=== PATIENT | female | born 1980 | race Caucasian/White ===

== ENCOUNTER → 2016-03-13 | Outpatient (CLI) | payer OTHER ==
[~2016-03-13] MED LIST: ACET-1311 PO; CLC100 PO; FENUGREEK PO; IBUP600T44 PO; IRON PO; MTR600X PO; MULT-506 PO; PRENTAB26 PO
== END | disposition home or self-care (01) ==
LOC: C.LABSPEC 13:01
PROVIDERS: ATTEND Obstetrics & Gynecology
DX: Z34.83 Encounter for supervision of other normal pregnancy, third trimester (principal)

== ENCOUNTER 2016-03-31 05:40 | Inpatient (IN) | payer OTHER ==
--- NOTE | 2016-03-24 10:14 | PAT Medication Instructions ---
Service Date Mar 24, 2016. Current Home Medication List Acetaminophen (Tylenol), 650 MG PO PRN Multivit/Min/Iron/Fol Ac/Pren ( Vitamin), 1 TAB PO QPM [Fenugree], 1 TAB PO TID [Iron], 1 TAB PO QPM Medication Instructions For Your Scheduled Surgery - Do not take the following medications the morning of surgery: [Fenugreek], 1 TAB PO TID - Take the following medications the morning of surgery with a sip of water OTHERWISE NOTHING TO EAT OR DRINK AFTER MIDNIGHT: Acetaminophen (Tylenol), 650 MG PO PRN (take if needed up to 4 hours prior to surgery) - Take the following medications as scheduled the night before surgery: [Iron], 1 TAB PO QPM [F[place]ug[place]], 1 TAB PO TID Multivit/Min/Iron/Fol Ac/Pren ( Vitamin), 1 TAB PO QPM If you have any questions please call us at [phone] or [phone] or [phone]
[2016-03-24 10:56] LABS: HEMATOCRIT 31.6 % (37-47); MEAN CORPUSCULAR HEMOGLOBIN 30.1 pg (25-34); MEAN CORPUSCULAR HGB CONC 34.2 g/dl (32-36); MEAN PLATELET VOLUME 9.5 fL (7.4-10.4); PLATELET COUNT 257 K/uL (130-400); RED BLOOD COUNT 3.59 M/uL (4.2-5.4); WHITE BLOOD COUNT 7.81 K/uL (4.8-10.8)
[2016-03-24 11:27] LABS: BASO % 0.1 %; BASO ABS # 0.01 K/uL (0-0.2); COMPLETE YES; EOS % 0.4 %; IG% 0.4 %; LYMPH % 19.3 %; LYMPH ABS # 1.51 K/uL (1.2-3.4); MONO % 6.4 %; NEUT % 73.4 %
--- NOTE | 2016-03-30 21:38 | History and Physical ---
History & Physical Date Mar 30, 2016. Chief Complaint Scheduled section History of Present Illness 35yo @ 40 04/01 presents for scheduled repeat section. complicated by h/o x 1, gluten intolerance and uterine leiomyoma. Also plans for tubal ligation at the time of section. She has been counseled on this in the office. Past Medical/Surgical History PMH: H/o kidney stones PSH: h/o Breast FNA x 2 (benign), x 1, wisdom teeth, teeth implants Additional History Hepatic Disease: No Endocrine Disorder: No Kidney Disease: No Hypertension: No Heart Disease: No Bleeding Tendencies: No Infectious Diseases: No Allergies Coded Allergies: Gluten (Unverified Allergy, Unknown, GLUTEN INTOLERANCE-ABDOMINAL CRAMPING ,FLU LIKE SYMPTOMS, 03/24/16) ALSO BARLEY INTOLERANCE-SAME Hydrocodone (Verified Adverse Reaction, Unknown, NAUSEA AND VOMITING, 03/24) Home Medications Scheduled Acetaminophen (Tylenol), 650 MG PO PRN Multivit/Min/Iron/Fol Ac/Pren ( Vitamin), 1 TAB PO QPM [Fenugree], 1 TAB PO TID [Iron], 1 TAB PO QPM Physical Examination Skin: warm/dry Eyes: normal inspection ENT: normal ENT inspection Head: normocephalic, atraumatic Neck: supple, no adenopathy Respiratory/Chest: normal breath sounds Cardiovascular: regular rate, rhythm Abdomen / GI: non tender Back: normal inspection Extremities: normal inspection Genitourinary - Female: normal pelvic exam Neurologic/Psych: no motor/sensory deficits Diagnosis Term Intrauterine H/o x 1 Plan of Treatment Admit to L&D. Repeat section. Tubal ligation per patient request.
[~2016-03-31] VITALS: Ht 170.2 cm; Wt 94.5 kg
[2016-03-31] VITALS (15 sets, daily range): BP systolic 103–120; BP diastolic 66–75; PULSE 70–89; TEMP 36.5–36.6; O2SAT 96–100; Ht 170.2 cm; Wt 94.5 kg
[~2016-03-31 05:40] MED LIST changes: -CLC100 PO; -IBUP600T44 PO; -MTR600X PO; -MULT-506 PO
[2016-03-31] MEDS ORDERED: LACTATED RINGER'S 1000ML 1,000 ML IV ONE (05:48)
[2016-03-31] MEDS ORDERED: CEFAZOLIN IV 2,000 MG in DEXTROSE 5% 50ML IV SCH (06:00)
[2016-03-31] MEDS ORDERED: CITRIC ACID/SODIUM CITRATE 15 ML UDC PO SCH (06:00)
[2016-03-31] MEDS ORDERED: LACTATED RINGER'S 1000ML 1,000 ML IV SCH (06:00)
[2016-03-31] MEDS ORDERED: PRENTAB26 PO (06:07)
[2016-03-31 06:25] LABS: BASO % 0.3 %; BASO ABS # 0.03 K/uL (0-0.2); COMPLETE YES; EOS % 0.5 %; HEMATOCRIT 32.2 % (37-47); IG% 0.5 %; LYMPH % 24.4 %; LYMPH ABS # 2.31 K/uL (1.2-3.4); MEAN CELL VOLUME 87.7 fL (80-100); MEAN CORPUSCULAR HEMOGLOBIN 29.7 pg (25-34); MEAN CORPUSCULAR HGB CONC 33.9 g/dl (32-36); MEAN PLATELET VOLUME 9.4 fL (7.4-10.4); MONO % 7.2 %; NEUT % 67.1 %; PLATELET COUNT 249 K/uL (130-400); RED BLOOD COUNT 3.67 M/uL (4.2-5.4); WHITE BLOOD COUNT 9.45 K/uL (4.8-10.8)
[2016-03-31] MEDS ORDERED: OXYTOCIN INJ 10 UNITS/ML VIAL ONE (07:01)
[2016-03-31] MEDS ORDERED: PHENYLEPHRINE HCL INJ 10 MG/ML VIAL ONE (07:01)
[2016-03-31] MEDS ORDERED: ONDANSETRON INJ 2 MG/ML 2 ML VIAL ONE ×2 (07:01→07:51)
[2016-03-31] MEDS ORDERED: EpHEDrine SULFATE INJ 50 MG/ML AMP ONE (07:04)
[2016-03-31] MEDS ORDERED: FENTANYL CITRATE INJ 50 MCG/1 ML 2 ML VIAL ONE (07:04)
[2016-03-31] MEDS ORDERED: MoRPHine SULFATE PF 1 MG/ML 10 ML AMP/VIAL ONE (07:04)
--- NOTE | 2016-03-31 07:16 | History & Physical Bridge Note ---
H&P Re-Evaluation Bridge Note: I have examined the patient, reviewed the History & Physical and in the interval since the performance of the History & Physical I have noted the following changes of clinical significance: No changes noted
[2016-03-31] MEDS ORDERED: DEXAMETHASONE SOD INJ 4 MG/ML VIAL ONE (07:51)
[2016-03-31] MEDS ORDERED: EpHEDrine SULFATE 50MG/5ML SYR ONE (08:01)
--- NOTE | 2016-03-31 08:41 | [facility] Post Operative Brief Note ---
Immediate Operative Summary Operative Date Mar 31, 2016. Pre-Operative Diagnosis HISTORY OF SECTION X1; DESIRE FOR PERMANENT STERILZATION Post-Operative Diagnosis SAME Procedure(s) Performed LOW TRANSVERSE SECTION AND BILATERAL TUBAL LIGATION with Filshie clips Surgeon DR KENT [employer] Superintendent Surgeon(s) DR SINGH Estimated Blood Loss 400 CC Findings Viable female , apgars 7/9. Weight pending. Normal tubes, ovaries. Uterus enlarged with left fibroid. Specimens CORD BLOOD CORD GASES PLACENTA-HOLD Drains linares, clear yellow at conclusion of case Anesthesia spinal Complication(s) None Disposition L&D
[2016-03-31] MEDS ORDERED: HYDROCORTISONE ACETATE 25 MG SUPP PR PRN (08:45)
[2016-03-31] MEDS ORDERED: BENZOCAINE 20% AER SPR 82.5 GM CAN EXT PRN (08:45)
[2016-03-31] MEDS ORDERED: SUPERCREAM 0.870 % 15GM JAR EXT PRN (08:45)
[2016-03-31] MEDS ORDERED: DIPHTHERIA/TETANUS/PERTUSSIS 0.5 ML SYR/VIAL IM. ONE (08:45)
[2016-03-31] MEDS ORDERED: SENNA 8.6 MG TAB PO PRN (08:45)
[2016-03-31] MEDS ORDERED: LANOLIN OINT EXT PRN ×2 (08:45)
[2016-03-31] MEDS ORDERED: SODIUM CHLORIDE 0.9% 1000ML 1,000 ML IV PRN (08:51)
[2016-03-31] MEDS ORDERED: LACTATED RINGER'S 1000ML 500 ML IV PRN (08:51)
[2016-03-31] MEDS ORDERED: NALOXONE HCL INJ 0.08 MG in SYRINGE 1.8 ML IV PRN (08:51)
--- NOTE | 2016-03-31 08:55 | Anesthesiology Progress Note ---
Anesthesia Post Op Note Date & Time Mar 31, 2016 at 08:53 Notes Mental Status: alert / awake / arousable, participated in evaluation Pt Amnestic to Procedure: Yes Nausea / Vomiting: adequately controlled Pain: adequately controlled Airway Patency, RR, SpO2: stable & adequate BP & HR: stable & adequate Hydration State: stable & adequate Neuraxial Anesthesia: was administered, sensory block is resolving Anesthetic Complications: no major complications apparent Pt had C/S and b/l tubal ligation under spinal anesthesia for h/o previous C/S. Her anesthetic course was uneventful. Post-op vitals BP 107/56, HR 67, RR 18, SpO2 95% on RA, T 36.5.
[2016-03-31] MEDS ORDERED: NALOXONE HCL 0.4 MG/1 ML VIAL/CARP IV PRN (09:00)
[2016-03-31] MEDS ORDERED: ONDANSETRON INJ 2 MG/ML 2 ML VIAL IV PRN (09:00)
[2016-03-31] MEDS ORDERED: MoRPHine SULFATE 2 MG/ML CARP IV PRN (09:00)
[2016-03-31] MEDS ORDERED: KETOROLAC TROMETHAMINE 30 MG/ML VIAL IV. PRN (09:00)
[2016-03-31] MEDS ORDERED: MEPERIDINE HCL 25 MG/ML CARP IV PRN (09:00)
[2016-03-31] MEDS ORDERED: PROMETHAZINE HCL INJ 25 MG in SODIUM CHLORIDE 0.9% 50ML 50 ML IV PRN (09:00)
[2016-03-31] MEDS ORDERED: NO NARCOTICS OR SEDATIVES SCH (09:00)
[2016-03-31] MEDS ORDERED: NALBUPHINE HCL INJ 10 MG/ML AMP IV PRN (09:00)
[2016-03-31] MEDS ORDERED: DiphenhydrAMINE HCL 50 MG/ML VIAL IV PRN (09:00)
[2016-03-31] MEDS ORDERED: EpHEDrine SULFATE INJ 50 MG/ML AMP IV PRN (09:00)
[2016-03-31] MEDS ORDERED: MoRPHine SULFATE PF 1 MG/ML 10 ML AMP/VIAL EPI PRN (09:00)
[2016-03-31] MEDS: OXYTOCIN INJ 20 UNITS in LACTATED RINGER'S 1000ML 1,000 ML IV SCH ×2 (09:19→17:31)
--- NOTE | 2016-03-31 15:15 | OPERATIVE REPORT ---
DATE OF OPERATION: 03/31/2016 PREOPERATIVE DIAGNOSES: 1. Term intrauterine . 2. History of section x1. 3. Desire for repeat section. 4. Desire for permanent sterilization. 5. Uterine fibroid. POSTOPERATIVE DIAGNOSIS: Same. PROCEDURE PERFORMED: Low transverse section and bilateral tubal ligation with Filshie clips. SURGEON: Olivia Salvador DO. LASER SYSTEMS ENGINEER: Huber SINGH M.D. ESTIMATED BLOOD LOSS: 400 mL. FINDINGS: Viable female , Apgars 7 and 9, weight pending. Normal tubes and ovaries, uterus is enlarged with a left fibroid. SPECIMENS: Cord blood, cord gas and placenta. DRAINS: [place], clear yellow at conclusion of case. ANESTHESIA: Spinal. COMPLICATIONS: None. DISPOSITION: Labor and delivery. DESCRIPTION OF PROCEDURE: The patient was seen in the labor and delivery room where risks, benefits, alternatives to surgery were reviewed. She had previously signed the informed consent in the office. All questions were answered. She stated again that she would like to have bilateral tubal sterilization performed at the time of section. She was then taken to the operating room where spinal anesthesia was introduced. She received 2 grams of Ancef prior to surgery. She was prepared and draped in the usual sterile fashion in the supine position with a leftward tilt. A timeout was called and confirmed. A Pfannenstiel skin incision was made with a scalpel and carried through to the underlying layer of the fascia with sharp, blunt and electrocautery dissection. The fascia was nicked at midline and the incision was extended both bluntly and sharply. The superior aspect of the fascial incision was grasped with Henri clamps x2, elevated off the underlying rectus abdominis muscles and dissected bluntly. In a similar fashion, the inferior aspect of this incision was dissected. The muscles were at midline with a hemostat and the peritoneum was entered bluntly digitally and this incision was extended bilaterally bluntly. The bladder blade was placed. The bladder flap was created with Metzenbaum scissors. The bladder blade was replaced. The low transverse incision was created with a new scalpel. This incision was extended cephalad/caudad manually. The membranes were ruptured with an Allis clamp. The was delivered from a cephalic presentation. The head delivered. Nuchal cord x1 was noted and easily reduced. The anterior and posterior shoulders were delivered followed by the body. A spontaneous cry was heard on the field. The cord was doubly clamped and cut. A segment was retained for cord gases. Cord blood was obtained. The baby was handed off to the waiting pediatrics team. The placenta was then delivered using gentle traction. The uterus was exteriorized from the abdomen. The uterus was cleared of all clots and debris. The hysterotomy incision was reapproximated using 0 Vicryl in a running locked stitch, a second layer of the same suture was used to imbricate the hysterotomy. The bilateral tubal ligation was performed using Filshie clips. First the right tube was grasped with a [place] confirmed to be fallopian tube, fimbria were visible. The Filshie clip was placed on the right tube, in a similar fashion the left tubal ligation was performed. The uterus was then gently returned to the abdomen. The gutters were cleared of all clots and debris. The hysterotomy incision was again inspected and noted to be hemostatic. The fascia was then reapproximated with 0 Vicryl in a running stitch. The subcutaneous tissue was reapproximated using 2-0 plain gut in a running stitch and the skin was reapproximated using 4-0 Vicryl in a running subcuticular stitch. The patient and the baby tolerated the procedure well. Sponge, instrument and needle counts were correct at the conclusion of the case. I attest to the content of the Intraoperative Record and any orders documented therein. Any exceptions are noted below. YIFAN
[2016-03-31] MEDS ORDERED: CEFAZOLIN IV 2,000 MG in DEXTROSE 5% 50ML 50 ML IV SCH (17:36)
[2016-03-31] MEDS: DOCUSATE SODIUM 100 MG CAP PO SCH (20:40)
[2016-04-01] VITALS (7 sets, daily range): BP systolic 96–123; BP diastolic 64–67; PULSE 80–90; TEMP 36.7–36.9; O2SAT 95–98
[2016-04-01] MEDS ORDERED: DC INTRASPINAL MORPHINE SCH (02:00)
[2016-04-01] MEDS ORDERED: KETOROLAC TROMETHAMINE 30 MG/ML VIAL IV. PRN (02:00)
[2016-04-01] MEDS ORDERED: ONDANSETRON INJ 2 MG/ML 2 ML VIAL IV PRN (02:00)
[2016-04-01] MEDS ORDERED: DiphenhydrAMINE HCL 50 MG/ML VIAL IV PRN (02:00)
--- NOTE | 2016-04-01 06:57 | Progress Note ---
Subjective Apr 01, 2016. Subjective conversation w/ patient, physical exam Ambulation: limited ambulation Voiding: linares catheter in place Passing Gas: No Diet Tolerance: Clear Liquids Lochia: Moderate Feeding Type: Breast Feeding Pain: Minor Incisional Pain Review of Systems Constitutional: No chills, No fever Respiratory: No cough, No shortness of breath Cardiac: No chest pain Breast: No breast pain Abdomen: No nausea, No pain, No vomiting Female : No dysuria Objective Vital Signs Date Time Temp Pulse Resp B/P Pulse Ox O2 Delivery O2 Flow Rate FiO2 04/01/16 04:00 36.8 90 16 97/66 95 Room Air 04/01/16 04:00 95 Room Air 04/01/16 02:00 16 97 04/01/16 01:15 96 Room Air 04/01/16 01:15 36.7 80 16 123/67 96 Room Air 04/01/16 01:00 16 98 04/01/16 00:00 18 97 03/31/16 23:00 18 97 03/31/16 22:25 18 96 03/31/16 22:00 18 97 03/31/16 21:00 18 97 03/31/16 20:35 36.6 18 103/66 97 Room Air 03/31/16 20:35 18 97 03/31/16 20:00 16 97 03/31/16 19:00 16 97 03/31/16 17:00 18 97 03/31/16 16:00 16 96 03/31/16 15:35 96 Room Air 03/31/16 15:00 18 99 03/31/16 15:00 18 100 03/31/16 14:00 18 99 03/31/16 13:00 36.5 70 18 120/75 97 Room Air 03/31/16 12:00 89 18 116/67 96 03/31/16 11:00 36.5 88 18 108/69 97 Room Air 03/31/16 11:00 99 Room Air 03/31/16 11:00 99 Room Air 03/31/16 11:00 18 99 Physical Exam General Appearance: WELL-APPEARING, WD/WN, NO APPARENT DISTRESS Respiratory/Chest: lungs clear, normal breath sounds Cardiovascular: regular rate, rhythm, no gallop, no murmur Abdomen: non tender, soft Fundus: Firm, Relation to Umbilicus (At Umbilicus) Incision Description: Clean, Dry & Intact Extremities: no calf tenderness Laboratory Results Last 24 Hours Test 04/01/16 06:00 Medications Current Inpatient Medications Medications (Trade) Dose Ordered Sig/Lucien Route Start Time Stop Time Status Last Admin Dose Admin Oxytocin/Lactated Ringer's (Pitocin Inj/Lr 1000ml) 1,002 ml @ 125 mls/hr Q8H1M IV 03/31/16 10:00 04/30/16 09:59 03/31/16 17:31 125 MLS/HR Ketorolac Tromethamine (Toradol Inj) 30 mg Q6H PRN IV. 04/01/16 02:00 04/06/16 01:59 Ibuprofen (Motrin Tab) 600 mg Q4H PRN PO 04/01/16 02:00 05/01/16 01:59 Ondansetron HCl (Zofran Inj) 4 mg Q4H PRN IV 04/01/16 02:00 05/01/16 01:59 Prenat Multivit/ [place]/Iron/Folic Ac ( Vitamin Tab) 1 tab DAILY PO 04/01/16 08:00 05/01/16 07:59 Bisacodyl (Dulcolax Tab) 5 mg HS ONCE PO 04/01/16 22:00 04/01/16 22:01 Bisacodyl (Dulcolax Supp) 10 mg PRN PRN NH 04/02/16 08:45 05/02/16 08:44 Docusate Sodium (coLACE CAP) 100 mg BID PO 03/31/16 20:00 04/30/16 19:59 03/31/16 20:40 100 MG Cocaine HCl (Supercream 0.870% Cr) BID PRN EXT 03/31/16 08:45 04/14/16 08:44 Lanolin (Lanolin Oint) PRN PRN EXT 03/31/16 08:45 04/30/16 08:44 Hydrocortisone Acetate (Anusol Hc Supp) 25 mg BID PRN [place] 03/31/16 08:45 04/30/16 08:44 Benzocaine (Dermoplast Aero Spr) 1 appln PRN PRN EXT 03/31/16 08:45 04/30/16 08:44 Diphenhydramine HCl (Benadryl Cap) 25 mg QID PRN PO 04/01/16 02:00 05/01/16 01:59 Diphenhydramine HCl (Benadryl Inj) 25 mg QID PRN IV 04/01/16 02:00 05/01/16 01:59 Senna (Senokot Tab) 17.2 mg HS PRN PO 03/31/16 08:45 04/30/16 08:44 Simethicone (Mylicon Chew Tab) 80 mg Q6H PRN PO 03/31/16 17:45 04/30/16 17:44 Assessment and Plan Post-Op Day#: 1 Continue Routine Care: - Vital Signs reviewed and WNL (temp max 36.8) - Blood Type: A+, GBS Negative, Rubella Immune - Encourage Ambulation today - Transition to PO Diet, tolerated liquid diet well - Linares catheter removed this morning, observe for urination - Pain well controlled with Yobani Resident Physician Supervision Note: I interviewed and examined the patient. Discussed with Dr. Monterroso and agree with findings and plan as documented in the note. Any exceptions or clarifications are listed here: POD#1 doing well. Continue ambulation, PO fluids. Advance diet. Continue routine postop care. Documented By: Olivia Salvador
[2016-04-01 07:45] LABS: BASO % 0.2 %; BASO ABS # 0.03 K/uL (0-0.2); COMPLETE YES; EOS % 0.2 %; HEMATOCRIT 31.2 % (37-47); IG% 0.3 %; LYMPH % 15.5 %; LYMPH ABS # 1.91 K/uL (1.2-3.4); MEAN CELL VOLUME 89.1 fL (80-100); MEAN CORPUSCULAR HEMOGLOBIN 29.7 pg (25-34); MEAN CORPUSCULAR HGB CONC 33.3 g/dl (32-36); MEAN PLATELET VOLUME 9.2 fL (7.4-10.4); MONO % 7.2 %; NEUT % 76.6 %; PLATELET COUNT 235 K/uL (130-400)
[2016-04-01] MEDS: IBUPROFEN 600 MG TAB PO PRN ×3 (08:04→17:25)
[2016-04-01] MEDS: PRENATAL VITAMIN TAB PO SCH (08:04)
[2016-04-01] MEDS: DOCUSATE SODIUM 100 MG CAP PO SCH ×2 (08:04→20:30)
[2016-04-01] MEDS: SIMETHICONE 80 MG CHEW PO PRN ×2 (17:25→22:11)
[2016-04-01] MEDS ORDERED: BISACODYL 5 MG TABEC PO ONE (22:00)
[2016-04-02] MEDS: IBUPROFEN 600 MG TAB PO PRN ×4 (00:50→23:21)
[2016-04-02 01:00] VITALS: BP 103/71; PULSE 83; TEMP 36.8
--- NOTE | 2016-04-02 07:01 | Progress Note ---
Subjective Apr 02, 2016. Subjective conversation w/ patient, physical exam Ambulation: ambulating normally Voiding: no voiding problems Passing Gas: Yes Diet Tolerance: Regular Diet Lochia: Moderate Feeding Type: Breast Feeding Pain: No pain reported this morning Review of Systems Constitutional: No chills, No fever Respiratory: No cough, No shortness of breath Cardiac: No chest pain Breast: No breast pain Abdomen: No nausea, No pain, No vomiting Female : No dysuria Objective Vital Signs Date Time Temp Pulse Resp B/P Pulse Ox O2 Delivery O2 Flow Rate FiO2 04/02/16 01:00 Room Air 04/02/16 01:00 36.8 83 20 103/71 Room Air 04/01/16 16:10 36.8 83 18 98/66 96 Room Air 04/01/16 16:10 96 Room Air 04/01/16 07:30 96 Room Air 04/01/16 07:30 36.9 82 18 96/64 96 Room Air Physical Exam General Appearance: WELL-APPEARING, WD/WN, NO APPARENT DISTRESS Respiratory/Chest: lungs clear, normal breath sounds Cardiovascular: regular rate, rhythm, no gallop, no murmur Abdomen: non tender, soft Fundus: Firm, Relation to Umbilicus (1cm below umbilicus) Incision Description: Clean, Dry & Intact Extremities: no calf tenderness Laboratory Results Last 24 Hours Test 04/01/16 07:10 04/02/16 06:00 White Blood Count 12.30 K/uL Red Blood Count 3.50 M/uL Hemoglobin 10.4 g/dL Hematocrit 31.2 % Mean Corpuscular Volume 89.1 fL Mean Corpuscular Hemoglobin 29.7 pg Mean Corpuscular Hemoglobin Concent 33.3 g/dl Platelet Count 235 K/uL Mean Platelet Volume 9.2 fL Neutrophils (%) (Auto) 76.6 % Lymphocytes (%) (Auto) 15.5 % Monocytes (%) (Auto) 7.2 % Eosinophils (%) (Auto) 0.2 % Basophils (%) (Auto) 0.2 % Neutrophils # (Auto) 9.41 K/uL Lymphocytes # (Auto) 1.91 K/uL Monocytes # (Auto) 0.88 K/uL Eosinophils # (Auto) 0.03 K/uL Basophils # (Auto) 0.03 K/uL RDW Standard Deviation 44.7 fL RDW Coefficient of Variation 13.8 % Immature Granulocyte % (Auto) 0.3 % Immature Granulocyte # (Auto) 0.04 K/uL Medications Current Inpatient Medications Medications (Trade) Dose Ordered Sig/Lucien Route Start Time Stop Time Status Last Admin Dose Admin Oxytocin/Lactated Ringer's (Pitocin Inj/Lr 1000ml) 1,002 ml @ 125 mls/hr Q8H1M IV 03/31/16 10:00 04/30/16 09:59 03/31/16 17:31 125 MLS/HR Ketorolac Tromethamine (Toradol Inj) 30 mg Q6H PRN IV. 04/01/16 02:00 04/06/16 01:59 Ibuprofen (Motrin Tab) 600 mg Q4H PRN PO 04/01/16 02:00 05/01/16 01:59 04/02/16 00:50 600 MG Ondansetron HCl (Zofran Inj) 4 mg Q4H PRN IV 04/01/16 02:00 05/01/16 01:59 Prenat Multivit/ [place]/Iron/Folic Ac ( Vitamin Tab) 1 tab DAILY PO 04/01/16 08:00 05/01/16 07:59 04/01/16 08:04 1 TAB Bisacodyl (Dulcolax Supp) 10 mg PRN PRN MO 04/02/16 08:45 05/02/16 08:44 Docusate Sodium (coLACE CAP) 100 mg BID PO 03/31/16 20:00 04/30/16 19:59 04/01/16 20:30 100 MG Cocaine HCl (Supercream 0.870% Cr) BID PRN EXT 03/31/16 08:45 04/14/16 08:44 Lanolin (Lanolin Oint) PRN PRN EXT 03/31/16 08:45 04/30/16 08:44 Hydrocortisone Acetate (Anusol Hc Supp) 25 mg BID PRN [place] 03/31/16 08:45 04/30/16 08:44 Benzocaine (Dermoplast Aero Spr) 1 appln PRN PRN EXT 03/31/16 08:45 04/30/16 08:44 Diphenhydramine HCl (Benadryl Cap) 25 mg QID PRN PO 04/01/16 02:00 05/01/16 01:59 Diphenhydramine HCl (Benadryl Inj) 25 mg QID PRN IV 04/01/16 02:00 05/01/16 01:59 Senna (Senokot Tab) 17.2 mg HS PRN PO 03/31/16 08:45 04/30/16 08:44 Simethicone (Mylicon Chew Tab) 80 mg Q6H PRN PO 03/31/16 17:45 04/30/16 17:44 04/01/16 22:11 80 MG Assessment and Plan Post-Op Day#: 2 Continue Routine Care: Resident Physician Supervision Note: I interviewed and examined the patient. Discussed with Dr. Monterroso and agree with findings and plan as documented in the note. Any exceptions or clarifications are listed here: [None] Documented By: Yelitza Owen - Vital Signs reviewed and WNL (temp max 36.8) - Blood Type: A+, GBS Negative, Rubella Immune - Encourage Ambulation today - Tolerating PO Diet - Pain well controlled with Motrin
--- NOTE | 2016-04-02 07:03 | Discharge Instructions ---
Discharge Instructions Admission Reason for Admission: Previous Section, Desires Sterilization Discharge Discharge Diagnosis / Problem: Cesarian Section Delivery Discharge Goals Goal(s): Routine recovery after Medications Continue Dispensed Medications: supercream, dermaplast, tucks, lansinoh Activity Recommendations Activity Limitations: per Instructions/Follow-up section . Instructions / Follow-Up Instructions / Follow-Up ACTIVITY RECOMMENDATIONS: * Gradual return to full activity over the next 2-3 weeks. * No lifting - nothing heavier than baby over the next 2-3 weeks. * Do not engage in vigorous exercise, sexual activity or sports until cleared by your physician. * Do not drive or operate any motorized equipment until cleared by your physician. * You may shower/bathe daily. MEDICATIONS: For discomfort or pain, you may use Acetaminophen (Tylenol), Ibuprofen (Advil), or Naproxen (Aleve) following the package directions. For constipation you may use Colace following the package directions. BREAST CARE: If you are not breast feeding: * Wear a supportive bra 24 hours a day for one to two weeks. * Avoid stimulating your breasts and nipples as much as possible during the first few weeks after delivery. * When taking a shower, have the warm water hit your back, not breasts. * When your breasts feel full, apply ice packs. Usually three to four times a day helps ease the discomfort. * Take a mild pain medication (Tylenol / Motrin) when you are uncomfortable. If breast feeding: * Use breast milk to lubricate nipples. Lansinoh cream may be used for sore nipples. You do not need to remove cream prior to breast feeding. If using a different brand of cream, check the label for directions regarding removal of cream prior to nursing. * Wear a supportive bra. * If having problems with breasts or breast feeding, call a industrial methods consultant or your health care provider. SPECIAL CARE INSTRUCTIONS: When you are discharged from the hospital, it is important for you to follow the instructions listed below: * During the first week at home, you should be able to care for yourself and your baby. In addition, the usual light household activities are encouraged. * Limit your activities to the way you feel. Do not try to clean the house or move furniture. Be sensible. * If you actively engage in sports and have done so up until the time of your delivery, you may resume these activities as soon as you feel able. This may take up to one month or even longer. Use good judgment. * Continue to take your vitamins for at least six weeks after the of your baby. * Your diet need not be limited unless you were on a special diet before your delivery. Breast-feeding mothers need around 2500 calories per day and at least 64-80 ounces of fluid per day (8 to 10 glasses). * You should eat foods from the four major food groups. Crash diets or fad diets are to be avoided. Eating lean meats, fresh fruits and vegetables, low-fat dairy products, high fiber foods and a regular exercise program, will help you get back to your pre- weight without putting your health at risk. * Constipation is sometimes a problem after delivery. Take a mild laxative as needed. If breast feeding, Milk of Magnesia is acceptable to use. You may use a suppository or Fleets enema. * A daily shower or tub bath is suggested. Wash incision daily with warm soapy water and pat dry. It doesn't need to be covered unless drainage is present. * A bloody vaginal discharge will usually continue until around four weeks . A small amount of bleeding may continue for as long as six weeks. Vaginal discharge changes from the bright red bleeding after delivery to pink then brownish and finally yellowish-pink before becoming white and disappearing. * Bleeding may increase with activity. Your first period may come in 4-8 weeks. If you are breast feeding, your period may be delayed even longer. * [place] (sex) can begin whenever both you and your partner feel comfortable and do not have any form of genital infection. It is recommended that you wait at least six weeks for internal and external healing to occur. If you have questions, please talk to your health care practitioner. A condom should be used to prevent infection and . * Foreplay, gentle intercourse and lubrication is very important the first several times to prevent pain. A water-based lubricant such as K-Y jelly or Astroglide may be used. * If you have RH negative blood and your baby is RH positive, you will receive RHOGAM by injection prior to discharge. The nurse will give you a card to keep with you that has the date and place that you received RHOGAM after delivery. * During your care, you had a Rubella screen done to check for the presence of rubella antibodies in your blood. If your test was negative, you will receive a Rubella vaccine prior to discharge. This vaccine may cause a fever, soreness at the injection site and flu-like symptoms. If these symptoms persist, notify your health care practitioner. is not advised for one month after a Rubella vaccine. * Verbalizes understanding of car seat law as reviewed with patient nursing. * Car Seat hand-out given and reviewed with patient by nursing. * Shaken baby information reviewed with patient by nursing. Call you doctor if: * Heavy bleeding (saturating several pads an hour) or passing clots the size of your fist. * A fever >101 degrees F (38.3 degrees C) on two occasions four hours apart and /or chills. * Unusual pain in the pelvic or vaginal areas. * Call the doctor for any increased redness, drainage or swelling around the incision and any pain unrelieved by prescribed pain medication. * "Baby Blues" lasting longer than two weeks. If you have any questions or concerns, call your health care practitioner at . FOLLOW UP VISIT: * Please call the office at to schedule a 6 week examination. It is important you keep this appointment. It is important for you to make arrangements for either yearly or twice yearly check-ups thereafter. Current Hospital Diet Patient's current hospital diet: Regular OB Diet, Gluten Free Diet Discharge Diet Recommended Diet: Regular Diet Procedures Procedures Performed: LOW TRANSVERSE SECTION AND BILATERAL TUBAL LIGATION with Filshie clips Pending Studies Studies pending at discharge: no Medical Emergencies . Who to Call and When: Medical Emergencies: If at any time you feel your situation is an emergency, please call [phone] immediately. . Non-Emergent Contact Non-Emergency issues call your: Shank Archer . . "Provider Documentation" section prepared by Huber Monterroso. VTE Core Measure Inpt VTE Proph given/why not?: Treatment not indicated
[2016-04-02 07:30] VITALS: BP 105/70; PULSE 88; TEMP 36.5; O2SAT 94; O2SAT 99
[2016-04-02] MEDS ORDERED: MTR600X PO (07:45)
[2016-04-02 08:01] LABS: HEMATOCRIT 28.1 % (37-47)
[2016-04-02] MEDS ORDERED: BISACODYL 10 MG SUPP PR PRN (08:45)
[2016-04-02] MEDS: SIMETHICONE 80 MG CHEW PO PRN ×2 (08:48→23:21)
[2016-04-02] MEDS: PRENATAL VITAMIN TAB PO SCH (08:48)
[2016-04-02] MEDS: DOCUSATE SODIUM 100 MG CAP PO SCH ×2 (08:48→19:16)
[2016-04-02 16:10] VITALS: BP 106/75; PULSE 86; TEMP 37.2; O2SAT 96
[2016-04-02 23:29] VITALS: BP 117/80; PULSE 76; TEMP 36.7
[2016-04-03] MEDS: IBUPROFEN 600 MG TAB PO PRN ×3 (03:32→14:23)
--- NOTE | 2016-04-03 06:56 | Progress Note ---
Subjective Apr 03, 2016. Subjective conversation w/ patient, physical exam Ambulation: ambulating normally Voiding: no voiding problems Passing Gas: Yes Diet Tolerance: Regular Diet Lochia: Moderate Feeding Type: Breast Feeding Pain: No pain reported this morning Review of Systems Constitutional: No chills, No fever Respiratory: No cough, No shortness of breath Cardiac: No chest pain Breast: No breast pain Abdomen: No nausea, No pain, No vomiting Female : No dysuria Objective Vital Signs Date Time Temp Pulse Resp B/P Pulse Ox O2 Delivery O2 Flow Rate FiO2 04/02/16 23:32 Room Air 04/02/16 23:29 36.7 76 18 117/80 Room Air 04/02/16 16:10 96 Room Air 04/02/16 16:10 37.2 86 18 106/75 96 Room Air 04/02/16 07:30 99 Room Air 04/02/16 07:30 36.5 88 14 105/70 94 Room Air Physical Exam General Appearance: WELL-APPEARING, WD/WN, NO APPARENT DISTRESS Respiratory/Chest: lungs clear, normal breath sounds Cardiovascular: regular rate, rhythm, no gallop, no murmur Abdomen: non tender, soft Fundus: Firm, Relation to Umbilicus (At umbilicus) Incision Description: Clean, Dry & Intact Extremities: no calf tenderness Laboratory Results Last 24 Hours Test 04/02/16 07:29 Hemoglobin 9.2 g/dL Hematocrit 28.1 % Medications Current Inpatient Medications Medications (Trade) Dose Ordered Sig/Lucien Route Start Time Stop Time Status Last Admin Dose Admin Oxytocin/Lactated Ringer's (Pitocin Inj/Lr 1000ml) 1,002 ml @ 125 mls/hr Q8H1M IV 03/31/16 10:00 04/30/16 09:59 03/31/16 17:31 125 MLS/HR Ketorolac Tromethamine (Toradol Inj) 30 mg Q6H PRN IV. 04/01/16 02:00 04/06/16 01:59 Ibuprofen (Motrin Tab) 600 mg Q4H PRN PO 04/01/16 02:00 05/01/16 01:59 04/03/16 03:32 600 MG Ondansetron HCl (Zofran Inj) 4 mg Q4H PRN IV 04/01/16 02:00 05/01/16 01:59 Prenat Multivit/ [place]/Iron/Folic Ac ( Vitamin Tab) 1 tab DAILY PO 04/01/16 08:00 05/01/16 07:59 04/02/16 08:48 1 TAB Bisacodyl (Dulcolax Supp) 10 mg PRN PRN RI 04/02/16 08:45 05/02/16 08:44 Docusate Sodium (coLACE CAP) 100 mg BID PO 03/31/16 20:00 04/30/16 19:59 04/02/16 08:48 100 MG Cocaine HCl (Supercream 0.870% Cr) BID PRN EXT 03/31/16 08:45 04/14/16 08:44 Lanolin (Lanolin Oint) PRN PRN EXT 03/31/16 08:45 04/30/16 08:44 Hydrocortisone Acetate (Anusol Hc Supp) 25 mg BID PRN RI 03/31/16 08:45 04/30/16 08:44 Benzocaine (Dermoplast Aero Spr) 1 appln PRN PRN EXT 03/31/16 08:45 04/30/16 08:44 Diphenhydramine HCl (Benadryl Cap) 25 mg QID PRN PO 04/01/16 02:00 05/01/16 01:59 Diphenhydramine HCl (Benadryl Inj) 25 mg QID PRN IV 04/01/16 02:00 05/01/16 01:59 Senna (Senokot Tab) 17.2 mg HS PRN PO 03/31/16 08:45 04/30/16 08:44 Simethicone (Mylicon Chew Tab) 80 mg Q6H PRN PO 03/31/16 17:45 04/30/16 17:44 04/02/16 23:21 80 MG Assessment and Plan Post-Op Day#: 3 Continue Routine Care: -Vital Signs reviewed and WNL (temp max 36.7) - Blood Type: A+, GBS Negative, Rubella Immune - Encourage Ambulation today - Tolerating PO Diet - Voiding well - Pain well controlled - Discharge today Resident Physician Supervision Note: I interviewed and examined the patient. Discussed with Dr. Monterroso and agree with findings and plan as documented in the note. Any exceptions or clarifications are listed here: [None] Documented By: Loi Jacob
[2016-04-03 08:35] VITALS: BP 113/75; PULSE 87; TEMP 36
[2016-04-03] MEDS: SIMETHICONE 80 MG CHEW PO PRN (08:41)
[2016-04-03] MEDS: DOCUSATE SODIUM 100 MG CAP PO SCH (08:41)
[2016-04-03] MEDS: PRENATAL VITAMIN TAB PO SCH (08:41)
[2016-04-03 14:48] VITALS: BP_DIAS 75; PULSE 87; TEMP 36
--- NOTE | 2016-04-16 09:50 | DISCHARGE SUMMARY ---
DIAGNOSES: 1. Term intrauterine . 2. History of section x1. 3. Desire for repeat section. 4. Desire for permanent sterilization. 5. Uterine fibroid. PROCEDURES PERFORMED: 1. Repeat low transverse section. 2. Bilateral tubal ligation with [place] clips. FINDINGS: Viable female , Apgars 7 and 9, normal tubes and ovaries with an enlarged uterus with a left fibroid. COURSE OF STAY: The patient was admitted for section. This was followed by an unremarkable postoperative stay. She was discharged to home on 04/03/2016. ACTIVITY: No heavy lifting and pelvic rest. MEDICATIONS: Percocet and Motrin. FOLLOWUP: Office in 6 weeks. DIET: Regular. CONDITION ON DISCHARGE: Stable and good. YIFAN
== END 2016-04-03 16:05 | disposition home or self-care (01) | DRG 765 ==
LOC: C.LD 05:40 → EDSTATUS 09:11 → C.OBG 11:03
PROVIDERS: ADMIT Obstetrics & Gynecology; ATTEND Obstetrics & Gynecology
PROC: 0UL70ZZ Occlusion of Bilateral Fallopian Tubes, Open Approach (ICD-10-PCS; principal; 2016-03-31 07:30)
PROC: 10D00Z1 Extraction of Products of Conception, Low, Open Approach (ICD-10-PCS; principal; 2016-03-31 07:30)
DX: O34.219 Maternal care for unspecified type scar from previous cesarean delivery (principal); K90.41 Non-celiac gluten sensitivity; Z37.0 Single live birth; O34.13 Maternal care for benign tumor of corpus uteri, third trimester; O75.89 Other specified complications of labor and delivery; O99.02 Anemia complicating childbirth; D64.9 Anemia, unspecified; D25.9 Leiomyoma of uterus, unspecified; O69.81X0 Labor and delivery complicated by cord around neck, without compression, not applicable or unspecified; Z30.2 Encounter for sterilization; Z3A.39 39 weeks gestation of pregnancy; Z79.899 Other long term (current) drug therapy

== ENCOUNTER 2018-06-11 15:15 | Inpatient (IN) ==
[2018-06-11] MEDS ORDERED: KETOROLAC TROMETHAMINE 15 MG/ML VIAL IV ONE (16:20)
[2018-06-11] MEDS ORDERED: ONDANSETRON INJ 2 MG/ML 2 ML VIAL IV STA (16:20)
[2018-06-11] MEDS ORDERED: ACETAMINOPHEN 500 MG TAB PO STA (16:20)
[2018-06-11] MEDS ORDERED: SODIUM CHLORIDE 0.9% 1000ML 2,000 ML IV SCH (16:30)
[2018-06-11 16:43] LABS: Basophils # (auto) 0.03 K/uL (0-0.2); Basophils % (auto) 0.2 %; Eosinophils # (auto) 0.04 K/uL (0-0.5); Eosinophils % (auto) 0.2 %; Hemoglobin 13.2 g/dL (12.0-16.0); Immature Granulocytes # (auto) 0.08 K/uL (0.00-0.02); Immature Granulocytes % (auto) 0.4 %; Lymphocytes # (auto) 1.38 K/uL (1.2-3.4); Lymphocytes % (auto) 7.2 %; Mean Corpuscular Hgb Conc 34.7 g/dL (32-36); Mean Corpuscular Volume 84.3 fL (80-100); Mean Platelet Volume 8.9 fL (7.4-10.4); Monocytes # (auto) 1.77 K/uL (0.11-0.59); Monocytes % (auto) 9.2 %; Neutrophils # (auto) 15.99 K/uL (1.4-6.5); Neutrophils % (auto) 82.8 %; Platelet Count 310 K/uL (130-400); RDW Coefficient of Variation 13.6 % (11.5-14.5); RDW Standard Deviation 41.8 fL (36.4-46.3); Red Blood Count 4.51 M/uL (4.2-5.4); White Blood Count 19.29 K/uL (4.8-10.8)
[2018-06-11 16:54] LABS: Appearance Urine Clear (Clear); Bacteria Urine Automated Negative (Negative); Blood Urine Trace (Negative); Color Urine Dark Yellow; Epithelial Cell Urine Auto >30 /lpf (0-5); Glucose Urine UA Negative (Negative); Leukocyte Esterase Urine Negative (Negative); Nitrite Urine Negative (Negative); Protein Urine 2+ (Negative); RBC Urine Automated 0-4 /hpf (0-4); Specific Gravity Urine 1.025 (1.000-1.030); Urobilinogen Urine Negative (Negative)
[2018-06-11 16:54] LABS: INR 1.2 (0.9-1.1); Prothrombin Time 11.9 Seconds (9.0-12.0)
[2018-06-11 17:00] LABS: Bilirubin Urine Negative (Negative); Ictotest Urine Negative (Negative)
[2018-06-11 17:02] LABS: Albumin Level 3.1 gm/dl (3.4-5.0); BUN Creatinine Ratio 7.3 (10-20); Calcium 9.5 mg/dl (8.5-10.1); Creatinine Clr Calc Pharmacy 117.2 ml/min; Est GFR (African American) 124.9; Est GFR (Non-African American) 107.7; Potassium 2.8 mmol/L (3.5-5.1)
[2018-06-11 17:02] LABS: Ketones Urine 4+ (Negative)
[2018-06-11 17:05] LABS: Albumin Globulin Ratio 0.5 (0.9-2); Bilirubin,Total 0.5 mg/dl (0.2-1); Globulin 5.8 gm/dl (2.5-4.0); Total Protein 8.9 gm/dl (6.4-8.2)
[2018-06-11] MEDS ORDERED: IOVERSOL 100ml IV PRN (17:49)
--- NOTE | 2018-06-11 18:02 | CT Scan Report ---
ABDOMEN AND PELVIS CT WITH IV CONTRAST CT DOSE: 553.62 mGycm HISTORY: Right lower quadrant abdominal pain. TECHNIQUE: Multiaxial CT images of the abdomen and pelvis were performed following the use of intrave nous contrast. A dose lowering technique was utilized adhering to the principles of ALARA. COMPARISON STUDY: None. FINDINGS: Mild dependent changes seen within the lung bases. No pneumoperitoneum. No pneumatosis. No suspicious lytic or blastic osseous lesions. No hepatic or splenic masses. The adrenal glands, pancre as, gallbladder, and kidneys are unremarkable. No hydronephrosis. Subcentimeter retroperitoneal lymph nodes do not meet CT criteria for pathologic involvement. Multiple mildly enlarged mesenteric lymph nodes. Dominant ileocolic lymph nodes measure up to 15 x 11 mm. Bilateral tubal ligation clips are no dada. The bladder is unremarkable. Trace pelvic free fluid. Mild thickening of the sigmoid colon. Ther e is moderate thickening of the patient and:. There are severe bowel wall thickening involving the tr ansverse colon and ascending colon including the cecum. There is mild pericolonic fat stranding and e mary. Therefore, these findings are consistent with a pancolitis. Normal appendix. No evidence for roula wel obstruction. IMPRESSION: 1. Nonspecific pancolitis. This likely represents an infectious colitis or inflammatory bowel disease . 2. No evidence for bowel obstruction. 3. Normal appendix. 4. Mildly enlarged mesenteric lymph nodes. These may be reactive to the colitis. Electronically signed by: Poli Pike M.D. 06/11/2018 6:01 PM
[2018-06-11] MEDS: POTASSIUM CHLORIDE / WTR 10 MEQ/100 ML PLCT IV SCH ×2 (18:08→19:10)
--- NOTE | 2018-06-11 20:23 | Emergency Department Note ---
Entered by Bobby Vazquze acting as a scribe for Girish Morrison DO History of Present Illness General Chief complaint: Abdominal Pain Stated complaint: NAUSEA, VOMITTING, DIARRHEA, ABD PAIN Source: patient History of Present Illness Onset (ago): day(s) 8 Location: abdomen Pain Consistency: + constant Quality: + other (worsening abdominal soreness) Relieved By: + medication (diarrhea somewhat with Imodium) Exacerbated By: + eating (diarrhea) Associated symptoms: + fever/chills (101), + loss of appetite and + other (diarrhea); no cough The patient is a 37 year female who presents to the Emergency Room with complaints of constant and worsening abdominal pain beginning 8 days ago. The patient reports that primarily her right abdomen first became sore, and it has now developed into worsening pain. She states that she has had persistent diarrhea over the same time period, exacerbated with eating/drinking and somewhat improved with Imodium. Today she developed fevers of 101. She now notes loss of appetite and congestion. She denies urinary symptoms, vaginal bleeding/discharge, sore throat, or coughing. 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 She reports a history of section and denies other abdominal surgeries. Her last period was three weeks ago. Home Medications Home Medications Medication Instructions Recorded Confirmed Type ixekizumab [Taltz Syringe] 80 mg SUBCUT MONTHLY 06/11/18 06/11/18 History Allergies Allergy/AdvReac Type Severity Reaction Status Date / Time gluten Allergy Unknown GLUTEN Verified 06/11/18 17:13 INTOLERANCE-ABDOMINAL CRAMPING,FLU LIKE SYMPTOMS hydrocodone AdvReac Unknown NAUSEA AND Verified 06/11/18 17:13 VOMITING Past Med/Surg History Surgical History History of section Social History Preferred Language: [place] current occupational status: employed Feels Safe at Home: Yes Smoking Status: Never smoker Review of Systems See HPI for pertinent positives & negatives. and A total of 10 systems reviewed and were otherwise negative Physical Exam Vital Signs Vital Signs - 24 hr 06/11/18 15:47 06/11/18 17:18 06/11/18 17:55 Temperature 37.8 C H Temperature Source Oral Sepsis Recent Fever Within 48 Hours No Sepsis New/Unexplained Change in Mental Status No Sepsis Action Taken by Nursing No Action Required Pulse Rate 127 H Pulse Rate [Apical] 99 H Respiratory Rate 18 16 Respiratory Effort / Characteristics Non-Labored Respiratory Depth Normal Respiratory Pattern Regular Blood Pressure 122/79 Blood Pressure [Left Arm] 102/61 Blood Pressure Mean 93 Blood Pressure Mean [Left Arm] 74 Blood Pressure Position [Left Arm] Lying Pulse Oximetry 100 98 95 Oxygen Delivery Method Room Air Room Air Room Air GENERAL: Sitting up in bed, alert, well appearing, well nourished, no distress, non-toxic EYE EXAM: normal conjunctiva. OROPHARYNX: no exudate, no erythema, lips, buccal mucosa, and tongue normal and mucous membranes are moist NECK: supple, no nuchal rigidity, no adenopathy, non-tender LUNGS: Clear to auscultation. Normal chest wall mechanics HEART: tachycardia, no murmurs, S1 normal and S2 normal ABDOMEN: abdomen soft, RLQ to right mid-abdomen tenderness, normo-active bowel, sounds, no masses, no rebound or guarding. BACK: Back is symmetrical on inspection and there is no deformity, no midline tenderness, no CVA tenderness. SKIN: no rashes and no bruising UPPER EXTREMITIES: upper extremities are grossly normal. LOWER EXTREMITIES: No pitting edema. NEURO EXAM: Normal sensorium, cranial nerves II-XII grossly intact, normal speech, no gross weakness of arms, no gross weakness of legs. Gross sensation intact. Course ED COURSE: Vital signs were reviewed and showed tachycardia and febrile The patients medical record was reviewed The above diagnostic studies were performed and reviewed. ED treatments and interventions as stated above. 1616: The patient was evaluated in room A9B. A complete history and physical examination was performed. 1825: I consulted Dr. Georgette PATRICIA. He recommends holding antibiotics. 184: I updated the patient on current results. 184: I consulted Dr. Pillai [facility] Hospitalist. The patient will be reevaluated for hospitalization. Based on the patients age, coexisting illnesses, exam and lab findings the decision to treat as an inpatient was made. The patient remained stable while under my care. The patient will be evaluated for further management. Administered Medications Ioversol (Optiray 320 100ml) 94 ml IV ONCE PRN PRN Reason: Interaction Checking Stop: 06/15/18 17:48 Last Admin: 06/11/18 17:49 Dose: 94 ml Documented by: [id number] Discontinued Medications Acetaminophen (Tylenol) 1,000 mg PO NOW STA Stop: 06/11/18 16:21 Last Admin: 06/11/18 16:55 Dose: Not Given Documented by: [id number] Sodium Chloride (Nss 1000ml) 2,000 mls @ 999 mls/hr IV .Q2H1M MARIA GUADALUPE Stop: 06/11/18 18:30 Last Infusion: 06/11/18 18:44 Dose: 0 mls/hr Documented by: [id number] Admin: 06/11/18 16:54 Dose: 999 mls/hr Documented by: [id number] Potassium Chloride (K Dino / Wtr) 10 meq in 100 mls @ 100 mls/hr IV Q1H MARIA GUADALUPE Stop: 06/11/18 19:44 Last Admin: 06/11/18 19:10 Dose: 100 mls/hr Documented by: [id number] Infusion: 06/11/18 19:09 Dose: 0 mls/hr Documented by: [id number] Admin: 06/11/18 18:08 Dose: 100 mls/hr Documented by: [id number] Ketorolac Tromethamine (Toradol) 10 mg IV NOW ONE Stop: 06/11/18 16:21 Last Admin: 06/11/18 16:54 Dose: 10 mg Documented by: [id number] Ondansetron HCl (Zofran) 4 mg IV NOW STA Stop: 06/11/18 16:21 Last Admin: 06/11/18 16:54 Dose: 4 mg Documented by: [id number] Medical Decision Making Differential Diagnosis Differential diagnoses includes but is not limited to gastritis, peptic ulcer disease, GERD, gallbladder disease, pancreatitis, small bowel obstruction, acute coronary syndrome, pericarditis, ischemic bowel, irritable bowel disease, irritable bowel syndrome, appendicitis, diverticulitis, malignancy, hernia, u rinary tract infection, torsion, /ectopic , perforation, trauma, infectious. Medical Records Attestation: I reviewed the patient's medical records. Home Medications Current Medication List: was personally reviewed by me Laboratory Data Attestation: I reviewed the patient's lab results. Result diagrams: 06/11/18 16:31 06/11/18 16:31 Lab Results 06/11/18 06/11/18 06/11/18 Range/Units 16:31 16:31 16:31 WBC 19.29 H (4.8-10.8) K/uL RBC 4.51 (4.2-5.4) M/uL Hgb 13.2 (12.0-16.0) g/dL Hct 38.0 (37-47) % MCV 84.3 (80-100) fL MCH 29.3 (25-34) pg MCHC 34.7 (32-36) g/dL RDW Std Deviation 41.8 (36.4-46.3) fL RDW Coeff of Gita 13.6 (11.5-14.5) % Plt Count 310 (130-400) K/uL MPV 8.9 (7.4-10.4) fL Immature Gran % (Auto) 0.4 % Neut % (Auto) 82.8 % Lymph % (Auto) 7.2 % [place] % (Auto) 9.2 % Eos % (Auto) 0.2 % Baso % (Auto) 0.2 % Immature Gran # (Auto) 0.08 H (0.00-0.02) K/uL Neut # (Auto) 15.99 H (1.4-6.5) K/uL Lymph # (Auto) 1.38 (1.2-3.4) K/uL [place] # (Auto) 1.77 H (0.11-0.59) K/uL Eos # (Auto) 0.04 (0-0.5) K/uL Baso # (Auto) 0.03 (0-0.2) K/uL PT 11.9 (9.0-12.0) Seconds INR 1.2 H (0.9-1.1) Sodium 133 L (136-145) mmol/L Potassium 2.8 L (3.5-5.1) mmol/L Chloride 98 (98-107) mmol/L Carbon Dioxide 22 (21-32) mmol/L Anion Gap 14.0 H (3-11) BUN 5 L (7-18) mg/dl Creatinine 0.72 (0.6-1.2) mg/dl Est Cr Clr Drug Dosing 117.2 ml/min Est GFR ( Amer) 124.9 Est GFR (Non-Af Amer) 107.7 BUN/Creatinine Ratio 7.3 L (10-20) Glucose 84 (70-99) mg/dl Calcium 9.5 (8.5-10.1) mg/dl Total Bilirubin 0.5 (0.2-1) mg/dl AST 13 L (15-37) U/L ALT 15 (12-78) U/L Alkaline Phosphatase 60 (45-117) U/L Total Protein 8.9 H (6.4-8.2) gm/dl Albumin 3.1 L (3.4-5.0) gm/dl Globulin 5.8 H (2.5-4.0) gm/dl Albumin/Globulin Ratio 0.5 L (0.9-2) Lipase 95 (73-393) U/L Urine Color Urine Appearance (Clear) Urine pH (4.5-7.5) Ur Specific [place] (1.000-1.030) Urine Protein (Negative) Urine Glucose (UA) (Negative) Urine Ketones (Negative) Urine Blood (Negative) Urine Nitrite (Negative) Urine Bilirubin (Negative) Urine Urobilinogen (Negative) Ur Leukocyte Esterase (Negative) Urine WBC (Auto) (0-5) /hpf Urine RBC (Auto) (0-4) /hpf U Hyaline Cast (Auto) (0-5) /lpf U Epithel Cells (Auto) (0-5) /lpf Urine Bacteria (Auto) (Negative) Stl C. diff Tox B Gene (Neg) 06/11/18 06/11/18 Range/Units 16:32 16:32 WBC (4.8-10.8) K/uL RBC (4.2-5.4) M/uL Hgb (12.0-16.0) g/dL Hct (37-47) % MCV (80-100) fL MCH (25-34) pg MCHC (32-36) g/dL RDW Std Deviation (36.4-46.3) fL RDW Coeff of Gita (11.5-14.5) % Plt Count (130-400) K/uL MPV (7.4-10.4) fL Immature Gran % (Auto) % Neut % (Auto) % Lymph % (Auto) % [place] % (Auto) % Eos % (Auto) % Baso % (Auto) % Immature Gran # (Auto) (0.00-0.02) K/uL Neut # (Auto) (1.4-6.5) K/uL Lymph # (Auto) (1.2-3.4) K/uL [place] # (Auto) (0.11-0.59) K/uL Eos # (Auto) (0-0.5) K/uL Baso # (Auto) (0-0.2) K/uL PT (9.0-12.0) Seconds INR (0.9-1.1) Sodium (136-145) mmol/L Potassium (3.5-5.1) mmol/L Chloride (98-107) mmol/L Carbon Dioxide (21-32) mmol/L Anion Gap (3-11) BUN (7-18) mg/dl Creatinine (0.6-1.2) mg/dl Est Cr Clr Drug Dosing ml/min Est GFR ( Amer) Est GFR (Non-Af Amer) BUN/Creatinine Ratio (10-20) Glucose (70-99) mg/dl Calcium (8.5-10.1) mg/dl Total Bilirubin (0.2-1) mg/dl AST (15-37) U/L ALT (12-78) U/L Alkaline Phosphatase (45-117) U/L Total Protein (6.4-8.2) gm/dl Albumin (3.4-5.0) gm/dl Globulin (2.5-4.0) gm/dl Albumin/Globulin Ratio (0.9-2) Lipase (73-393) U/L Urine Color Dark Yellow Urine Appearance Clear (Clear) Urine pH 6.0 (4.5-7.5) Ur Specific [place] 1.025 (1.000-1.030) Urine Protein 2+ H (Negative) Urine Glucose (UA) Negative (Negative) Urine Ketones 4+ H (Negative) Urine Blood Trace H (Negative) Urine Nitrite Negative (Negative) Urine Bilirubin Negative (Negative) Urine Urobilinogen Negative (Negative) Ur Leukocyte Esterase Negative (Negative) Urine WBC (Auto) 1-5 (0-5) /hpf Urine RBC (Auto) 0-4 (0-4) /hpf U Hyaline Cast (Auto) 5-10 H (0-5) /lpf U Epithel Cells (Auto) >30 H (0-5) /lpf Urine Bacteria (Auto) Negative (Negative) Stl C. diff Tox B Gene Negative Cdiff Gene (Neg) Imaging Data Radiologist's Impression: Radiology results as stated below per my review and the radiologist's interpretation: ABDOMEN AND PELVIS CT WITH IV CONTRAST CT DOSE: 553.62 mGycm HISTORY: Right lower quadrant abdominal pain. TECHNIQUE: Multiaxial CT images of the abdomen and pelvis were performed follow ing the use of intravenous contrast. A dose lowering technique was utilized adhering to the principles of ALARA. COMPARISON STUDY: None. FINDINGS: Mild dependent changes seen within the lung bases. No pneumoperitoneum. No pneumatosis. No suspicious lytic or blastic osseous lesions. No hepatic or splenic masses. The adrenal glands, pancreas, gallbladder, and kidneys are unremarkable. No hydronephrosis. Subcentimeter retroperitoneal lymph nodes do not meet CT criteria for pathologic involvement. Multiple mildly enlarged mesenteric lymph nodes. Dominant ileocolic lymph nodes measure up to 15 x 11 mm. Bilateral tubal ligation clips are noted. The bladder is unremarkable. Trace pelvic free fluid. Mild thickening of the sigmoid colon. There is moderate thickening of the patient and:. There are severe bowel wall thickening involving the transverse colon and ascending colon including the cecu m. There is mild pericolonic fat stranding and edema. Therefore, these findings are consistent with a pancolitis. Normal appendix. No evidence for bowel obstruction. IMPRESSION: 1. Nonspecific pancolitis. This likely represents an infectious colitis or inflammatory bowel disease. 2. No evidence for bowel obstruction. 3. Normal appendix. 4. Mildly enlarged mesenteric lymph nodes. These may be reactive to the colitis. Electronically signed by: Poli Pike M.D. 06/11/2018 6:01 PM Blood Pressure Blood Pressure Findings: Normal blood pressure Blood Pressure Disposition: did not require urgent referral MDM Narrative Patient is a 37-year-old female who presents the ER for diarrhea which is been present for the past 8 days. She has significant worsening right-sided abdominal pain. Last menstrual period was 3 weeks ago. Upon presentation she is found to be febrile and tachycardic. She is temps at home which were elevated as well. Labs were obtained and showed a leukocytosis of 19.3 thousand. No significant anemia. BMP with mild hyponatremia and hypokalemia at 2.8. No significant transaminitis. Lipase is normal. UA was contaminated. C. difficile was negative. Patient had a CT abdomen pelvis which shows a diffuse pancolitis. Patient was given IV fluids. She declined pain medications. She was discussed with unassigned gastroenterology who recommended holding on antibiotics at this time. She was updated at bedside. Discussed with the hospitalist. Patient will be observed overnight for her leukocytosis fever and pancolitis. Impression & Plan Colitis, Leukocytosis, Fever Discharge Plan Visit Data Chief Complaint: Abdominal Pain Stated Complaint: NAUSEA, VOMITTING, DIARRHEA, ABD PAIN ED Provider: Girish Morrison Discharge Problem: Colitis, Leukocytosis, Fever Patient Disposition: Being Evaluated by Hospitalist Forms Stand Alone Forms: Call Back Authorization, My [facility] Prescriptions Prescriptions: No Action Taltz Syringe 80 mg/mL Syringe 80 mg SUBCUT MONTHLY RF: 0 Referrals Referrals: Kaylee Solorzano [Primary Care Provider] - Discharge Problem: Leukocytosis Qualifiers: Leukocytosis type: unspecified Qualified Code(s): D72.829 - Elevated white blood cell count, unspecified Fever Qualifiers: Fever type: unspecified Qualified Code(s): R50.9 - Fever, unspecified The scribe's documentation has been prepared under my direction and personally reviewed by me in its entirety. I confirm that the note above accurately reflects all work, treatment, procedures, and medical decision making performed by me.
[2018-06-11] MEDS ORDERED: MoRPHine SULFATE 2 MG/ML CARP IV PRN (20:59)
[2018-06-11] MEDS: POTASSIUM CHLORIDE 40 MEQ in SODIUM CHLORIDE 0.9% 1000ML 1,000 ML IV SCH (22:18)
[2018-06-11] MEDS: ONDANSETRON INJ 2 MG/ML 2 ML VIAL IV PRN (22:19)
[2018-06-12] MEDS: ACETAMINOPHEN 325 MG TAB PO PRN ×4 (03:18→20:04)
[2018-06-12] MEDS: POTASSIUM CHLORIDE 40 MEQ in SODIUM CHLORIDE 0.9% 1000ML 1,000 ML IV SCH ×2 (05:57→13:37)
[2018-06-12 06:24] LABS: Basophils # (auto) 0.02 K/uL (0-0.2); Basophils % (auto) 0.2 %; Eosinophils # (auto) 0.12 K/uL (0-0.5); Eosinophils % (auto) 1.1 %; Hematocrit (blood only) 29.2 % (37-47); Hemoglobin 9.6 g/dL (12.0-16.0); Immature Granulocytes # (auto) 0.03 K/uL (0.00-0.02); Immature Granulocytes % (auto) 0.3 %; Lymphocytes # (auto) 1.03 K/uL (1.2-3.4); Lymphocytes % (auto) 9.5 %; Mean Corpuscular Hgb Conc 32.9 g/dL (32-36); Mean Corpuscular Volume 87.7 fL (80-100); Mean Platelet Volume 9.1 fL (7.4-10.4); Monocytes # (auto) 0.89 K/uL (0.11-0.59); Monocytes % (auto) 8.2 %; Neutrophils # (auto) 8.72 K/uL (1.4-6.5); Neutrophils % (auto) 80.7 %; Platelet Count 216 K/uL (130-400); RDW Standard Deviation 45.2 fL (36.4-46.3); Red Blood Count 3.33 M/uL (4.2-5.4); White Blood Count 10.81 K/uL (4.8-10.8)
[2018-06-12 06:45] LABS: BUN Creatinine Ratio 8.8 (10-20); Calcium 7.9 mg/dl (8.5-10.1); Creatinine Clr Calc Pharmacy 176.7 ml/min; Est GFR (African American) 145.3; Est GFR (Non-African American) 125.3; Potassium 3.5 mmol/L (3.5-5.1)
--- NOTE | 2018-06-12 12:15 | History & Physical Report ---
Date of Service June 12, 2018 Assessment & Plan (1) Colitis: symptoms x 9 days now persistent generalized abdominal pain, diarrhea, no solid stools for 9 days trace blood seen one time pancolitis seen on CT of the Abd/pelvis, Leukocytosis no vomiting has family history of diverticulitis but no inflammatory bowel disease no one else sick she says that due to her Taltz treatment, she tends to experience illnesses more intense, immune suppressed feeling better after fluids but still with pain differential would be IBD, infectious colitis, post infectious IBS C diff negative will continue on clears and continue IVF per Dr. oCpeland, will treat with Cipro 400mg IV BID since she is immune suppressed plan for flex sig on Thursday (2) Leukocytosis: improved, likely represents a bacterial infection will treat colitis with Cipro flex sig on Thursday' repeat CBC tomorrow (3) Fever: likely an infectious colitis with the fever treat with Cipro IV follow for fever to resolve (4) Psoriasis: Taltz (ixekizumab) can cause immune supression skin is clear, well treated (5) Celiac disease: gluten free diet (6) Normal anion gap metabolic acidosis: due to ongoing diarrhea should improve with treatment of disease (7) Hypokalemia: resolved with IV replacements History of Present Illness Chief Complaint: my belly has been hurting for a week Primary Care Provider: Kaylee Solorzano 37 yo female with history of celiac disease treated with gluten free diet as well as psoriasis treated with Taltz treatment. Presented to the ED c/o 8 days of abdominal pain, diarrhea, and then fevers. The pain has been constant for 9 days. Nothing makes it better. She says that the pain gets worse prior to having a bowel movement and then she feels better after moving them. Mild nausea but no vomiting. She has never had a period of loose stools like this. She has a decreased appetite. She has never seen any blood in her stool. She has no history of IBD, no IBS. No one else sick around her to suggest acute viral illness. No family history of IBD. She admits that when she gets sick her symptoms are more intense. She had the flu for almost two weeks due to taking the Taltz treatment. She felt a little better with IV fluids. Reviewed labs. Personally reviewed CT which shows pancolitis. Discussed possible diagnoses with patient and her family. Medical history: psoriasis, Celiac disease Surgical history: C section Family history: mother has diverticulitis, no one has history of IBD Allergies Allergy/AdvReac Type Severity Reaction Status Date / Time gluten Allergy Unknown GLUTEN Verified 06/11/18 17:13 INTOLERANCE-ABDOMINAL CRAMPING,FLU LIKE SYMPTOMS hydrocodone AdvReac Unknown NAUSEA AND Verified 06/11/18 17:13 VOMITING Home Medications Home Medications Medication Instructions Recorded Confirmed Type ixekizumab [Taltz Syringe] 80 mg SUBCUT MONTHLY 06/11/18 06/11/18 History Past Med/Surg History Surgical History History of section Social History Preferred Language: Montserratian Communication Ability: Effective 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 Beliefs That Will Affect Care: None Current Living Situation: Spouse and Family current occupational status: employed Other Information That Helps Us Care for You: No Feels Safe at Home: Yes Safety Concerns: Feels Safe At This Time Smoking Status: Never smoker Hx Alcohol Use: No Hx Substance Use: No Review of Systems Review of Systems: All systems reviewed & are unremarkable except as noted in HPI & below Constitutional: + fatigue and + weakness Respiratory: no cough Cardiovascular: no chest pain, no dyspnea and no palpitations Gastrointestinal: + abdominal pain, + nausea and + diarrhea/loose stools; no vomiting and no constipation Genitourinary: + dysuria, + difficulty urinating and + urinary hesitancy Physical Exam Constitutional: WD/WN, vitals as above Eyes: PERRL, conjunctivae normal, anicteric sclerae ENMT: external ear and nose normal, oropharynx normal Neck: trachea midline, no thyromegaly Respiratory: normal respiratory effort, lungs clear to auscultation Cardiovascular: RRR, no murmur, no edema Gastrointestinal (Abdomen): Inspection/Auscultation: abdomen normal to inspection; abdomen not distended Percussion/Palpation: + abdomen tender (to deep palpation in area of colon) and abdomen soft; no abdominal mass Musculoskeletal: no cyanosis or clubbing, extremities motor strength 5/5 Skin: no rashes, warm and dry Neurologic: patellar DTR's 2+ bilat, sensation intact and PERRL, EOMI, accommodation nl, no face palsy, no dysarthria Psychiatric: A+Ox3, euthymic affect Lymphatic: no cervical or axillary lymphadenopathy Results & Data Vital Signs (Past 12 Hours) Vital Signs Temp Pulse Pulse Resp BP Pulse Ox 06/12/18 11:53 37.2 C 98 H 16 103/70 100 06/12/18 08:45 38 C H 06/12/18 06:50 37.2 C 101 H 15 95/65 L 98 06/12/18 03:57 37.6 C H 105 H 18 96/64 L 95 Laboratory Results Laboratory Results - last 24 hr 06/12/18 06/12/18 05:26 05:26 WBC 10.81 H RBC 3.33 L Hgb 9.6 L D Hct 29.2 L MCV 87.7 MCH 28.8 MCHC 32.9 RDW Std Deviation 45.2 RDW Coeff of Gita 14.0 Plt Count 216 MPV 9.1 Immature Gran % (Auto) 0.3 Neut % (Auto) 80.7 Lymph % (Auto) 9.5 [place] % (Auto) 8.2 Eos % (Auto) 1.1 Baso % (Auto) 0.2 Immature Gran # (Auto) 0.03 H Neut # (Auto) 8.72 H Lymph # (Auto) 1.03 L [place] # (Auto) 0.89 H Eos # (Auto) 0.12 Baso # (Auto) 0.02 Sodium 141 D Potassium 3.5 D Chloride 110 H Carbon Dioxide 19 L Anion Gap 11.0 BUN 4 L Creatinine 0.49 L Est Cr Clr Drug Dosing 176.7 Est GFR ( Amer) 145.3 Est GFR (Non-Af Amer) 125.3 BUN/Creatinine Ratio 8.8 L Glucose 74 Calcium 7.9 L D Diagnostic Findings ABDOMEN AND PELVIS CT WITH IV CONTRAST COMPARISON STUDY: None. 1. Nonspecific pancolitis. This likely represents an infectious colitis or inflammatory bowel disease. 2. No evidence for bowel obstruction. 3. Normal appendix. 4. Mildly enlarged mesenteric lymph nodes. These may be reactive to the colitis. Medications Administered Laboratory Results - last 24 hr 06/12/18 06/12/18 05:26 05:26 WBC 10.81 H RBC 3.33 L Hgb 9.6 L D Hct 29.2 L MCV 87.7 MCH 28.8 MCHC 32.9 RDW Std Deviation 45.2 RDW Coeff of Gita 14.0 Plt Count 216 MPV 9.1 Immature Gran % (Auto) 0.3 Neut % (Auto) 80.7 Lymph % (Auto) 9.5 [place] % (Auto) 8.2 Eos % (Auto) 1.1 Baso % (Auto) 0.2 Immature Gran # (Auto) 0.03 H Neut # (Auto) 8.72 H Lymph # (Auto) 1.03 L [place] # (Auto) 0.89 H Eos # (Auto) 0.12 Baso # (Auto) 0.02 Sodium 141 D Potassium 3.5 D Chloride 110 H Carbon Dioxide 19 L Anion Gap 11.0 BUN 4 L Creatinine 0.49 L Est Cr Clr Drug Dosing 176.7 Est GFR ( Amer) 145.3 Est GFR (Non-Af Amer) 125.3 BUN/Creatinine Ratio 8.8 L Glucose 74 Calcium 7.9 L D Code Status & VTE Plan Code Status full code VTE Prophylaxis Plan VTE Prophylaxis will be ordered: Yes (1) Fever Fever type: unspecified Qualified Code(s): R50.9 - Fever, unspecified (2) Leukocytosis Leukocytosis type: unspecified Qualified Code(s): D72.829 - Elevated white blood cell count, unspecified
[2018-06-12] MEDS: ONDANSETRON INJ 2 MG/ML 2 ML VIAL IV PRN ×2 (14:23→20:05)
[2018-06-12] MEDS: CIPROFLOXACIN 400 MG/200 ML BAG IV SCH (16:24)
--- NOTE | 2018-06-12 16:39 | Consultation Report ---
DATE OF CONSULTATION: 06/12/2018 REASON FOR EVALUATION: Colitis. HISTORY OF PRESENT ILLNESS: The patient is a 37-year-old with an 8-day history of acute-onset diffuse abdominal crampy pain, fever, and diarrhea. She eventually presented to the Emergency Room last night and was noted to have a white count of over 19,000 and was febrile. Stool for C. diff was negative and stool for C and S is pending. CT scan showed pancolitis consistent with IBD or infection. Of note is that no one around has been sick with similar illness. She has had no nausea or vomiting. She did see blood in her stool at one point, but it is no longer there. The patient does take Taltz for psoriasis, which causes her to be somewhat immunosuppressed. PAST MEDICAL HISTORY: Remarkable for 2 C-sections. She has psoriasis and gluten sensitivity without a diagnosis of celiac disease. MEDICATIONS: Taltz 80 mg subcutaneously once a month. ALLERGIES: HYDROCODONE AND GLUTEN. FAMILY HISTORY: Noncontributory. SOCIAL HISTORY: The patient is . She works outside the home, does not smoke, does not use alcohol. REVIEW OF SYSTEMS: Remarkable for some joint pains. Remainder is negative. PHYSICAL EXAMINATION: GENERAL: The patient appears in no acute distress. VITAL SIGNS: Temperature is 37.8. ABDOMEN: Shows a low transverse scar. Bowel sounds are present. There is mild tenderness throughout the abdomen. No hepatosplenomegaly. EXTREMITIES: Showed no clubbing, cyanosis, or edema. NEUROLOGIC: Grossly normal. IMPRESSION AND PLAN: The patient has acute onset of diarrhea, fever and abdominal pain with a CT suggesting colitis, with a white count of 19.29. This all points to an acute infectious illness, most likely bacterial. Because she is immunosuppressed, I plan on treating her empirically while her stools are pending with Cipro 400 mg IV b.i.d. and we will plan on doing a flexible sigmoidoscopy to look at the colonic lining on Thursday, 06/14.
[2018-06-12] MEDS: PROMETHAZINE HCL 12.5 MG in SODIUM CHLORIDE 0.9% 50 ML IV PRN (22:54)
[2018-06-13] MEDS: POTASSIUM CHLORIDE 40 MEQ in SODIUM CHLORIDE 0.9% 1000ML 1,000 ML IV SCH ×2 (00:14→10:20)
[2018-06-13] MEDS: ONDANSETRON INJ 2 MG/ML 2 ML VIAL IV PRN ×2 (02:01→16:27)
[2018-06-13] MEDS: CIPROFLOXACIN 400 MG/200 ML BAG IV SCH ×2 (04:01→16:22)
[2018-06-13 06:12] LABS: Hematocrit (blood only) 30.3 % (37-47); Hemoglobin 9.9 g/dL (12.0-16.0); Mean Corpuscular Hgb Conc 32.7 g/dL (32-36); Mean Corpuscular Volume 87.3 fL (80-100); Mean Platelet Volume 9.1 fL (7.4-10.4); Platelet Count 259 K/uL (130-400); RDW Coefficient of Variation 14.2 % (11.5-14.5); RDW Standard Deviation 45.5 fL (36.4-46.3); Red Blood Count 3.47 M/uL (4.2-5.4); White Blood Count 15.88 K/uL (4.8-10.8)
[2018-06-13 06:38] LABS: Basophils # (auto) 0.03 K/uL (0-0.2); Basophils % (auto) 0.2 %; Dohle Bodies 1+; Eosinophils # (auto) 0.06 K/uL (0-0.5); Eosinophils % (auto) 0.4 %; Immature Granulocytes # (auto) 0.08 K/uL (0.00-0.02); Immature Granulocytes % (auto) 0.5 %; Lymphocytes # (auto) 1.17 K/uL (1.2-3.4); Lymphocytes % (auto) 7.4 %; Monocytes % (auto) 8.2 %; Neutrophils # (auto) 13.24 K/uL (1.4-6.5); Neutrophils % (auto) 83.3 %
[2018-06-13 06:52] LABS: BUN Creatinine Ratio 2.7 (10-20); Calcium 8.2 mg/dl (8.5-10.1); Creatinine Clr Calc Pharmacy 171.3 ml/min; Est GFR (African American) 143.4; Est GFR (Non-African American) 123.7; Potassium 3.6 mmol/L (3.5-5.1)
[2018-06-13] MEDS: PROMETHAZINE HCL 12.5 MG in SODIUM CHLORIDE 0.9% 50 ML IV PRN (07:55)
[2018-06-13] MEDS ORDERED: CALCIUM GLUCONATE 10% 10 ML VIAL IV STA (08:06)
[2018-06-13] MEDS ORDERED: CALCIUM GLUCONATE 10% 1,000 MG in SODIUM CHLORIDE 0.9% 50 ML IV STA (08:08)
--- NOTE | 2018-06-13 14:44 | Hospitalist Progress Note ---
Date of Service June 13, 2018 Assessment & Plan (1) Colitis: Was having symptoms for 8 days prior to coming in. Persistent generalized abdominal pain, diarrhea, no solid stools for 9 days. Trace blood seen one time. - Pancolitis seen on CT of the Abd/pelvis - [place] to be bacterial per GI - Started on cipro - C. diff & stool culture negative so far - As of 06/13, she feels she is improving. - Low residue diet - Plan for flex sig tomorrow with Dr. Copeland (2) Leukocytosis: Likely represents a bacterial GI infection. - Plan as above (3) Psoriasis: On Taltz (ixekizumab) (IL-17 inhibitor) can cause immunosupression. Skin is clear. - No inpatient needs (4) Celiac disease: Gluten free diet (5) Normal anion gap metabolic acidosis: Due to ongoing diarrhea. - Resolved (6) DVT prophylaxis: Low risk - SCDs Subjective Feeling better today. Less abdominal pain. Nausea is controlled with our current anti-nausea medications. Still having diarrhea. Reports no fevers/chills, chest pain, shortness of breath. Review of Systems Constitutional: + fatigue and + weakness Gastrointestinal: + abdominal pain, + nausea and + diarrhea/loose stools; no vomiting and no constipation Genitourinary: + dysuria, + difficulty urinating and + urinary hesitancy Physical Exam Constitutional: WD/WN, vitals as above Eyes: PERRL, conjunctivae normal, anicteric sclerae ENMT: external ear and nose normal, oropharynx normal Neck: trachea midline, no thyromegaly Respiratory: normal respiratory effort, lungs clear to auscultation Cardiovascular: RRR, no murmur, no edema Gastrointestinal (Abdomen): Inspection/Auscultation: abdomen normal to inspection; abdomen not distended Percussion/Palpation: + abdomen tender (to deep palpation in area of colon) and abdomen soft; no abdominal mass Musculoskeletal: no cyanosis or clubbing, extremities motor strength 5/5 Skin: no rashes, warm and dry Neurologic: patellar DTR's 2+ bilat, sensation intact and PERRL, EOMI, accommodation nl, no face palsy, no dysarthria Psychiatric: A+Ox3, euthymic affect Lymphatic: no cervical or axillary lymphadenopathy Results & Data Vital Signs (Past 12 Hours) Vital Signs Temp Pulse Resp BP Pulse Ox 06/13/18 10:57 36.9 C 97 H 18 97/68 L 99 06/13/18 07:05 36.8 C 92 H 18 93/66 L 97 06/13/18 03:31 37.4 C 99 H 17 97/67 L 95 (1) Leukocytosis Leukocytosis type: unspecified Qualified Code(s): D72.829 - Elevated white blood cell count, unspecified
[2018-06-13] MEDS: ACETAMINOPHEN 325 MG TAB PO PRN (22:14)
[2018-06-14] MEDS: PROMETHAZINE HCL 12.5 MG in SODIUM CHLORIDE 0.9% 50 ML IV PRN (03:06)
[2018-06-14] MEDS: ACETAMINOPHEN 325 MG TAB PO PRN ×2 (04:32→20:27)
[2018-06-14] MEDS: CIPROFLOXACIN 400 MG/200 ML BAG IV SCH ×3 (04:32→17:47)
[2018-06-14 07:36] LABS: Hemoglobin 9.8 g/dL (12.0-16.0); Mean Corpuscular Hgb Conc 33.8 g/dL (32-36); Mean Corpuscular Volume 84.3 fL (80-100); Mean Platelet Volume 8.7 fL (7.4-10.4); Platelet Count 268 K/uL (130-400); RDW Standard Deviation 43.7 fL (36.4-46.3); Red Blood Count 3.44 M/uL (4.2-5.4); White Blood Count 12.16 K/uL (4.8-10.8)
[2018-06-14] MEDS: ONDANSETRON INJ 2 MG/ML 2 ML VIAL IV PRN ×2 (07:47→20:28)
[2018-06-14 08:06] LABS: Basophils # (auto) 0.03 K/uL (0-0.2); Basophils % (auto) 0.2 %; Eosinophils # (auto) 0.08 K/uL (0-0.5); Eosinophils % (auto) 0.7 %; Immature Granulocytes # (auto) 0.07 K/uL (0.00-0.02); Immature Granulocytes % (auto) 0.6 %; Lymphocytes # (auto) 0.82 K/uL (1.2-3.4); Lymphocytes % (auto) 6.7 %; Monocytes # (auto) 1.06 K/uL (0.11-0.59); Monocytes % (auto) 8.7 %; Neutrophils % (auto) 83.1 %
[2018-06-14 08:10] LABS: Calcium 8.1 mg/dl (8.5-10.1); Est GFR (African American) 142.5; Est GFR (Non-African American) 122.9; Potassium 3.1 mmol/L (3.5-5.1)
[2018-06-14] MEDS ORDERED: ACETAMINOPHEN 65 ML IV ONE (09:00)
[2018-06-14] MEDS ORDERED: SOD PHOSPHATE/SOD BIPHOSPHATE ENEMA 132 ML BTL PR SCH (12:00)
[2018-06-14] MEDS ORDERED: PROPOFOL IV EMULSION 10 MG/ML 20 ML VIAL IV ONE (12:30)
--- NOTE | 2018-06-14 12:32 | Anesthesiology Consultation ---
Date of Service June 14, 2018 Assessment & Plan Chart Review Chart Review: Acceptable Risk for Surgery and Patient NOT seen in Pre Admission Testing Consults Requested none ASA ASA2 Proposed Anesthesia Anesthesia Type: MAC Risk / Benefits Reviewed With: PT / POA / Parent / Guardian, Accepts Plan and Informed Consent Obtained NPO Date Last Intake of Fluids: 06/13/18 Time Last Intake of Fluids: 23:00 Last Intake of Fluids Comment: sip with Tylenol @ 0430 Date Last Intake of Solids: 06/13/18 Time Last Intake of Solids: 18:00 History Surgery Operation Date: 06/14/18 08:30 Proposed Procedures p Flexible Sigmoidoscopy Dr Dinorah Copeland Height/Weight Height: 1.71 m Weight: 83.8 kg Allergies Allergy/AdvReac Type Severity Reaction Status Date / Time gluten Allergy Unknown GLUTEN Verified 06/11/18 17:13 INTOLERANCE-ABDOMINAL CRAMPING,FLU LIKE SYMPTOMS hydrocodone AdvReac Unknown NAUSEA AND Verified 06/11/18 17:13 VOMITING Medications Home Medications Medication Instructions Recorded Confirmed Last Taken ixekizumab [Taltz Syringe] 80 mg SUBCUT MONTHLY 06/11/18 06/11/18 Unknown Active Medications Generic Name Dose Route Start Last Admin Trade Name Freq PRN Reason Stop Dose Admin Acetaminophen 650 mg 06/11/18 20:59 06/14/18 04:32 Tylenol PO 07/11/18 20:58 650 mg Q4H PRN Administration Pain or Fever Ciprofloxacin 400 mg in 200 mls @ 100 mls/hr 06/12/18 16:00 06/14/18 06:59 Cipro IV 06/22/18 15:59 Infused Q12H MARIA GUADALUPE Infusion Protocol Promethazine HCl 12.5 mg/ 50.5 mls @ 202 mls/hr 06/12/18 17:59 06/14/18 03:28 Sodium Chloride IV 07/12/18 17:58 Infused Q6H PRN Infusion Nausea And Vomiting Ondansetron HCl 4 mg 06/11/18 20:59 06/14/18 07:47 Zofran IV 07/11/18 20:58 4 mg Q6H PRN Administration Nausea Sodium Biphosphate/Sodium Phosphate 132 ml 06/14/18 12:00 06/14/18 12:25 Fleet Enema DC 06/14/18 18:00 132 ml Mo@1200 MARIA GUADALUPE Administration Past Medical History Medical History Celiac disease Psoriasis Colitis (Acute) Leukocytosis (Acute) Past Surgical History Surgical History History of section S/P X2 S/P wisdom tooth extraction Past Anesthesia History No Hx of Anesthesia Complications and No Family Hx of Anesthesia Complications History of PONV No Motion Sickness Screening History of Motion Sickness: Yes (On occasion) Social History Smoking Status: Never smoker Do You Dip or Chew Tobacco: No Hx Alcohol Use: Yes Alcohol type: wine alcohol intake frequency: a few times a month Hx Substance Use: No Exercise / Class Metabolic Activity II 4-5 Yardwork/Stairs/Walk up hill Physical Exam Vital Signs Last Vital Signs Temp 37.2 C 06/14/18 08:00 Pulse 109 H 06/14/18 08:00 Resp 18 06/14/18 08:00 BP 108/74 06/14/18 08:00 Pulse Ox 94 06/14/18 08:00 ENMT Mouth: no TMJ abnormality and no TMJ clicking Thyromental Distance: > or= 3.5 Finger Breadths Mallampati Class: II Neck normal visual inspection; neck extension not limited Respiratory Auscultation: lungs clear to auscultation bilaterally Cardiovascular Rate/Rhythm: regular rate and regular rhythm Musculoskeletal Spine: normal cervical ROM and no pain with cervical ROM Psychiatric Orientation: alert and oriented x 3 Testing Laboratory Results 06/14/18 07:22 06/14/18 07:22 PT 11.9 Seconds (9.0-12.0) 06/11/18 16:31 INR 1.2 (0.9-1.1) H 06/11/18 16:31 Urine Color Dark Yellow 06/11/18 16:32 Urine Appearance Clear (Clear) 06/11/18 16:32 Urine pH 6.0 (4.5-7.5) 06/11/18 16:32 Ur Specific [place] 1.025 (1.000-1.030) 06/11/18 16:32 Urine Protein 2+ (Negative) H 06/11/18 16:32 Urine Glucose (UA) Negative (Negative) 06/11/18 16:32 Urine Ketones 4+ (Negative) H 06/11/18 16:32 Urine Nitrite Negative (Negative) 06/11/18 16:32 Ur Leukocyte Esterase Negative (Negative) 06/11/18 16:32 Urine WBC (Auto) 1-5 /hpf (0-5) 06/11/18 16:32 Urine RBC (Auto) 0-4 /hpf (0-4) 06/11/18 16:32 U Hyaline Cast (Auto) 5-10 /lpf (0-5) H 06/11/18 16:32 U Epithel Cells (Auto) >30 /lpf (0-5) H 06/11/18 16:32 Urine Bacteria (Auto) Negative (Negative) 06/11/18 16:32 06/11/18 16:32 Shiga Toxin Test - Final Stool Stool Culture - Final No Salmonella isolated, No Shigella isolated, No Campylobacter jejuni isolated.
--- NOTE | 2018-06-14 13:50 | History & Physical Report ---
Date of Service June 14, 2018 History of Present Illness Chief Complaint: Diarrhea Primary Care Provider: Kaylee Solorzano For flex sig Allergies Allergy/AdvReac Type Severity Reaction Status Date / Time gluten Allergy Unknown GLUTEN Verified 06/11/18 17:13 INTOLERANCE-ABDOMINAL CRAMPING,FLU LIKE SYMPTOMS hydrocodone AdvReac Unknown NAUSEA AND Verified 06/11/18 17:13 VOMITING Home Medications Home Medications Medication Instructions Recorded Confirmed Type ixekizumab [Taltz Syringe] 80 mg SUBCUT MONTHLY 06/11/18 06/11/18 History Past Med/Surg History Medical History Celiac disease Psoriasis Colitis (Acute) Leukocytosis (Acute) Surgical History History of section S/P X2 S/P wisdom tooth extraction Social History Preferred Language: Polish Communication Ability: Effective Cushion Padder Required: No Beliefs That Will Affect Care: None Current Living Situation: Spouse and Family current occupational status: employed Other Information That Helps Us Care for You: No Feels Safe at Home: Yes Safety Concerns: Feels Safe At This Time Smoking Status: Never smoker Do You Dip or Chew Tobacco: No Hx Alcohol Use: Yes Alcohol type: wine Hx Substance Use: No Physical Exam Vital Signs (Past 24 Hours): Last Vital Signs Temp 37.2 C 06/14/18 08:00 Pulse 109 H 06/14/18 08:00 Resp 18 06/14/18 08:00 BP 108/74 06/14/18 08:00 Pulse Ox 94 06/14/18 08:00 Constitutional: WD/WN, vitals as above well developed and well nourished Respiratory: normal respiratory effort Cardiovascular: Rate/Rhythm: regular rate and regular rhythm Gastrointestinal (Abdomen): Percussion/Palpation: + abdomen tender Code Status & VTE Plan VTE Prophylaxis Plan VTE Prophylaxis will be ordered: Yes
--- NOTE | 2018-06-14 14:49 | Anesthesiology Progress Note ---
Date of Service June 14, 2018 Anesthesia Post Procedure Vital Signs Vital Signs: Temp Pulse Resp BP Pulse Ox 06/14/18 14:44 94 H 18 101/64 97 06/14/18 14:29 91 H 18 90/60 L 96 06/14/18 14:14 91 H 18 78/46 L 97 06/14/18 13:43 37.1 C 110 H 18 100/69 98 06/14/18 08:00 37.2 C 109 H 18 108/74 94 06/13/18 22:23 37.4 C 102 H 18 97/62 L 98 Notes Mental Status: alert / awake / arousable Patient Amnestic to Procedure: Yes Nausea / Vomiting: adequately controlled Pain: adequately controlled Airway Patency, RR, SpO2: stable & adequate BP & HR: stable & adequate Hydration State: stable & adequate Anesthetic Complications: no major complications apparent
--- NOTE | 2018-06-14 14:50 | Progress Note ---
DATE: 06/14/2018 The patient presented for a flexible sigmoidoscopy today for her diarrhea, elevated white count and abnormal CT scan. Of note is that her stool culture and stool for C. diff were both negative. Under flexible sigmoidoscopy with sedation, the exam was carried to the splenic flexure. There was increased mucus present usually indicating an infection. She also had patchy erythema consistent with an infectious etiology. Biopsies were taken from these areas. IMPRESSION: The patient appears to have an infectious colitis and it may be taking her longer to recover because she is on immunosuppressive medications. At this point, I would continue a lactose free low fiber diet for the next week or two. She should take Cipro 500 b.i.d. for a total of 10 days and hopefully will recover as an outpatient. It will take her a little bit longer due to the immunosuppressive medication that she is taking.
[2018-06-14] MEDS: SODIUM CHLORIDE 0.9% 1000ML 1,000 ML IV SCH (14:58)
[2018-06-14] MEDS ORDERED: LACTATED RINGER'S 1,000 ML IV ONE (15:30)
--- NOTE | 2018-06-14 22:47 | Hospitalist Progress Note ---
Date of Service June 14, 2018 Assessment & Plan (1) Colitis: Was having symptoms for 8 days prior to coming in. Persistent generalized abdominal pain, diarrhea, no solid stools for 9 days. Trace blood seen one time. - Pancolitis seen on CT of the Abd/pelvis - [place] to be bacterial per GI - Started on cipro - C. diff & stool culture negative so far - As of 06/13, she feels she is improving. - Low residue diet - Patient had a flex sigmoidoscopy today. -Found inflammation in the sigmoidoscopy. -Recommend to continue on cipro; -will give IV fluid as patient BP is lower. (2) Leukocytosis: Likely represents a bacterial GI infection. - Plan as above (3) Psoriasis: On Taltz (ixekizumab) (IL-17 inhibitor) can cause immunosupression. Skin is clear. - No inpatient needs (4) Celiac disease: Gluten free diet (5) Normal anion gap metabolic acidosis: Due to ongoing diarrhea. - Resolved (6) DVT prophylaxis: Low risk - SCDs Spent 35 minutes in management of patient. Subjective Patient reports feeling well. She does not feel completely back to her baseline but she does feel better. She reports that her stools have not improved. Review of Systems Constitutional: no fever and no body aches Eyes: no blind spots Ear, Nose, Mouth, Throat: no ear pain and no tinnitus Respiratory: no cough Cardiovascular: no chest pain Gastrointestinal: no abdominal pain Musculoskeletal: no back pain and no loss of height Integumentary: no acne Neurologic: no gait abnormality and no falls Psychiatric: no behavioral changes Endocrine: no polydipsia Allergy / Immunological: no GI upset with certain foods Physical Exam Constitutional: WD/WN, vitals as above well developed Eyes: PERRL, conjunctivae normal, anicteric sclerae ENMT: external ear and nose normal, oropharynx normal Neck: trachea midline, no thyromegaly Respiratory: normal respiratory effort, lungs clear to auscultation Cardiovascular: RRR, no murmur, no edema Gastrointestinal (Abdomen): Inspection/Auscultation: abdomen normal to inspection Percussion/Palpation: abdomen soft; abdomen nontender hyperactive bowel sounds Musculoskeletal: no cyanosis or clubbing, extremities motor strength 5/5 Neurologic: awake Psychiatric: A+Ox3, euthymic affect Lymphatic: no cervical or axillary lymphadenopathy Results & Data Vital Signs (Past 12 Hours) Vital Signs Temp Pulse Resp BP Pulse Ox 06/14/18 15:22 37.0 C 93 H 18 93/65 L 99 06/14/18 14:44 94 H 18 101/64 97 06/14/18 14:29 91 H 18 90/60 L 96 06/14/18 14:14 91 H 18 78/46 L 97 06/14/18 13:43 37.1 C 110 H 18 100/69 98 (1) Leukocytosis Leukocytosis type: unspecified Qualified Code(s): D72.829 - Elevated white blood cell count, unspecified
[2018-06-15] MEDS: CIPROFLOXACIN 400 MG/200 ML BAG IV SCH ×2 (04:15→15:56)
[2018-06-15] MEDS: ACETAMINOPHEN 325 MG TAB PO PRN (07:43)
[2018-06-15 08:23] LABS: Basophils # (auto) 0.02 K/uL (0-0.2); Basophils % (auto) 0.2 %; Eosinophils % (auto) 0.9 %; Hematocrit (blood only) 30.4 % (37-47); Hemoglobin 10.2 g/dL (12.0-16.0); Immature Granulocytes # (auto) 0.04 K/uL (0.00-0.02); Immature Granulocytes % (auto) 0.4 %; Lymphocytes # (auto) 1.23 K/uL (1.2-3.4); Lymphocytes % (auto) 11.3 %; Mean Corpuscular Hgb Conc 33.6 g/dL (32-36); Mean Platelet Volume 8.6 fL (7.4-10.4); Monocytes # (auto) 0.82 K/uL (0.11-0.59); Monocytes % (auto) 7.6 %; Neutrophils # (auto) 8.63 K/uL (1.4-6.5); Neutrophils % (auto) 79.6 %; Platelet Count 321 K/uL (130-400); RDW Standard Deviation 42.7 fL (36.4-46.3); Red Blood Count 3.62 M/uL (4.2-5.4); White Blood Count 10.84 K/uL (4.8-10.8)
[2018-06-15 09:01] LABS: BUN Creatinine Ratio 2.6 (10-20); Calcium 8.5 mg/dl (8.5-10.1); Creatinine Clr Calc Pharmacy 143.2 ml/min; Est GFR (African American) 135.2; Est GFR (Non-African American) 116.6
[2018-06-15] MEDS: POTASSIUM CHLORIDE 20 MEQ TABCR PO SCH ×3 (09:23→20:28)
[2018-06-15] MEDS ORDERED: LACTATED RINGER'S 1,000 ML IV ONE (10:45)
[2018-06-15] MEDS: SODIUM CHLORIDE 0.9% 1000ML 1,000 ML IV SCH (12:55)
--- NOTE | 2018-06-15 15:59 | Gastroenterology Progress Note ---
Date of Service June 15, 2018 Assessment & Plan (1) Colitis: abd pain improved but persistent diarrhea so recommend gettting that more under control prior to DC to avoid dehydration. No cdiff so will use Lomotil 2 tabs 4 times daily. FS showed some nonspecific inflammation. Subjective cc f/u abd pain and diarrhea HPI Pt states her muscle aches and abd pain overall improved but still diarrhea persists with 9 bms today so far. Review of Systems Respiratory: no dyspnea Cardiovascular: no chest pain Physical Exam Constitutional: WD/WN, vitals as above Respiratory: normal respiratory effort, lungs clear to auscultation Cardiovascular: RRR, no murmur, no edema Gastrointestinal (Abdomen): normal bowel sounds, soft, nontender, no hepatosplenomegaly Skin: normal turgor; no induration Psychiatric: A+Ox3, euthymic affect Results & Data Vital Signs (Past 12 Hours) Vital Signs Temp Pulse Resp BP Pulse Ox 06/15/18 07:05 60 90/60 L 06/15/18 07:00 37.1 C 97 H 18 85/56 L 98
[2018-06-15] MEDS: DIPHENOXYLATE/ATROPINE 2.5/0.025MG TAB PO SCH ×2 (17:11→21:15)
--- NOTE | 2018-06-15 22:12 | Hospitalist Progress Note ---
Date of Service June 15, 2018 Assessment & Plan (1) Colitis: Was having symptoms for 8 days prior to coming in. Persistent generalized abdominal pain, diarrhea, no solid stools for 9 days. Trace blood seen one time. - Pancolitis seen on CT of the Abd/pelvis - [place] to be bacterial per GI - Started on cipro - C. diff & stool culture negative so far - As of 06/13, she feels she is improving. - Low residue diet - Patient had a flex sigmoidoscopy on (06/14) -Found inflammation in the sigmoidoscopy. -Recommend to continue on cipro; -will give IV fluid as patient BP is lower. Patient continues to have diarrhea and BP is low. Will need to control diarrhea. This will delay discharge for another day. Once HR and Blood pressure improve, patient can be discharged. (2) Leukocytosis: Likely represents a bacterial GI infection. - Plan as above (3) Psoriasis: On Taltz (ixekizumab) (IL-17 inhibitor) can cause immunosupression. Skin is clear. - No inpatient needs (4) Celiac disease: Gluten free diet (5) Normal anion gap metabolic acidosis: Due to ongoing diarrhea. - Resolved (6) DVT prophylaxis: Low risk - SCDs Spent 25 minutes in management of patient. Subjective 37 yo female reports she is feeling better. She reports having loose stools and has been going to the bathroom multiple times throughout the day. She stated she has been going about 5 times in past 5 hours. Review of Systems Review of Systems: All systems reviewed & are unremarkable except as noted in HPI & below Physical Exam Constitutional: WD/WN, vitals as above well developed Eyes: PERRL, conjunctivae normal, anicteric sclerae ENMT: external ear and nose normal, oropharynx normal Neck: trachea midline, no thyromegaly Respiratory: normal respiratory effort, lungs clear to auscultation Cardiovascular: RRR, no murmur, no edema Gastrointestinal (Abdomen): Inspection/Auscultation: abdomen normal to inspection Percussion/Palpation: abdomen soft; abdomen nontender Musculoskeletal: no cyanosis or clubbing, extremities motor strength 5/5 Neurologic: awake Psychiatric: A+Ox3, euthymic affect Lymphatic: no cervical or axillary lymphadenopathy Results & Data Vital Signs (Past 12 Hours) Vital Signs Temp Pulse Resp BP Pulse Ox 06/15/18 15:59 36.4 C L 104 H 18 104/74 95 (1) Leukocytosis Leukocytosis type: unspecified Qualified Code(s): D72.829 - Elevated white blood cell count, unspecified
[2018-06-16] MEDS: DIPHENOXYLATE/ATROPINE 2.5/0.025MG TAB PO SCH ×5 (00:47→17:34)
[2018-06-16] MEDS: ACETAMINOPHEN 325 MG TAB PO PRN ×3 (02:49→17:48)
[2018-06-16] MEDS: CIPROFLOXACIN 400 MG/200 ML BAG IV SCH ×2 (03:04→15:54)
[2018-06-16 07:16] LABS: Basophils # (auto) 0.02 K/uL (0-0.2); Basophils % (auto) 0.2 %; Eosinophils # (auto) 0.12 K/uL (0-0.5); Eosinophils % (auto) 1.1 %; Hematocrit (blood only) 31.1 % (37-47); Hemoglobin 10.4 g/dL (12.0-16.0); Immature Granulocytes # (auto) 0.04 K/uL (0.00-0.02); Immature Granulocytes % (auto) 0.4 %; Lymphocytes # (auto) 1.37 K/uL (1.2-3.4); Lymphocytes % (auto) 12.5 %; Mean Corpuscular Hgb Conc 33.4 g/dL (32-36); Mean Corpuscular Volume 86.1 fL (80-100); Mean Platelet Volume 8.6 fL (7.4-10.4); Monocytes # (auto) 0.96 K/uL (0.11-0.59); Monocytes % (auto) 8.8 %; Neutrophils # (auto) 8.44 K/uL (1.4-6.5); Platelet Count 329 K/uL (130-400); RDW Coefficient of Variation 14.2 % (11.5-14.5); RDW Standard Deviation 45.2 fL (36.4-46.3); Red Blood Count 3.61 M/uL (4.2-5.4); White Blood Count 10.95 K/uL (4.8-10.8)
[2018-06-16 07:51] LABS: Albumin Level 2.1 gm/dl (3.4-5.0); BUN Creatinine Ratio 2.5 (10-20); Calcium 8.9 mg/dl (8.5-10.1); Creatinine Clr Calc Pharmacy 128.5 ml/min; Est GFR (African American) 130.4; Est GFR (Non-African American) 112.5; Potassium 4.8 mmol/L (3.5-5.1)
[2018-06-16 07:55] LABS: Albumin Globulin Ratio 0.4 (0.9-2); Bilirubin,Total 0.3 mg/dl (0.2-1); Globulin 4.9 gm/dl (2.5-4.0)
[2018-06-16] MEDS: POTASSIUM CHLORIDE 20 MEQ TABCR PO SCH (08:15)
--- NOTE | 2018-06-16 15:35 | GI REPORT ---
Patient Name: Venus Fernandez Procedure Date: 06/14/2018 1:32 PM Date of : 1980 Admit Type: Inpatient Age: 37 Gender: Female Attending MD: Vadim Copeland MD Procedure: Flexible Sigmoidoscopy Providers: Vadim Copeland MD Referring MD: Ryan Pillai Indications: Clinically significant diarrhea of unexplained origin, Abnormal CT of the GI tract Medicines: Propofol total dose 200 mg IV Complications: No immediate complications. Estimated Blood Loss: Estimated blood loss: none. Procedure: Pre-Anesthesia Assessment: - Prior to the procedure, a History and Physical was performed, and patient medications, allergies and sensitivities were reviewed. The patient's tolerance of previous anesthesia was reviewed. - The risks and benefits of the procedure and the sedation options and risks were discussed with the patient. All questions were answered and informed consent was obtained. After obtaining informed consent, the endoscope was passed under direct vision. Throughout the procedure, the patient's blood pressure, pulse, and oxygen saturations were monitored continuously. The scope was introduced through the anus and advanced to the splenic flexure. The colonoscopy was performed without difficulty. The patient tolerated the procedure well. The quality of the bowel preparation was good. After obtaining informed consent, the endoscope was passed under direct vision. Throughout the procedure, the patient's blood pressure, pulse, and oxygen saturations were monitored continuously. Findings: A patchy area of mildly erythematous mucosa was found in the rectum. Biopsies were taken with a cold forceps in the sigmoid colon and in the descending colon for histology. Impression: - Erythematous mucosa in the rectum. - Biopsies were taken with a cold forceps for histology in the sigmoid colon and in the descending colon. Recommendation: - Return patient to [facility] for ongoing care. - Await pathology results. Vadim Copeland MD 06/16/2018 3:34:03 PM Note Initiated On: 06/14/2018 1:32 PM Number of Addenda: 0 I attest to the content of the Intraoperative Record and orders documented therein, exceptions below {[id number]}
--- NOTE | 2018-06-16 17:10 | Progress Note ---
DATE: 06/16/2018 SUBJECTIVE: The patient has had a significant improvement with Lomotil. She has had only 1 bowel movement last night and 1 today. She has taken 3 Lomotil today and feels a lot better. She is able to eat and her abdominal pain is significantly improved. Her white count is down to 10,000-11,000 range. PHYSICAL EXAMINATION: ABDOMEN: Soft and nontender. VITAL SIGNS: She is afebrile. IMPRESSION AND PLAN: The patient has had significant gastroenteritis, probably viral as her stool cultures and colonic biopsies were negative despite seeing some erythema, patchy areas in the colon. This is most likely viral and is probably more severe because she has been taking immunosuppressive medication for her psoriasis. The patient anticipates being discharged today and I recommend she stay on a bland low fiber diet without lactose for the next week or two. She can use Lomotil as needed for loose stools, take Tylenol for pain, stay well hydrated. I would not resume Taltz until conferring with her customer support consultant, Dr. Hu as she may want to switch to a different medication because this is a second infection that she has had while on Taltz including influenza in the winter.
[2018-06-16] MEDS: SODIUM CHLORIDE 0.9% 1000ML 1,000 ML IV SCH (17:34)
[2018-06-16] MEDS ORDERED: CIPROFLOXACIN 500 MG TAB PO ONE (21:00)
[2018-06-17] MEDS ORDERED: CIPROFLOXACIN 500 MG TAB PO SCH (09:00)
--- NOTE | 2018-06-23 11:45 | Discharge Summary ---
Date of Service June 16, 2018 Admission HPI Per Admitting Provider 37 yo female with history of celiac disease treated with gluten free diet as well as psoriasis treated with Taltz treatment. Presented to the ED c/o 8 days of abdominal pain, diarrhea, and then fevers. The pain has been constant for 9 days. Nothing makes it better. She says that the pain gets worse prior to having a bowel movement and then she feels better after moving them. Mild nausea but no vomiting. She has never had a period of loose stools like this. She has a decreased appetite. She has never seen any blood in her stool. She has no history of IBD, no IBS. No one else sick around her to suggest acute viral illness. No family history of IBD. She admits that when she gets sick her symptoms are more intense. She had the flu for almost two weeks due to taking the Taltz treatment. She felt a little better with IV fluids. Reviewed labs. Personally reviewed CT which shows pancolitis. Discussed possible diagnoses with patient and her family. Principal Diagnosis Colitis Discharge Exam Constitutional: WD/WN, vitals as above well developed Eyes: PERRL, conjunctivae normal, anicteric sclerae ENMT: external ear and nose normal, oropharynx normal Neck: trachea midline, no thyromegaly Respiratory: normal respiratory effort, lungs clear to auscultation Cardiovascular: RRR, no murmur, no edema Gastrointestinal (Abdomen): Inspection/Auscultation: abdomen normal to inspection Percussion/Palpation: abdomen soft; abdomen nontender Musculoskeletal: no cyanosis or clubbing, extremities motor strength 5/5 Neurologic: awake Psychiatric: A+Ox3, euthymic affect Lymphatic: no cervical or axillary lymphadenopathy Discharge Data Allergies Allergy/AdvReac Type Severity Reaction Status Date / Time gluten Allergy Unknown GLUTEN Verified 06/11/18 17:13 INTOLERANCE-ABDOMINAL CRAMPING,FLU LIKE SYMPTOMS hydrocodone AdvReac Unknown NAUSEA AND Verified 06/11/18 17:13 VOMITING Consultations 06/11/18 18:46 ED Decision to Admit Stat 06/12/18 10:34 Consult Gastroenterology Routine Procedures Performed Operation Date: 06/14/18 08:30 Actual Procedures p Colonoscopy Biopsy Cytology - Vadim Copeland Ordered Studies 06/11/18 16:20 CT abd pelvis IV con only Stat Hospital Course (1) Colitis: Was having symptoms for 8 days prior to coming in. Persistent generalized abdominal pain, diarrhea, no solid stools for 9 days. Trace blood seen one time. - Pancolitis seen on CT of the Abd/pelvis - [place] to be bacterial per GI - Started on cipro - C. diff & stool culture negative so far - As of 06/13, she feels she is improving. - Low residue diet - Patient had a flex sigmoidoscopy on (06/14) - Found inflammation in the sigmoidoscopy. - Recommend to continue on cipro; - Due to the diarrhea, her BP remained low. - added atropine with diphenoxylate -Patient felt better the following day with normal vitals, -Anticipate slow recovery back to baseline. (2) Leukocytosis: Likely represents a bacterial GI infection. - Plan as above (3) Psoriasis: On Taltz (ixekizumab) (IL-17 inhibitor) can cause immunosupression. Skin is clear. - No inpatient needs (4) Celiac disease: Gluten free diet (5) Normal anion gap metabolic acidosis: Due to ongoing diarrhea. - Resolved (6) DVT prophylaxis: Low risk - SCDs Total Time Total Time Spent Total Time Spent (In Minutes): 32 Total Time Includes: Examination of the Patient, Discharge Planning and Medication Reconciliation Discharge Plan Discharge Items Patient Disposition: Home - Self-Care Reason For Visit: COLITIS,DEHYDRATION,HYPOKALEMIA Discharge Diagnosis: Colitis Discharge Goals: Decrease discomfort Activity: Resume your previous activity Non-emergency contact: Primary Care Provider Call non-emergency contact if: you have any medication questions Follow-up/Referrals: Kaylee Solorzano [Primary Care Provider] - 06/21/18 1:30 pm (Please, follow up with PHUONG Solorzano's associate, Dr. Lucia, on ThursdayJune 21 at 1:30 pm. *This office is located in [facility] at [address] [place] [address] in [place]. NOT THE [facility]. *If you need to change this appointment, call the office at [phone]. ) Diet: Gluten Free, Low Fiber and Lactose Intolerant Addtl Provider Instructions: Followup with PC in 1-2 weeks Prescriptions: New diphenoxylate-atropine 2.5-0.025 mg Tablet 2 tab PO Q6 Qty: 60 RF: 0 ciprofloxacin HCl [Cipro] 500 mg tablet 500 mg PO BID Qty: 15 RF: 0 ondansetron HCl [Zofran] 4 mg tablet 4 mg PO DAILY PRN (Reason: nausea and vomiting) Qty: 7 RF: 0 Continued Taltz Syringe 80 mg/mL Syringe 80 mg SUBCUT MONTHLY RF: 0 Stand-Alone Forms: Call Back Authorization, [facility] Discharge Orders: Discharge Order (Routine); Ordered 06/16/18 Ordered By: Navin Paulino Admission Data Admit Date/Time: 06/11/18 18:57 Attending Provider: Navin Paulino Admit Provider: Ryan Pillai Primary Care Provider: Kaylee Solorzano Other Providers: Vadim Copeland Service: Medical Other Interventions: Discharge Summary Assessment (RN) Last Done: 06/16/18 14:38 DC Date/Time DO NOT enter until pt leaves facility: 06/16/18 18:27
== END 2018-06-16 18:27 | disposition home or self-care (01) | DRG 392 ==
LOC: ED 15:15 → SUATTDRO 18:57 → 2S 18:57 → 2W 06-13 10:24

== ENCOUNTER 2024-03-09 09:15 | Inpatient (IN) ==
--- NOTE | 2024-03-09 09:56 | Emergency Department Note ---
History of Present Illness General Chief complaint: Referred by Doctor Stated complaint: PNEUMONIA, SOB, CHECK FOR BLOOD CLOTS, REF BY Time Seen by Provider: 03/09/24 09:27 Source: patient Mode of arrival: ambulatory Limitations: no limitations History of Present Illness Maximum Pain Intensity: 3 Patient is a 43-year-old female with history of psoriatic arthritis, migraines, Crohn's disease who presents for evaluation of chest heaviness and persistent cough for greater than 1 week. [facility] and started to develop fever and cough. She was diagnosed with pneumonia and finished a course of antibiotics including amoxicillin and doxycycline without improvement in her cough. She does report some shortness of breath and chest heaviness at baseline. She has no history of DVT/PE. No lower extremity swelling calf pain. Not on any hormone therapy at this time. Family history of pulmonary embolism on her father side. She is on chronic biologic for her Crohn's disease. Home Medications Medication Instructions Recorded Confirmed Type ibuprofen 200 mg tablet (Advil) 400 mg PO QID PRN Pain 07/18/18 03/05/23 History multivitamin 1 tab PO DAILY 07/18/18 03/05/23 History ustekinumab 90 mg/mL subcutaneous subcut 11/02/19 03/05/23 History syringe (Stelara) azelastine 137 mcg (0.1 %) nasal intranasal PRN 03/05/23 03/05/23 History spray fluconazole 150 mg tablet 150 mg PO Q3D 2 doses #2 tabs 11/27/23 Rx Allergies Allergy/AdvReac Type Severity Reaction Status Date / Time gluten Allergy Unknown GLUTEN Verified 03/05/23 08:32 INTOLERANCE-ABDOMINAL CRAMPING,FLU LIKE SYMPTOMS lactose Allergy Verified 03/05/23 08:32 wheat Allergy Verified 03/05/23 08:32 codeine AdvReac Severe Nausea Verified 03/05/23 08:32 hydrocodone AdvReac Unknown NAUSEA AND Verified 03/05/23 08:32 VOMITING Past Med/Surg History Problem List (Updated 03/09/24 @ 12:06 by Poli Porter PA-C) Multifocal pneumonia Psoriatic arthritis Migraines Uterine leiomyoma (Acute 04/25/11) Crohn's disease DVT prophylaxis Normal anion gap metabolic acidosis Celiac disease Psoriasis Colitis (Acute) Leukocytosis (Acute) Surgical History H/O tubal ligation at time of c/s. S/P fine needle aspiration S/P wisdom tooth extraction S/P X2 Family History (Updated 03/05/23 @ 08:43 by Rama Cunningham MD, FACOG) Aunt Colorectal cancer paternal Grandmother (Maternal) Colorectal cancer Hypertension Dyslipidemia Grandfather (Maternal) Diabetes Mother Thyroid disorder Hypertension Dyslipidemia Father Nephrolithiasis Lupus Liver disease Denies family history of Ovarian cancer Breast cancer Social History Smoking Status: Never smoker Do You Dip or Chew Tobacco: No; Hx Alcohol Use: Yes Alcohol type: wine Hx Substance Use: No Preferred Language: [place] Communication Ability: Effective Financial Accounting Manager Required: No Beliefs That Will Affect Care: None Current Living Situation: Spouse and Family current occupational status: employed Feels Safe at Home: Yes Assistive Devices: Glasses Review of Systems See HPI for pertinent positives and negatives. Remaining ROS is noncontributory. Physical Exam Vital Signs Vital Signs - 24 hr 03/09/24 09:23 03/09/24 09:52 03/09/24 09:52 Temperature 37.1 C 36.9 C Temperature Source Temporal Artery Scan Oral Pulse Rate 102 H 103 H Pulse Rate [Apical] 103 H Pulse Rhythm Regular Pulse Rhythm [Apical] Regular Pulse Strength [Apical] Normal Respiratory Rate 18 20 20 Respiratory Effort / Characteristics Non-Labored Spontaneous Non-Labored Spontaneous Respiratory Depth Normal Normal Respiratory Pattern Regular Blood Pressure 131/77 Blood Pressure [Left Arm] 103/77 Blood Pressure Mean 95 Blood Pressure Mean [Left Arm] 85 Blood Pressure Position [Left Arm] Semi-fowlers Pulse Oximetry 97 98 96 Oxygen Delivery Method Room Air Room Air Room Air Sepsis Recent Fever Within 48 Hours No Sepsis New/Unexplained Change in Mental Status No Sepsis Action Taken by Nursing No Action Required 03/09/24 10:17 03/09/24 11:17 Temperature 36.9 C Temperature Source Oral Pulse Rate 97 H Pulse Rate [Apical] 83 Pulse Rhythm Pulse Rhythm [Apical] Regular Pulse Strength [Apical] Normal Respiratory Rate 20 Respiratory Effort / Characteristics Non-Labored Spontaneous Respiratory Depth Normal Respiratory Pattern Regular Blood Pressure Blood Pressure [Left Arm] 110/70 Blood Pressure Mean Blood Pressure Mean [Left Arm] 83 Blood Pressure Position [Left Arm] Semi-fowlers Pulse Oximetry 96 Oxygen Delivery Method Room Air Sepsis Recent Fever Within 48 Hours Sepsis New/Unexplained Change in Mental Status Sepsis Action Taken by Nursing See below Constitutional well developed and well nourished Respiratory Normal respiratory effort. Bilateral breath sounds. No accessory muscle use. Rales noted to the right lower lobe. Cardiovascular Rate/Rhythm: + tachycardic Heart Sounds: normal S1 and normal S2 Extremities: normal capillary refill; no calf tenderness and no edema Skin no rashes, warm and dry Medical Decision Making Differential Diagnosis Pulmonary embolism, pneumonia, COVID-19, URI Medical Records Attestation: I reviewed the patient's medical records. Home Medications Current Medication List: was personally reviewed by me Laboratory Data Attestation: I reviewed the patient's lab results. 03/09/24 09:47 03/09/24 09:47 Lab Results 03/09/24 03/09/24 Range/Units 09:47 09:50 WBC 11.32 H (4.8-10.8) K/ul RBC 4.88 (4.20-5.40) M/uL Hgb 14.2 (12.0-16.0) g/dl Hct 42.6 (37.0-47.0) % MCV 87.3 (80.0-100.0) fL MCH 29.1 (25.0-34.0) pg MCHC 33.3 (32.0-36.0) g/dL RDW Std Deviation 44.0 (36.4-46.3) fL RDW Coeff of Gita 14.0 (11.5-14.5) % Plt Count 451 H (130-400) K/uL MPV 8.8 L (9.4-12.4) fL Immature Gran % (Auto) 0.5 % Neut % (Auto) 67.2 % Lymph % (Auto) 24.5 % Rich % (Auto) 5.8 % Eos % (Auto) 1.3 % Baso % (Auto) 0.7 % Neut # (Auto) 7.60 H (1.40-6.50) K/uL Lymph # (Auto) 2.77 (1.20-3.40) K/uL Rich # (Auto) 0.66 H (0.11-0.59) K/uL Eos # (Auto) 0.15 (0.00-0.50) K/uL Baso # (Auto) 0.08 (0.00-0.20) K/uL Immature Gran # (Auto) 0.06 (0.01-0.20) K/uL Sodium 136 (136-145) mmol/L Potassium 4.4 (3.5-5.1) mmol/L Chloride 102 (98-107) mmol/L Carbon Dioxide 27 (21-32) mmol/L Anion Gap 7 (3-11) BUN 13 (6-23) mg/dl Creatinine 0.81 (0.6-1.2) mg/dl Est Cr Clr Drug Dosing 106.9 ml/min eGFR 92.89 BUN/Creatinine Ratio 16.0 (10-20) Glucose 81 (70-99(Fasting)) mg/dl Calcium 9.5 (8.6-10.3) mg/dl Total Bilirubin 0.5 (0.2-1.0) mg/dl AST 19 (13-39) U/L ALT 25 (7-52) U/L Alkaline Phosphatase 40 (34-104) U/L Troponin I High Sens 2.6 (0-14) pg/ml B-Natriuretic Peptide 20 (0-100) pg/ml Total Protein 8.0 (6.0-8.3) gm/dl Albumin 4.2 (3.4-5.0) gm/dl Globulin 3.8 (2.5-4.0) gm/dl Albumin/Globulin Ratio 1.1 (0.9-2) HCG, Qual Negative (Negative) SARS-CoV-2, RNA, NAAT NEGATIVE (NEGATIVE) Imaging Data Radiologist's Impression: Chest CTA 03/09/24 09:29 CT angio chest PE protocol CT DOSE: 797.08 mGy.cm HISTORY: 43 years-old Female with Chest Pain, eval for PE. Acute chest pain with shortness of breath TECHNIQUE: Multiple CTA images of the chest were obtained after the intravenous administration of 97 ml Optiray. Coronal and sagittal MIPS were obtained from the axial data set and were submitted for review. All measurements were obtained according to NASCET criteria. A dose lowering technique was utilized adhering to the principles of ALARA. COMPARISON: None FINDINGS: CTA: Heart is normal in size without pericardial effusion. Unremarkable thoracic aorta. No pulmonary emboli are identified. CT CHEST: Unremarkable thyroid. Mild mediastinal and hilar lymphadenopathy includes a precarinal 1.3 cm lymph node and a 1.1 cm right hilar lymph node. No pneumothorax or pleural effusion. There are patchy multilobar distribution of reticular nodular and groundglass opacities with a 5.7 cm subpleural basilar right lower lobe consolidation on image 56 series 4 with central bronchograms. Mild associated bronchial wall thickening. Moderate lower lobe mucus plugging. Central airways are patent. No acute upper abdominal abnormality. Soft tissues and osseous structures are within normal limits. IMPRESSION: 1. No pulmonary emboli. 2. Multifocal bronchopneumonia with dense airspace consolidation of the basilar right lower lobe. 3. Mediastinal and hilar lymphadenopathy, likely reactive. 4. No pleural effusion. ACT 112: Negative or not required by law. The above report was generated using voice recognition software. It may contain grammatical, syntax or spelling errors. Electronically signed by: Huber Ayala M.D. 03/09/2024 11:42 AM ECG Data Attestation: I personally reviewed and interpreted this ECG as follows: Indication: + chest pain Rate (beats per minute): 97 Rhythm: + normal sinus Comparison ECG Date: no prior available Blood Pressure Blood Pressure Findings: Normal blood pressure MDM Narrative Patient is a 43-year-old female who presents with persistent chest tightness and cough in the setting of recent treatment for pneumonia. Hemodynamically stable. Afebrile nontoxic-appearing here today. Oxygen saturation is 96% on room air. Patient was sent over by primary care physician to rule out PE. Her only risk factor for PE is family history. CTA was ordered and reviewed. No evidence of pulmonary embolism. There is persistent right lower lobe bronchopneumonia on CTA. IV Rocephin was ordered patient to be admitted for pneumonia failed outpatient treatment. Stable for medical floor. Impression & Plan Pneumonia Discharge Plan Visit Data Chief Complaint: Referred by Doctor Stated Complaint: PNEUMONIA, SOB, CHECK FOR BLOOD CLOTS, REF BY DR HAUSER Provider: Kevin Urias Discharge Problem: Pneumonia Forms Stand Alone Forms: My [facility] GetNotes Prescriptions Prescriptions: No Action fluconazole 150 mg tablet 150 mg PO Q3D Qty: 2 0RF Stelara 90 mg/mL syringe subcut azelastine 137 mcg (0.1 %) aerosol,spray intranasal PRN ibuprofen [Advil] 200 mg Tablet 400 mg PO QID PRN (Reason: Pain) multivitamin Tablet 1 tab PO DAILY Referrals Referrals: Elaine Burciaga [Primary Care Provider] -
[2024-03-09 10:00] LABS: Basophils # (auto) 0.08 K/uL (0.00-0.20); Basophils % (auto) 0.7 %; Eosinophils # (auto) 0.15 K/uL (0.00-0.50); Eosinophils % (auto) 1.3 %; Hematocrit (blood only) 42.6 % (37.0-47.0); Hemoglobin 14.2 g/dl (12.0-16.0); Immature Granulocytes # (auto) 0.06 K/uL (0.01-0.20); Immature Granulocytes % (auto) 0.5 %; Lymphocytes # (auto) 2.77 K/uL (1.20-3.40); Lymphocytes % (auto) 24.5 %; Mean Corpuscular Hemoglobin 29.1 pg (25.0-34.0); Mean Corpuscular Hgb Conc 33.3 g/dL (32.0-36.0); Mean Corpuscular Volume 87.3 fL (80.0-100.0); Mean Platelet Volume 8.8 fL (9.4-12.4); Monocytes # (auto) 0.66 K/uL (0.11-0.59); Monocytes % (auto) 5.8 %; Neutrophils % (auto) 67.2 %; Platelet Count 451 K/uL (130-400); Red Blood Count 4.88 M/uL (4.20-5.40); White Blood Count 11.32 K/ul (4.8-10.8)
[2024-03-09 10:18] LABS: Albumin Globulin Ratio 1.1 (0.9-2); Albumin Level 4.2 gm/dl (3.4-5.0); Bilirubin,Total 0.5 mg/dl (0.2-1.0); Calcium 9.5 mg/dl (8.6-10.3); Creatinine Clr Calc Pharmacy 106.9 ml/min; Globulin 3.8 gm/dl (2.5-4.0); Potassium 4.4 mmol/L (3.5-5.1); Pregnancy Test, Serum Negative (Negative)
[2024-03-09 10:23] LABS: Troponin I High Sensitivity 2.6 pg/ml (0-14)
--- NOTE | 2024-03-09 11:44 | CT Scan Report ---
CT angio chest PE protocol CT DOSE: 797.08 mGy.cm HISTORY: 43 years-old Female with Chest Pain, eval for PE. Acute chest pain with shortness of breat h TECHNIQUE: Multiple CTA images of the chest were obtained after the intravenous administration of 97 ml Optiray. Coronal and sagittal MIPS were obtained from the axial data set and were submitted for r eview. All measurements were obtained according to NASCET criteria. A dose lowering technique was ut ilized adhering to the principles of ALARA. COMPARISON: None FINDINGS: CTA: Heart is normal in size without pericardial effusion. Unremarkable thoracic aorta. No pulmonary embol i are identified. CT CHEST: Unremarkable thyroid. Mild mediastinal and hilar lymphadenopathy includes a precarinal 1.3 cm lymph n ode and a 1.1 cm right hilar lymph node. No pneumothorax or pleural effusion. There are patchy multil obar distribution of reticular nodular and groundglass opacities with a 5.7 cm subpleural basilar rig ht lower lobe consolidation on image 56 series 4 with central bronchograms. Mild associated bronchial wall thickening. Moderate lower lobe mucus plugging. Central airways are patent. No acute upper abdominal abnormality. Soft tissues and osseous structures are within normal limits. IMPRESSION: 1. No pulmonary emboli. 2. Multifocal bronchopneumonia with dense airspace consolidation of the basilar right lower lobe. 3. Mediastinal and hilar lymphadenopathy, likely reactive. 4. No pleural effusion. ACT 112: Negative or not required by law. The above report was generated using voice recognition software. It may contain grammatical, syntax o r spelling errors. Electronically signed by: Huber Ayala M.D. 03/09/2024 11:42 AM
--- NOTE | 2024-03-09 12:03 | History & Physical Report ---
Date of Service March 09, 2024 Assessment & Plan (1) Multifocal pneumonia: Plan: Venus is a pleasant 43-year-old female with PMH of Crohn's disease, celiac disease, psoriatic arthritis, and uterine leiomyoma. She presented on 03/09 for SOB/dyspnea. Patient originally developed symptoms on Jeanette: Fever, body aches, productive cough. SOB both at rest and with exertion. She was diagnosed with pneumonia in early February, and has been on outpatient treatment since. Failure of outpatient treatment: No improvement with course of amoxicillin, doxycycline, and prednisone Blood cultures drawn in the ED Mild leukocytosis at 11.32 with neutrophil predominance; afebrile; not septic Chest CTA on arrival revealed no pulmonary emboli, but did confirm multifocal bronchopneumonia with dense airspace consolidation within the RLL Sputum culture ordered, pending MRSA swab ordered, pending May need to tailor antibiotics based on results Incentive spirometry, flutter valve Ceftriaxone 2000 mg IV q24h Guaifenesin 600 mg p.o. BID for cough DuoNeb Q6R Supplemental oxygen as needed; non-hypoxic on arrival Continuous pulse oximetry (2) Crohn's disease: Plan: Noted; patient receives Stelara injections every 4 weeks Plan Disposition: Admit to [facility] Full code Gluten-free diet VTE PPx: Lovenox 40 mg SQ q24h History of Present Illness Chief Complaint: Referred by Doctor Primary Care Provider: Elaine Low Gualberto Donovan is a pleasant 43-year-old female with PMH of Crohn's disease, celiac disease, psoriatic arthritis, and uterine leiomyoma. She presented on 03/09 for workup for pulmonary embolism in the setting of recent pneumonia diagnosis. Patient originally developed symptoms on Jeanette: Fever, body aches, productive cough. She endorses both SOB at rest and with exertion since that time. Patient was prescribed doxycycline and prednisone on 02/28, as well as amoxicillin on 03/02 after a chest x-ray came back positive for pneumonia. Despite completing course of both antibiotics and 5 days of prednisone, her symptoms have not improved. Her fevers have largely resolved, but she is still having night sweats, productive cough, body aches, orthopnea, and trouble breathing both at rest and with exertion. No blood in cough. However, she does have mild pleuritic chest pain, which she believes is secondary to frequent coughing. No personal history of DVT/PE, however her father does have a history of a PE, and was recommended that she come into the hospital to have a chest CTA performed. Patient does not take any medicine on daily basis. She has been taking ibuprofen, cough drops, and Delsym cough syrup for her symptoms at home. She does not have any prior episodes of pneumonia to her knowledge. She denies any past pulmonary history such as asthma or COPD. Allergies include Vicodin and codeine (which lead to nausea and vomiting); she denies a PCN allergy. Patient does not use supplemental oxygen at baseline or CPAP at night. No environmental exposures at work. She denies smoking, tobacco use, recent alcohol use. Patient's vitals are stable at time of admission. ED course: Ceftriaxone 2000 mg IV ROS: Patient endorses night-sweats, body aches, lightheadedness, SOB at rest and with exertion, orthopnea, productive cough (yellow sputum production), chest pain ("sore from coughing"), and pleuritic CP. Patient denies fever (resolved), nausea (resolved), diarrhea, changes in urinary/bowel habits, burning with urination, blood in the urine/stool, or numbness/tingling/swelling in the legs. Allergies Allergy/AdvReac Type Severity Reaction Status Date / Time gluten Allergy Unknown GLUTEN Verified 03/05/23 08:32 INTOLERANCE-ABDOMINAL CRAMPING,FLU LIKE SYMPTOMS lactose Allergy Verified 03/05/23 08:32 wheat Allergy Verified 03/05/23 08:32 codeine AdvReac Severe Nausea Verified 03/05/23 08:32 hydrocodone AdvReac Unknown NAUSEA AND Verified 03/05/23 08:32 VOMITING Home Medications Medication Instructions Recorded Confirmed Type ibuprofen 200 mg tablet (Advil) 400 mg PO QID PRN Pain 07/18/18 03/05/23 History multivitamin 1 tab PO DAILY 07/18/18 03/05/23 History ustekinumab 90 mg/mL subcutaneous subcut 11/02/19 03/05/23 History syringe (Stelara) azelastine 137 mcg (0.1 %) nasal intranasal PRN 03/05/23 03/05/23 History spray fluconazole 150 mg tablet 150 mg PO Q3D 2 doses #2 tabs 11/27/23 Rx Past Med/Surg History Problem List (Updated 03/09/24 @ 12:06 by Poli Porter PA-C) Multifocal pneumonia Psoriatic arthritis Migraines Uterine leiomyoma (Acute 04/25/11) Crohn's disease DVT prophylaxis Normal anion gap metabolic acidosis Celiac disease Psoriasis Colitis (Acute) Leukocytosis (Acute) Surgical History H/O tubal ligation at time of c/s. S/P fine needle aspiration S/P wisdom tooth extraction S/P X2 Family History (Updated 03/05/23 @ 08:43 by Rama Cunningham MD, FACOG) Aunt Colorectal cancer paternal Grandmother (Maternal) Colorectal cancer Hypertension Dyslipidemia Grandfather (Maternal) Diabetes Mother Thyroid disorder Hypertension Dyslipidemia Father Nephrolithiasis Lupus Liver disease Denies family history of Ovarian cancer Breast cancer Social History Smoking Status: Never smoker Do You Dip or Chew Tobacco: No; Hx Alcohol Use: Yes Alcohol type: wine Hx Substance Use: No Preferred Language: Estonian Communication Ability: Effective Engraver Machine Required: No Beliefs That Will Affect Care: None Current Living Situation: Spouse and Family current occupational status: employed Feels Safe at Home: Yes Assistive Devices: Glasses Review of Systems Review of Systems: See HPI above Physical Exam Physical Exam: General: no acute distress; pleasant affect; daughter at bedside; non-toxic appearing; well-nourished; cooperative; SpO2 96% on RA HEENT: normocephalic, atraumatic; no scleral icterus; PERRLA; vision and hearing grossly intact Neck: supple; no lymphadenopathy; trachea midline Skin: warm, dry without signs of tenting; no cyanosis; no rashes, bruising, lesions, or erythema noted CV: chest wall NTP; RRR; S1/S2 normal; no murmurs/rubs/gallops; pulses intact and symmetric at radial, DP, and PT Lungs: no acute respiratory distress; mild/hacking cough with deep breaths; symmetrical chest wall expansion; no wheezing appreciated, but does have diminished breath sounds bilaterally ABD: Soft, NTP; BS present; no rebound/guarding; no distention MSK: no tics or fasciculations; no edema noted in the LEs b/l, nonerythematous Neuro: A&Ox3; normal mood and affect; fluent speech; no focal deficits; sensation intact and symmetric in lower extremities bilaterally Results & Data Results & Data Vital Signs (Past 12 Hours) Vital Signs Temp Pulse Pulse Resp BP BP Pulse Ox 03/09/24 11:17 36.9 C 83 20 110/70 96 03/09/24 10:17 97 H 03/09/24 09:52 103 H 20 96 03/09/24 09:52 36.9 C 103 H 20 103/77 98 03/09/24 09:23 37.1 C 102 H 18 131/77 97 O2 Del Method 03/09/24 11:17 Room Air 03/09/24 10:17 03/09/24 09:52 Room Air 03/09/24 09:52 Room Air 03/09/24 09:23 Room Air Laboratory Results Abnormal lab results 03/09/24 Range/Units 09:47 WBC 11.32 H (4.8-10.8) K/ul Plt Count 451 H (130-400) K/uL MPV 8.8 L (9.4-12.4) fL Neut # (Auto) 7.60 H (1.40-6.50) K/uL Hidalgo # (Auto) 0.66 H (0.11-0.59) K/uL Diagnostic Findings Chest CTA 03/09/24 09:29 CT angio chest PE protocol CT DOSE: 797.08 mGy.cm HISTORY: 43 years-old Female with Chest Pain, eval for PE. Acute chest pain with shortness of breath TECHNIQUE: Multiple CTA images of the chest were obtained after the intravenous administration of 97 ml Optiray. Coronal and sagittal MIPS were obtained from the axial data set and were submitted for review. All measurements were obtained according to NASCET criteria. A dose lowering technique was utilized adhering to the principles of ALARA. COMPARISON: None FINDINGS: CTA: Heart is normal in size without pericardial effusion. Unremarkable thoracic aorta. No pulmonary emboli are identified. CT CHEST: Unremarkable thyroid. Mild mediastinal and hilar lymphadenopathy includes a precarinal 1.3 cm lymph node and a 1.1 cm right hilar lymph node. No pneumothorax or pleural effusion. There are patchy multilobar distribution of reticular nodular and groundglass opacities with a 5.7 cm subpleural basilar right lower lobe consolidation on image 56 series 4 with central bronchograms. Mild associated bronchial wall thickening. Moderate lower lobe mucus plugging. Central airways are patent. No acute upper abdominal abnormality. Soft tissues and osseous structures are within normal limits. IMPRESSION: 1. No pulmonary emboli. 2. Multifocal bronchopneumonia with dense airspace consolidation of the basilar right lower lobe. 3. Mediastinal and hilar lymphadenopathy, likely reactive. 4. No pleural effusion. ACT 112: Negative or not required by law. The above report was generated using voice recognition software. It may contain grammatical, syntax or spelling errors. Electronically signed by: Huber Ayala M.D. 03/09/2024 11:42 AM ECG Additional Comments: ECG revealed NSR at 97 bpm; QTc 441; no prior for comparison Code Status & VTE Plan Code Status Full code VTE Prophylaxis Plan VTE Prophylaxis will be ordered: Yes Supervising Physician Co-Signing Physician Notes Patient seen and examined, chart reviewed, case discussed with Poli Porter PA-C and I agree with the assessment and plan as above except as otherwise noted Labs and images reviewed 43-year-old female past medical history of Crohn's, celiac disease, psoriasis who presents with evidence of a consolidative right lower lobe pneumonia which has not improved on outpatient amoxicillin/doxycycline. She is not hypoxic but is short of breath and does have some discomfort while breathing. CTA did not show any evidence of PE. Given failure of outpatient antibiotics was recommended for inpatient management until improving. Sputum culture has been ordered, MRSA nare has been ordered. Patient is continued on Rocephin. Did have some weak MRSA coverage with Doxy, if MRSA nares positive then we will need to broaden coverage with vancomycin versus Bactrim. Blood cultures are pending. She is not septic on admission. At bedside assessment lungs are clear without wheezes/rales, although deep breathing does induce productive cough with some yellowish sputum. Heart rate is regular. Patient is nontoxic-appearing although does appear fatigued. Patient does have a history of IBD and is at high risk for VTE complications. Lovenox has been ordered. Have a past history of iron deficiency anemia and she is not tolerant of oral iron. Denies melena/hematochezia in the last several weeks, has had some bright red bleeding related to her IBD in the past but none recently and she denies history of hemodynamically significant GI bleed. Hemoglobin here is 14.2, MCV is normal. Will spot check ferritin and iron levels as these do not appear to have been drawn recently, no indication for transfusion at this time but given her intolerance of oral iron and history of IBD may benefit from 13 Venofer infusions to help reduce risk of readmission. Agree with assessment and management above PG Care Time/CCT Total # of Minutes Spent Total Time Spent with Patient: Total time spent is greater than 50% in coordination of care (as documented) at patient's floor/unit and/or counseling patient: [place] [address] INT INP/OBS CARE 2/55MIN Patient Type Established History Comprehensive Exam Comprehensive Medical Decision Making Moderate Complexity Diagnoses Multifocal pneumonia J18.9 Crohn's disease K50.90
--- OUTSIDE RECORDS SUMMARY | 2024-03-09 12:18 | External Medical Summary | Continuity of Care Document ---
Author Name Unknown Organization [address] [id number] Care Team Providers Care Master Hearth Technician Name Role Phone BeenalteiciaMariaha Primary Care Physician [phone] [id number] Date[facility] 02/29/24 - 02/29/[address] [address] [phone] Encounter Diagnosis Cough(Discharge Diagnosis) - 02/29/24 Discharge Disposition: Home or Self Care Attending Physician: PHUONG Sands Danielle B Allergies, Adverse Reactions, Alerts Substance Criticality Severity Reaction Reaction Severity Status codeine itchy painful rash A ctive Vicodin vomiting, cramps Act roger Glutens food sensitivity Act roger Assessment and Plan Extracted from: Title:Acute Visit Note Author:PHUONG Sands Dani elle B Date:02/29/24 1.Cough Highly suspicious forCAD or an atypical pneumonia. Will get chest x-ray today. In the meantime, will start doxycycline 100 mg twice daily x 10 days, prednisone 40 mgdaily x 5 days, Tessalon 100 mg 3 times daily as needed for cough. Encouraged patient tostart using albuterol inhaler as needed. -Discussed red flag symptoms for which patient needs to be seenemergently. -Follow-up if symptoms worsen or fail to improve. - Patient verbalizes understanding regarding plan of care and all questions answered. Immunizations Given and Recorded Vaccine Date Status Refusal Reason influenza virus vaccine, inactivated 12/28/23 Give n influenza virus vaccine, inactivated 02/26/23 Give n influenza virus vaccine, inactivated 11/10/19 Give n influenza virus vaccine, inactivated 12/23/18 Give n influenza virus vaccine, inactivated 12/18/17 Give n influenza virus vaccine, inactivated 12/15/16 Give n pneumococcal 20-valent conjugate vaccine 11/21/21 Given SARS-CoV-2 (COVID-19) mRNA-1273 vaccine 1 05/04/20 Recorded SARS-CoV-2 (COVID-19) mRNA-1273 vaccine 2 03/29/20 Recorded zoster vaccine, inactivated 01/31/19 Given zoster vaccine, inactivated 11/08/18 Given pneumococcal 13-valent vaccine 3 09/21/18 Given tetanus/diphtheria/pertuss, acel (Tdap) 4 09/21/18 Given tetanus/diphtheria/pertuss, acel (Tdap) 5 02/07/16 Recorded tetanus/diphtheria/pertuss, acel (Tdap) 6 11/22/15 Recorded tetanus/diphtheria/pertuss, acel (Tdap) 7 04/26/09 Recorded diphtheria/pertussis, whole cell/tetanus 8 11/22/15 Recorded 1Result Comment: 2021-11-21: Historical information-source unspecified 2Result Comment: 2021-11-21: Historical information-source unspecified 3Early/Late Reason: Other : Not sure why its says it's early I gave it at around 1530 today, forgot to chart it at vist 4Early/Late Reason: Other : Forgot to chart it at visit 5Result Comment: 2021-11-21: Historical information-source unspecified 6Result Comment: 2021-11-21: Historical information-source unspecified 7Result Comment: 2021-11-21: Historical information-source unspecified 8Result Comment: 2021-11-21: Historical information-source unspecified Medications Astelin 137 mcg/inh nasal spray Start: 05/08/22 9:07:00 AM EDT, 1 spray, each nostril, bid, Disp# 1 each, Refills: 1, [facility]acy: [facility] #[id number] Start Date: 05/08/22 Status: Ordered Augmentin 875 mg-125 mg oral tablet Start: 03/02/24 8:28:00 AM EST, amoxicillin 1 tab, PO, q12h, Disp# 14, Pharmacy: [facility] #[id number] Start Date: 03/02/24 Stop Date: 03/09/24 Status: Ordered Citrucel Start: 03/02/24 7:57:00 AM EST, See Instructions, 1 tablespoon po daily Start Date: 03/02/24 Status: Ordered Diflucan 150 mg oral tablet Start: 03/02/24 8:29:00 AM EST, 1 tab, PO, ONCE, Disp# 1 tab, Pharmacy: [facility] #[id number] Start Date: 03/02/24 Status: Ordered doxycycline hyclate 100 mg oral capsule Start: 02/29/24 10:38:00 AM EST, 1 cap, PO, bid, Disp# 20 cap, [facility]acy: [facility] #[id number] Start Date: 02/29/24 Stop Date: 03/10/24 Status: Ordered elderberry Start: 05/10/21 8:43:00 AM EDT, 1 tab po daily Start Date: 05/10/21 Status: Ordered multivitamin Start: 12/23/18 8:26:00 AM EDT, 1 tab, PO, Daily Start Date: 12/23/18 Status: Ordered predniSONE 20 mg oral tablet Start: 02/29/24 10:39:00 AM EST, 2 tab, PO, Daily, Disp# 10 tab, Pharmacy: [facility] #[id number] Start Date: 02/29/24 Stop Date: 03/05/24 Status: Ordered ProAir HFA 90 mcg/inh inhalation aerosol Start: 05/08/22 1:48:00 PM EDT, 2 puff, inhaled, qid, Disp# 1 each, Refills: 6, PRN: as needed for wheezing, Pharmacy: [facility] #[id number] Start Date: 05/08/22 Status: Ordered Stelara Prefilled Syringe 90 mg/mL SQ solution Start: 02/08/24 7:55:00 AM EST, 1 syringe, subQ, [id number], Disp# 1 mL, Refills: 0, Pharmacy: [facility] Start Date: 02/08/24 Status: Ordered Tessalon Perles 100 mg oral capsule Start: 02/29/24 10:38:00 AM EST, 1 cap, PO, tid, Disp# 30 cap, Pharmacy: [facility] #[id number] Start Date: 02/29/24 Status: Ordered triamcinolone 0.1% topical cream Start: 09/30/18 4:44:30 PM EDT, 1 appl, topical, bid, Disp# 454 g, Refills: 2, To rash BID, Pharmacy:[facility] - [id number] Start Date: 09/30/18 Status: Ordered Vitamin B Complex oral capsule Start: 12/23/18 8:26:00 AM EDT, 1 cap, PO, Daily Start Date: 12/23/18 Status: Ordered Vitamin C 500 mg oral tablet Start: 05/10/21 8:43:00 AM EDT, 2 tab, PO, Daily Start Date: 05/10/21 Status: Ordered Zepbound Pen 10 mg/0.5 mL subcutaneous solution Start: 02/03/24 2:38:00 PM EST, 10 mg =, subQ, q7days, Disp# 2 mL, Refills: 0, Pharmacy: [facility] #[id number] Start Date: 02/03/24 Status: Ordered zinc (as gluconate) 50 mg oral tablet Start: 05/10/21 8:43:00 AM EDT, See Instructions, 1 tab po daily Start Date: 05/10/21 Status: Ordered Mental Status 02/29/24 Barriers to Learning one year None evide nt Mandatory Health Literacy Documentation Yes Health Literacy Communication Barriers N ever Primary Language [place] Problem List Condition Confirmation Course Effective Dates Status H ealth Status Informant Anemia Confirmed Active Multiple nevi Confirmed Active Right cervical radiculopathy Confirmed Active Crohn's colitis Confirmed Active Migraine-cluster headache syndrome Confirmed Active Folate deficiency Confirmed Active BRBPR (bright red blood per rectum) Confirmed Active Gluten intolerance Confirmed Active Long-term use of high-risk medication Confirmed Active Herpes Confirmed Active Migraine Confirmed Active Obese Confirmed Active Psoriasis vulgaris Confirmed Active Psoriatic arthritis Confirmed Active Vitamin D deficiency Confirmed Active Diagnosis Diagnosis Type Effective Dates Health Status Clini macho Service Informant Cough Discharge Diagnosis 02/29/24 Non-Specified Procedures Procedure Date Related Diagnosis Body Site Status Colonoscopy 1, 2 01/15/22 Complete d X-ray of right ankle 3 06/21/20 Co mpleted Colonoscopy 4 08/25/18 Completed Biopsy 5 06/14/18 Completed Flexible sigmoidoscopy 6, 7 06/14/18 Completed EMG/NCS right upper extremity 8 04/27/18 Completed Bilateral tubal ligation 9 03/31/16 Completed section - at term 03/30/16 Completed 10 Completed Dental-Tooth Implants 11 Completed [place] Teeth 12 Completed 1Pathology: Polyp, ascending colon, polypectomy: fragments of sessile serrated polyp. Polyp, rectum,polypectomy: huperplastic polyp 2COLO to TI, edema at valve bx, psuedopolyps HF, repeat 4 years. 3no fractures 4The examine dportion o fthe ileum was normal. Multiple 5 mm non bleeding polyps in the transverse colon and in the ascending colon One 7 mm polyp in the transverse colon, removed with a hot snare. Resected and retrieved Normal mucosa in the entire examined colon. Biopsied. 5Colon bx benign colonic mucosa Negative for acute and chronic colitis Negative for microscopic colitis Negative for dysplasia and malignancy 6F/U as needed. 7Pathology results: Colon, random, biopsy: -Benign colonic mucosa -Negative for acute and chronic colitis. -Negative for microscopic colitis. -Negative for dysplasia and malignacy 8Abnormal study NCS are within normal limits EMG with reduce pronator teres, biceps, and triceps MUAPs with cervical paraspinal denervations. Conclusions: subacute right C7 radiculopathy 9Bilateral tubal ligation with Filshie clips. [id number] Vital Signs Most recent to oldest [Reference Range]: 1 Patient Weight 98.4 kg (02/29/24 10:11 AM) Temperature [36.5-37.9 DegC] 37.0 DegC (02/29/24 10:11 AM) Heart Rate 104 bpm (02/29/24 10:11 AM) Respiratory Rate 18 br/min (02/29/24 10:11 AM) Blood Pressure 114/80mmHg (02/29/24 10:11 AM) Cuff Pulse Pressure 34 mmHg (02/29/24 10:11 AM) Social History Social History Type Response Smoking Status Never smoked cigaret martha Sex Sex Representation Female (finding) [facility] Outpt Note * PHUONG Sands Danielle B: PERFORM Event Display: FCM Outpt Note Authored Date: [id number] Chief Complaint thursday getting hot and cold, nauseous. body aches. went on for 2 days. developed cough .no fevers recently. drainage. non stop cough at times. elevates head at night. unable to sleep. History of Present Illness Patient is a 43-year-old female here forproductive coughx 5 days. Also initially had bodyaches and nausea. Cough is frequent and very persistent. Can feel postnasal drainage but not much congestion. Denies ear pain, shortness of breath. No known sick contacts [facility] [place]. Review of Systems Negative unless stated in HPI. Physical Exam Vitals & Measurements T:37.0C HR:104(Monitored) RR:18 BP:114/80 SpO2:96% WT:98.400kg(Dosing) WT:98.4kg PHQ2 Data(Data Documented on:02/29/2024 10:11) Emotional health assessment NEGATIVE CONSTITUTIONAL: Well-developed, well nourished. No acute distress. NEUROLOGICAL: Patient alert, orientated, memory intact. Gait steady. HEENT: Head is normocephalic. Eyes- symmetrical, no erythema or discharge. Ears- Canals without erythema or discharge. Tympanic membrane intact, no erythema or effusion present. Nares- are patent bilaterally, no discharge noted. Oral- Oropharynx is clear, no erythema or exudate. Oral mucosa pink and moist. Lips are pink and moist, no lesions. Neck- Supple, no lymphadenopathy. LUNGS: Respirations even and unlabored, chest expansion symmetrical. Inspiratory and expiratory wheezingin right middle and lower lobes. HEART: Rate and rhythm regular. No cardiac murmur, click, or rub noted. PSYCHOSOCIAL: Calm and cooperative, interacts appropriately withstaff. Assessment/Plan 1.Cough Highly suspicious forCAD or an atypical pneumonia. Will get chest x-ray today. In the meantime, will start doxycycline 100 mg twice daily x 10 days, prednisone 40 mgdaily x 5 days, [id number] mg 3 times daily as needed for cough. Encouraged patient tostart using albuterol inhaler asneeded. -Discussed red flag symptoms for which patient needs to be seenemergently. -Follow-up if symptoms worsen or fail to improve. - Patient verbalizes understanding regarding plan of care and all questions answered. Problem List/Past Medical History Ongoing Anemia BRBPR (bright red blood per rectum) Crohn's colitis Folate deficiency Gluten intolerance Herpes Long-term use of high-risk medication Migraine Migraine-cluster headache syndrome Multiple nevi Obese Psoriasis vulgaris Psoriatic arthritis Right cervical radiculopathy Vitamin D deficiency Resolved PSA (psoriatic arthritis) Procedure/Surgical History Colonoscopy| Service Date: 01/15/2022X-ray of right ankle| Service Date: 1Colonoscopy| Service Date: 08/25/2018Biopsy| Service Date: 06/14/2018Flexible sigmoidoscopy| Service Date: 06/14/2018EMG/NCS right upper extremity| Service Date: 04/27/2018Bilateral tubal ligation| Service Date: 03/31/2016Cesarean section - at term| Service Date: 03/30/2016[facility] Medications albuterol(ProAir HFA 90 mcg/inh inhalation aerosol), 2 puff, inhaled, qid, PRN, 6 refills ascorbic acid(Vitamin C 500 mg oral tablet), 1000 mg= 2 tab, PO, Daily azelastine nasal(Astelin 137 mcg/inh nasal spray), 1 spray, each nostril, bid, 1 refills benzonatate(Tessalon Perles 100 mg oral capsule), 100 mg= 1 cap, PO, tid doxycycline(doxycycline hyclate 100 mg oral capsule), 100 mg= 1 cap, PO, bid elderberry multivitamin, 1 tab, PO, Daily multivitamin(Vitamin B Complex oral capsule), 1 cap, PO, Daily predniSONE(predniSONE 20 mg oral tablet), 40 mg= 2 tab, PO, Daily tirzepatide(Zepbound Pen 10 mg/0.5 mL subcutaneous solution), 10 mg, subQ, q7days triamcinolone topical(triamcinolone 0.1% topical cream), 1 appl, topical, bid, 2 refills ustekinumab(Stelara Prefilled Syringe 90 mg/mL SQ solution), 1 syringe, subQ, [id number] zinc gluconate(zinc (as gluconate) 50 mg oral tablet), See Instructions Allergies Glutensfood sensitivity Vicodinvomiting, cramps codeineitchy painful rash Social History Smoking Status Never smoked cigarettes Alcohol Use:Current Type:Wine Frequency:1-2 times per week Employment/School Status:Employed Description:works at [employer] Home/Environment Lives with:Children, Spouse Feels unsafe at home:No Substance Abuse - Denies Substance Abuse Tobacco - Denies Tobacco Use Family History Alcoholism: Father. Cancer: PGM. Diabetes Mellitus: MGM and PGF. Heart attack: MGF and PGF. Heart disease: MGF and PGF. Hypertension: Mother, Father, MGF, MGM and PGF. Lupus anticoagulant disorder: Father. Lymphoma: PGM. Mixed hyperlipidemia: Father. Stroke: PGF. Health Status Family Member(s) Family Member(s) Relationship: PGF, Age: 78 Years, Cause: Alzheimers, Parkinson's Immunizations Vaccine Date Status influenza virus vaccine, inactivated 12/28/2023 Given influenza virus vaccine, inactivated 02/26/2023 Given pneumococcal 20-valent conjugate vaccine 11/21/2021 Given SARS-CoV-2 (COVID-19) mRNA-1273 vaccine 05/04/2020 Recorded Comments : 2021-11-21: Historical information-source unspecified SARS-CoV-2 (COVID-19) mRNA-1273 vaccine 03/29/2020 Recorded Comments : 2021-11-21: Historical information-source unspecified influenza virus vaccine, inactivated 11/10/2019 Given zoster vaccine, inactivated 01/31/2019 Given influenza virus vaccine, inactivated 12/23/2018 Given zoster vaccine, inactivated 11/08/2018 Given pneumococcal 13-valent vaccine 09/21/2018 Given Comments : Other : Not sure why its says it's early I gave it at around 1530 today, forgot to chart it at vist tetanus/diphtheria/pertuss, acel (Tdap) 09/21/2018 Given Comments : Other : Forgot to chart it at visit influenza virus vaccine, inactivated 12/18/2017 Given influenza virus vaccine, inactivated 12/15/2016 Given tetanus/diphtheria/pertuss, acel (Tdap) 02/07/2016 Recorded Comments : 2021-11-21: Historical information-source unspecified tetanus/diphtheria/pertuss, acel (Tdap) 11/22/2015 Recorded Comments : 2021-11-21: Historical information-source unspecified diphtheria/pertussis, whole cell/tetanus 11/22/2015 Recorded Comments : 2021-11-21: Historical information-source unspecified tetanus/diphtheria/pertuss, acel (Tdap) 04/26/2009 Recorded Comments : 2021-11-21: Historical information-source unspecified Recommendations Health Maintenance Pending(in the next year) OverDue Lipid Screening due02/24/22and every 1825day Due Adult COVID-19 Vaccination due02/29/24Unknown Frequency Adult Social Determinants of Health Screening due02/29/24Unknown Frequency Breast Cancer Screening due02/29/24Unknown Frequency Cervical Cancer Screening due02/29/24Unknown Frequency Due In Future Adult Influenza Vaccine not due until08/23/24and every 1year Satisfied(in the past 1 year) Satisfied Adult Influenza Vaccine on12/28/23.Satisfied by BRONWYN Martin Natalie Body Mass Index on01/19/24.Satisfied by BRONWYN Cristobal Kirsten Electronic Signature on File Electronically Reviewed/Signed by: PHUONG Pinto Author Signature Dt/Tm:02/29/2024 10:59 AM Family Medicine DBN Patient Care team information Care Team Personnel Name: PHUONG Burciaga Tara Position: Nurse Pract - Family Med Member Role: Primary Care Provider Address: [address] [place] [id number] Care Team Related Persons Name: AGUEDA RODRIGUEZ Name: PITO SILVESTRE"
--- OUTSIDE RECORDS SUMMARY | 2024-03-09 12:18 | External Medical Summary | Continuity of Care Document ---
Author Name Unknown Organization [address] [id number] Care Team Providers Care Process Assistant Name Role Phone Elaine Burciaga Primary Care Physician [phone] [id number] Date[facility] 12/28/23 - 12/28/[address] [address] [phone] Encounter Diagnosis Need for vaccination(Discharge Diagnosis) - 12/28/23 Discharge Disposition: Home or Self Care Attending Physician: PHUONG Burciaga Tara Allergies, Adverse Reactions, Alerts Substance Criticality Severity Reaction Reaction Severity Status codeine itchy painful rash A ctive Vicodin vomiting, cramps Act roger Glutens food sensitivity Act roger Immunizations Given and Recorded Vaccine Date Status [...] Disp# 1 each, Refills: 1, Pharmacy: [facility] #[id number] Start Date: 05/08/22 Status: Ordered elderberry Start: 05/10/21 8:43:00 AM EDT, 1 tab po daily Start Date: 05/10/21 Status: Ordered multivitamin Start: 12/23/18 8:26:00 AM EDT, 1 tab, PO, Daily Start Date: 12/23/18 Status: Ordered ProAir HFA 90 mcg/inh inhalation aerosol Start: 05/08/22 1:48:00 PM EDT, 2 puff, inhaled, qid, Disp# 1 each, Refills: 6, PRN: as needed for wheezing, Pharmacy: [facility] #[id number] Start Date: 05/08/22 Status: Ordered Stelara Prefilled Syringe 90 mg/mL SQ solution Start: 12/16/23 9:04:00 AM EDT, 1 syringe, subQ, [id number], Disp# 1 mL, Refills: 0, Pharmacy: [facility] Start Date: 12/16/23 Status: Ordered triamcinolone 0.1% topical cream Start: 09/30/18 4:44:30 PM EDT, 1 appl, topical, bid, Disp# 454 g, Refills: 2, To rash BID, Pharmacy:[facility] Start Date: 09/30/18 Status: Ordered Vitamin B Complex oral capsule Start: 12/23/18 8:26:00 AM EDT, 1 cap, PO, Daily Start Date: 12/23/18 Status: Ordered Vitamin C 500 mg oral tablet Start: 05/10/21 8:43:00 AM EDT, 2 tab, PO, Daily Start Date: 05/10/21 Status: Ordered ZEPBOUND 7.5 MG/0.5 ML PEN Start: 11/20/23 7:59:00 AM EDT, ZEPBOUND 7.5 MG/0.5 ML PEN, 7.5 = mg, subQ, q7days, Disp# 2 mL, Refills: 0, Pharmacy [facility] #[id number] Start Date: 11/20/23 Status: Ordered Zepbound Pen 7.5 mg/0.5 mL subcutaneous solution Start: 12/15/23 11:12:00 AM EDT, 7.5 mg =, subQ, q7days, Disp# 2 mL, Refills: 0, [facility]: [id number][id number] Start Date: 12/15/23 Status: Ordered zinc (as gluconate) 50 mg oral tablet Start: 05/10/21 8:43:00 AM EDT, See Instructions, 1 tab po daily Start Date: 05/10/21 Status: Ordered Problem List Condition Confirmation Course Effective Dates Status H ealth Status Informant Anemia Confirmed Active Multiple nevi Confirmed Active Right cervical radiculopathy Confirmed Active Crohn's colitis Confirmed Active Migraine-cluster headache syndrome Confirmed Active Folate deficiency Confirmed Active Gluten intolerance Confirmed Active Long-term use of high-risk medication Confirmed Active Herpes Confirmed Active Migraine Confirmed Active Obese Confirmed Active Psoriasis vulgaris Confirmed Active Psoriatic arthritis Confirmed Active Vitamin D deficiency Confirmed Active Diagnosis Diagnosis Type Effective Dates Health Status Clinical Service Informant Need for vaccination Discharge Diagnosis 12/28/23 Non-Specified Procedures Procedure Date Related Diagnosis Body Site Status Colonoscopy 1, 2 01/15/22 Complete d X-ray of right ankle 3 06/21/20 Co mpleted Colonoscopy 4 08/25/18 Completed Biopsy 5 06/14/18 Completed Flexible sigmoidoscopy 6, 7 06/14/18 Completed EMG/NCS right upper extremity 8 04/27/18 Completed Bilateral tubal ligation 9 03/31/16 Completed section - at term 03/30/16 Completed 10 Completed Dental-Tooth Implants 11 Completed [place] [facility] 12 Completed 1Pathology: Polyp, ascending colon, [...] radiculopathy 9Bilateral tubal ligation with Filshie clips. [id number] Social History Social History Type Response Smoking Status Never smoked cigaret martha Sex Sex Representation Female (finding) Patient Care team information Care Team Personnel Name: PHUONG Burciaga Tara Position: Nurse Pract - Family Med Member Role: Primary Care Provider Address: [address] [place] [id number] Care Team Related Persons Name: AGUEDA RODRIGUEZ Name: PITO SILVESTRE
--- OUTSIDE RECORDS SUMMARY | 2024-03-09 12:18 | External Medical Summary | Continuity of Care Document ---
Author Name Unknown Organization [address] [id number] Care Team Providers Care Field Advisor Name Role Phone Elaine Burciaga Primary Care Physician [phone] [id number] Date(s): 11/18/23 - 11/18/[address] [address] [phone] Encounter Diagnosis UTI symptoms(Discharge Diagnosis) - 11/18/23 Unspecified symptoms and signs involving the genitourinary system(Final) - Discharge Disposition: Home or Self Care Attending Physician: PHUONG Burciaga Tara Allergies, Adverse Reactions, Alerts Substance Criticality Severity Reaction Reaction Severity Status codeine itchy painful rash A ctive Vicodin vomiting, cramps Act roger Glutens food sensitivity Act roger Assessment and Plan Extracted from: Title:UTI Author:PHUONG Burciaga Tara Date: UTI symptoms Acute/Chronic: acute Goal:Resolution/ control Status:ongoing Data: records/pt report Plan: Urinary symptoms. No fevers or CVA tenderness. UA showed blood,however shetookabxlatevening socouldskew results.Will send urine cx. Treat with macrobid. If symptoms worsen or develops fever she should be re-evaluated. Will call if cx shows bacteria not sensitive to macrobid. Push fluids, no caffeine or carbonated beverages. time spent reviewing chart, face to face visit, ordersand documentation:23 min Immunizations Given and Recorded Vaccine Date Status Refusal Reason influenza virus vaccine, inactivated 02/26/23 Give n [...] Disp# 1 each, Refills: 1, Pharmacy: [facility] #[id number] Start Date: 05/08/22 Status: Ordered elderberry Start: 05/10/21 8:43:00 AM EDT, 1 tab po daily Start Date: 05/10/21 Status: Ordered Macrobid 100 mg oral capsule Start: 11/18/23 9:41:00 AM EDT, 1 cap, PO, bid, Disp# 10 cap, X 5 day, Stop: 11/23/23 9:41:00 AM EDT,Pharmacy: [facility] #[id number] Start Date: 11/18/23 Stop Date: 11/23/23 Status: Ordered multivitamin Start: 12/23/18 8:26:00 AM EDT, 1 tab, PO, Daily Start Date: 12/23/18 Status: Ordered ProAir HFA 90 mcg/inh inhalation aerosol Start: 05/08/22 1:48:00 PM EDT, 2 puff, inhaled, qid, Disp# 1 each, Refills: 6, PRN: as needed for wheezing, Pharmacy: [facility] #[id number] Start Date: 05/08/22 Status: Ordered Stelara Prefilled Syringe 90 mg/mL SQ solution Start: 11/20/23 1:21:00 PM EDT, 1 syringe, subQ, q0dnmqi, Disp# 1 mL, Refills: 0, Pharmacy: [facility] Start Date: 11/20/23 Status: Ordered triamcinolone 0.1% topical cream Start: 09/30/18 4:44:30 PM EDT, 1 appl, topical, bid, Disp# 454 g, Refills: 2, To rash BID, Pharmacy:[facility] - [address] [place] [address] AVE Start Date: 09/30/18 Status: Ordered Vitamin B Complex oral capsule Start: 12/23/18 8:26:00 AM EDT, 1 cap, PO, Daily Start Date: 12/23/18 Status: Ordered Vitamin C 500 mg oral tablet Start: 05/10/21 8:43:00 AM EDT, 2 tab, PO, Daily Start Date: 05/10/21 Status: Ordered Zepbound 10 mg/0.5 mL subcutaneous solution Start: 10/19/23 1:16:00 PM EDT, 10 mg =, subQ, q7days, Disp# 1 kit, Pharmacy: [facility] #[id number] Start Date: 10/19/23 Status: Ordered ZEPBOUND 7.5 MG/0.5 ML PEN Start: 11/20/23 7:59:00 AM EDT, ZEPBOUND 7.5 MG/0.5 ML PEN, 7.5 = mg, subQ, q7days, Disp# 2 mL, Refills: 0, Pharmacy [facility] #[id number] Start Date: 11/20/23 Status: Ordered Zepbound 7.5 mg/0.5 mL subcutaneous solution Start: 10/22/23 6:51:00 PM EDT, See Instructions, Disp# 2 mL, Refills: 0, inject 7.5 milligrams subcutaneously every 7 days, Pharmacy: [email or web address] #[id number] Start Date: 10/22/23 Status: Ordered zinc (as gluconate) 50 mg oral tablet Start: 05/10/21 8:43:00 AM EDT, See Instructions, 1 tab po daily Start Date: 05/10/21 Status: Ordered Mental Status 11/18/23 Barriers to Learning one year None evide nt Mandatory Health Literacy Documentation Yes Health Literacy Communication Barriers N ever Primary Language Upper Sorbian Problem List Condition Confirmation Course Effective Dates Status H ealth Status Informant Anemia Confirmed Active Right cervical radiculopathy Confirmed Active Crohn's colitis Confirmed Active Migraine-cluster headache syndrome Confirmed Active Folate deficiency Confirmed Active Gluten intolerance Confirmed Active Long-term use of high-risk medication Confirmed Active Herpes Confirmed Active Migraine Confirmed Active Obese Confirmed Active Psoriasis vulgaris Confirmed Active Psoriatic arthritis Confirmed Active Vitamin D deficiency Confirmed Active Diagnosis Diagnosis Type Effective Dates Health Status Cl inical Service Informant UTI symptoms Discharge Diagnosis 11/18/23 Non-Specified Procedures Procedure Date Related Diagnosis Body Site Status Colonoscopy 1, 2 01/15/22 Complete d X-ray of right ankle 3 06/21/20 Co mpleted Colonoscopy 4 08/25/18 Completed Biopsy 5 06/14/18 Completed Flexible sigmoidoscopy 6, 7 06/14/18 Completed EMG/NCS right upper extremity 8 04/27/18 Completed Bilateral tubal ligation 9 03/31/16 Completed section - at term 03/30/16 Completed 10 Completed Dental-Tooth Implants 11 Completed [place] [facility] 12 Completed 1Pathology: Polyp, ascending colon, [...] radiculopathy 9Bilateral tubal ligation with Filshie clips. [id number] Results Laboratory List Name Date Urine Chemstick POC Outpt. (Urinalysis C hemstick POC Outpt.) 11/18/23 Most recent to oldest [Reference Range]: 1 Glucose Urine Dipstick Ref Range [negati ve] (11/18/23 9:30 AM) Bilirubin Urine Dipstick Ref Range [nega tive] (11/18/23 9:30 AM) Specific [place] Urine Ref Range [No Nor mal Defined] (11/18/23 9:30 AM) Protein Urine Dipstick Ref Range [negati ve] (11/18/23 9:30 AM) pH Urine Dipstick Ref Range [4.5 - 8.0] (11/18/23 9:30 AM) Ketones Urine Dipstick Ref Range [negati ve] (11/18/23 9:30 AM) Blood Urine Dipstick Ref Range [negative ] (11/18/23 9:30 AM) Urobilinogen Urine Dipstick Ref Range [0 .2 - 1.0 mg/dL] (11/18/23 9:30 AM) Nitrites Urine Dipstick Ref Range [negat roger] (11/18/23 9:30 AM) Leukocytes Urine Dipstick Ref Range [neg ative] (11/18/23 9:30 AM) U Leuk Est Negative (11/18/23 9:30 AM) U Nitrite Negative (11/18/23 9:30 AM) U Urobilinogen 0.2 mg/dl (11/18/23 9:30 AM) U Protein Negative (11/18/23 9:30 AM) U pH 6 (11/18/23 9:30 AM) U Blood Trace (11/18/23 9:30 AM) U Spec Grav 1.015 1 (11/18/23 9:30 AM) U Ketones Negative (11/18/23 9:30 AM) U Bili Negative (11/18/23 9:30 AM) U Gluc Negative (11/18/23 9:30 AM) U Appear Clear (11/18/23 9:30 AM) Urine color urine dipstick Yellow (11/18/23 9:30 AM) 1Result Comment: Performed at: [facility], [address] [place] [id number] Orders for Microbiology Reports Name Date Urine Culture (CULTURE, URINE) 11/18/23 Microbiology Reports TEST:Urine.Cx STATUS:Auth (Verified) BODY SITE: SOURCE:Urine COLLECTED DATE/TIME:11/18/23 9:33 AM Status FINAL 11/20/2023 Vital Signs Most recent to oldest [Reference Range]: 1 Patient Weight 102.4 kg (11/18/23 9:05 AM) Temperature [36.5-37.9 DegC] 36.8 DegC (11/18/23 9:05 AM) Heart Rate 94 bpm (11/18/23 9:05 AM) Respiratory Rate 18 br/min (11/18/23 9:05 AM) Blood Pressure 106/70mmHg (11/18/23 9:05 AM) Social History Social History Type Response Smoking Status Never smoked cigaret martha Sex Sex Representation Female (finding) FCM Outpt Note * PHUONG Burciaga Tara: PERFORM Event Display: FCM Outpt Note Authored Date: Chief Complaint c/o frequant urination, buring, pain. Took an old ABX from 2009 (1 dose this AM and 1 dose last PM). States was Nitrofurantin. History of Present Illness Yesterday she developed urinary frequency, dysuria and urgency. She had hematuria (like pink). She had an abxat home so took a dose. No fevers or flank pain. Review of Systems Constitutional: No fever, chills, sweats Cardiac: no chest pain, palpitations, edema Pulmonary: No shortness of breath, dyspnea with exertion, cough, hemoptysis, wheezing, chest pain. : As per HPI Physical Exam Vitals & Measurements T:36.8C HR:94(Monitored) RR:18 BP:106/70 SpO2:98% WT:102.4kg WT:102.400kg(Dosing) PHQ2 Data(Data Documented on:11/18/2023 09:05) Emotional health assessment NEGATIVE head- normocephalic throat- pharynx non erythematous, no exudate, no masses mouth- buccal mucosa, moist and intact, dentition intact, no caries neck-no lymphadenopathy Pulmonary- chest expansion symmetric, CTA (clear to auscultation), eupnea, no adventitious sounds (rales, crackles, wheezes) CV (cardiovascular)- RRR no m/r/g (systolic ejection murmur, rubs, gallops), good peripheral perfusion abdomen- soft non-tender w/o masses, BS present, no hepatosplenomegaly, no bruits Neuro:Alert, Oriented Assessment/Plan UTI symptoms Acute/Chronic: acute Goal:Resolution/ control Status:ongoing Data: records/pt report Plan: Urinary symptoms. No fevers or CVA tenderness. UA showed blood,however shetookabxlatevening socouldskew results.Will send urine cx. Treat with macrobid. If symptoms worsen or develops fever she should be re-evaluated. Will call if cx shows bacteria not sensitive to macrobid. Push fluids, no caffeine or carbonated beverages. time spent reviewing chart, face to face visit, ordersand documentation:23 min Problem List/Past Medical History Ongoing Anemia Crohn's colitis Folate deficiency Gluten intolerance Herpes Long-term use of high-risk medication Migraine Migraine-cluster headache syndrome Obese Psoriasis vulgaris Psoriatic arthritis Right cervical radiculopathy Vitamin D deficiency Resolved Multiple nevi PSA (psoriatic arthritis) Procedure/Surgical History Colonoscopy| Service [...] 1 spray, each nostril, bid, 1 refills elderberry multivitamin, 1 tab, PO, Daily multivitamin(Vitamin B Complex oral capsule), 1 cap, PO, Daily nitrofurantoin(Macrobid 100 mg oral capsule), 100 mg= 1 cap, PO, bid tirzepatide(Zepbound 7.5 mg/0.5 mL subcutaneous solution), See Instructions tirzepatide(Zepbound 10 mg/0.5 mL subcutaneous solution), 10 mg, subQ, q7days triamcinolone topical(triamcinolone 0.1% topical cream), 1 appl, topical, bid, 2 refills ustekinumab(Stelara Prefilled Syringe 90 mg/mL SQ solution), See Instructions, 5 refills zinc gluconate(zinc (as gluconate) 50 mg oral tablet), See Instructions Allergies Glutensfood sensitivity Vicodinvomiting, cramps codeineitchy painful rash Social History Smoking Status Never smoked cigarettes Alcohol Use:Current Type:Wine Frequency:1-2 times per week Employment/School Status:Employed Description:works at [employer] Home/Environment Lives with:Children, Spouse Feels unsafe at [...] Vaccine Date Status influenza virus vaccine, inactivated 02/26/2023 Given pneumococcal [...] next year) OverDue Lipid Screening due02/24/22and every 1826day Adult Influenza Vaccine due08/23/23and every 1year Body Mass Index due09/09/23and every 366day Due Adult COVID-19 Vaccination due11/18/23Unknown Frequency Adult Social Determinants of Health Screening due11/18/23Unknown Frequency Breast Cancer Screening due11/18/23Unknown Frequency Cervical Cancer Screening due11/18/23Unknown Frequency Satisfied(in the past 1 year) Satisfied Adult Influenza Vaccine on02/26/23.Satisfied by BRONWYN Rios Amber Electronic Signature on File Electronically Reviewed/Signed by: PHUONG Patel Author Signature Dt/Tm:11/18/2023 09:51 AM Department of Family Medicine TB Patient Care team information Care Team Personnel Name: PHUONG Burciaga Tara Position: Nurse Pract - Family Med Member Role: Primary Care Provider Address: [address] [place] [address], [place] [address] [place] Care Team Related Persons Name: AGUEDA RODRIGUEZ Name: PITO SILVESTRE"
--- OUTSIDE RECORDS SUMMARY | 2024-03-09 12:18 | External Medical Summary | Continuity of Care Document ---
Author Name Unknown Organization [place] [address] [facility] [address] [phone] Care Team Providers Care Inventory Assistant Name Role Phone Elaine Burciaga Primary Care Physician [phone] Encounter [facility] [id number] Date(s): 03/02/24 - 03/02/24 [place] [address] [facility] [address] [address] [phone] Encounter Diagnosis Body mass index [BMI] 33.0-33.9, adult(Discharge Diagnosis) - 03/02/24 Crohn's colitis(Discharge Diagnosis) - 03/02/24 Discharge Disposition: Home or Self Care Attending Physician: RAVEN Wright Kelli Jo Referring Physician: RAVEN Wright Kelli Jo Allergies, Adverse Reactions, Alerts Substance Criticality Severity Reaction Reaction Severity Status codeine itchy painful rash A ctive Vicodin vomiting, cramps Act roger Glutens food sensitivity Act roger Assessment and Plan Extracted from: Title:Office Visit Note Author:RAVEN Wright Kell i Jo Date:03/02/24 Body mass index [BMI] 33.0-3 3.9, adult Crohn's colitis -Patient reports that she obtained her flu vaccine in October2023 and it is up-to-date. -January labs were unremarkableand fecal calprotectin was normal. -Repeat fecal calprotectin and laboratory studies prior to follow-up visit. -Patient has had 1 episode of diarrhea since being on antibiotic, she was provided with C. difficilespecimen collectionkitshould her symptoms progress. - Patient states that she is very compliantwith her current Stelara injections. Patient initiallydiagnosed with Crohn's colitis 08/2018 Most recent colonoscopy: 01/15/2022: normal-appearing terminal ileum. Area of moderately congested mucosa found in the opening of the ileocecal valve and biopsies obtained for histology. Scattered pseudopolyps at thehepatic flexure. Exam otherwise without abnormality. Pathology results demonstrated active chronic colitis without dysplasia with recommendation for repeat colonoscopy in 4 years (12/2025). - Recent ALEX negative -Continue routine health maintenance including dermatology,ophthalmology, and dental. Constipation/BRBPR: Patient complained of constipation and BRBPRat prior appointment. She has since added Citruceland followedbowel regimenthat has resolved her symptoms. -BRBPR resolvedon bowel regimen.Constipation is also currently resolved on fiber supplementation and bowel regimen. GI follow up 6 months, sooner if needed. I have spent 35 minutes in evaluation, education and documentation of this pt in both face to face and non-face to face activities. Immunizations Given and Recorded Vaccine Date Status [...] Disp# 1 each, Refills: 1, Pharmacy: [facility] #[id number] Start Date: 05/08/22 Status: Ordered Augmentin 875 mg-125 mg oral tablet Start: 03/02/24 8:28:00 AM EST, amoxicillin 1 tab, PO, q12h, Disp# 14, Pharmacy: [facility] #[id number] Start Date: 03/02/24 Stop Date: 03/09/24 Status: Ordered Citrucel Start: 03/02/24 7:57:00 AM EST, See Instructions, 1 tablespoon po daily Start Date: 03/02/24 Status: Ordered Diflucan 150 mg oral tablet Start: 03/02/24 8:29:00 AM EST, 1 tab, PO, ONCE, Disp# 1 tab, Pharmacy: [facility] #[id number] Start Date: 03/02/24 Status: Ordered doxycycline hyclate 100 mg oral capsule Start: 02/29/24 10:38:00 AM EST, 1 cap, PO, bid, Disp# 20 cap, Pharmacy: [facility] #[id number] Start Date: 02/29/24 Stop Date: 03/10/24 Status: Ordered elderberry Start: 05/10/21 8:43:00 AM EDT, 1 tab po daily Start Date: 05/10/21 Status: Ordered multivitamin Start: 12/23/18 8:26:00 AM EDT, 1 tab, PO, Daily Start Date: 12/23/18 Status: Ordered predniSONE 20 mg oral tablet Start: 02/29/24 10:39:00 AM EST, 2 tab, PO, Daily, Disp# 10 tab, Pharmacy: [facility] #[id number] Start Date: 02/29/24 Stop Date: 03/05/24 Status: Ordered ProAir HFA 90 mcg/inh inhalation aerosol Start: 05/08/22 1:48:00 PM EDT, 2 puff, inhaled, qid, Disp# 1 each, Refills: 6, PRN: as needed for wheezing, Pharmacy: [facility] #[id number] Start Date: 05/08/22 Status: Ordered Stelara Prefilled Syringe 90 mg/mL SQ solution Start: 02/08/24 7:55:00 AM EST, 1 syringe, subQ, [id number], Disp# 1 mL, Refills: 0, Pharmacy: [facility] Start Date: 02/08/24 Status: Ordered Tessalon Perles 100 mg oral capsule Start: 02/29/24 10:38:00 AM EST, 1 cap, PO, tid, Disp# 30 cap, Pharmacy: [facility] #[id number] Start Date: 02/29/24 Status: Ordered triamcinolone 0.1% topical cream Start: 09/30/18 4:44:30 PM EDT, 1 appl, topical, bid, Disp# 454 g, Refills: 2, To rash BID, Pharmacy:[facility] - [id number] Start Date: 09/30/18 [...] q7days, Disp# 2 mL, Refills: 0, Pharmacy: [facility] #[id number] Start Date: 02/03/24 Status: Ordered zinc (as gluconate) 50 mg oral tablet Start: 05/10/21 8:43:00 AM EDT, See Instructions, 1 tab po daily Start Date: 05/10/21 Status: Ordered Mental Status 03/02/24 Barriers to Learning one year None evide nt Mandatory Health Literacy Documentation Yes Communication Barrier Present No Health Literacy Communication Barriers N ever Primary Language Stateless Problem List Condition Confirmation Course Effective Dates [...] Dates Health Status Cl inical Service Informant Body mass index [BMI] 33.0-33.9, adult Discharge Diagnosis 03/02/24 Non-Specified Crohn's colitis Discharge Diagnosis 03/02/24 Non-Specified Procedures Procedure Date Related Diagnosis Body Site Status Colonoscopy 1, 2 01/15/22 Complete d X-ray of right ankle 3 06/21/20 Co mpleted Colonoscopy 4 08/25/18 Completed Biopsy 5 06/14/18 Completed Flexible sigmoidoscopy 6, 7 06/14/18 Completed EMG/NCS right upper extremity 8 04/27/18 Completed Bilateral tubal ligation 9 03/31/16 Completed section - at term 03/30/16 Completed 10 Completed Dental-Tooth Implants 11 Completed [facility]a Teeth 12 Completed 1Pathology: Polyp, ascending colon, [...] radiculopathy 9Bilateral tubal ligation with Filshie clips. [id number] Vital Signs Most recent to oldest [Reference Range]: 1 Height 172.4 cm (03/02/24 8:00 AM) Patient Weight 98.7 kg (03/02/24 8:00 AM) Body Mass Index 33.21 kg/m2 (03/02/24 8:00 AM) Blood Pressure 118/80mmHg (03/02/24 8:00 AM) Cuff Pulse Pressure 38 mmHg (03/02/24 8:00 AM) BP Location # 1 Left Arm (03/02/24 8:00 AM) Social History Social History Type Response Smoking Status Never smoked cigaret martha Sex Sex Representation Female (finding) Gastroenterology Outpatient Note * RAVEN Wright, Danette Lopez: PERFORM Event Display: Gastroenterology Outpt Note Authored Date: [id number] Chief Complaint Pt here for f/u for crohn's. Pt is taking citrucel and has not seen any bleeding since. History of Present Illness The patient is a pleasant 43 year-oldfemalewho presents today forfollow-up evaluation ofCrohn's colitis.[facility],and past medicalhistoryreviewed. Prior records: 08/25/2018: Colonoscopy notes reviewed performed due to history of chronic diarrhea which demonstrated normal-appearing terminal ileum with multiple semi- sessile nonbleeding polyps found in the transverse and ascending colon which were 5 mm in size. There was a 7 mm polyp in the transverse colon which was sessile removed. Normal mucosa found in the entire colon with biopsies obtained for microscopic colitis. Pathology results are reviewed which demonstrated 1 inflammatory polyp. 09/21/2018: GI office visit notes reviewed from Dr. Copeland. Patient was hospitalized spring [address] scan demonstrated thickened bowel and a sigmoid exam showing mild edema. Patient developed erythema nodosum and high ASO titer with abnormal liver test. Full colonoscopy demonstrated a lot of postinflammatory polyps in the transverse and right colon with confirmation of inflammatory polyp and not an adenomatous polyp. Patient was diagnosed with colonic Crohn's disease as well as plaque psoriasis. Plan was to start Stelara at plaque psoriasis dosing. 12/23/2018: GI office visit notes reviewed. Due to Crohn's flare symptoms, Stelara dosing increased from plaque psoriasis dosing to Crohn's dosing. 05/11/2021: GI OV notes are reviewed from Dr. De 11/21/2021 GI OV: On exam/interview today, the patient presents today for routine follow-up of Crohn's disease. She is a former patient of Dr. Copeland. She reports that about 2 weeks prior to her Stelara dosing, she is having a lot ofjoint pain, fatigue, increase in diarrhea. This has been going on for several months. She did have COVID about 3 weeks ago. Her biggest complaint with the COVID was a headache. Unfortunately her father had a severe reaction toModerna COVID vaccination(heart attack and now on blood thinners). She isnot interested andfurther COVID vaccinationsdue to this reaction. Denies anyfever, chills, unintentional weight loss. Fatigue is noted. She has hadnearly 100 pound weight gain onStelara. Denies any mouth ulcerations, heartburn, reflux, dysphagia, routine use of aspirin or NSAIDs. She uses NSAIDs foras needed headaches. She has noticed some lower abdominal pain after eating. She is having a bowel movement approximately3 times daily which is loose to formed. She does getsome episodes of explosive diarrhea particul arlytowards the end of her injection cycle. She denies melena or hematochezia. Her Stelara injection is actually due today. 01/15/2022: Colonoscopy notes are reviewed performed due to history of Crohn's disease which demonstrated normal-appearing terminal ileum. Area of moderately congested mucosa found in the opening of the ileocecal valve and biopsies obtained for histology. Scattered pseudopolyps at thehepatic flexure. Exam otherwise without abnormality. Pathology results demonstrated active chronic colitis without dysplasia with recommendation for repeat colonoscopy in 4 years (12/2025). 09/08/2022 GI OV:The patient presents today for follow-up ofCrohn's colitis. She has had colonoscopy in the interim since her last office visit. Unfortunately there was a missed office visitin the interimsince her colonoscopy. Colonoscopy results were reviewed with her today. She has hadcontinueddifficulty with diarrhea after meals. She notes that she hasextreme fatiguewith bilateral joint painthroughout her body. Her worstpain is in her bilateral knees, ankles, hands. Denies any fever, chills, unintentional weight loss. No nausea or vomiting, dysphagia, mouth ulcerations, reflux. Infrequent use of NSAIDs, denies aspirin intake. She is havingtroubleswith bilateral lowerextremity edema and follow-up with her primary care physician. She is experiencing some abdominal discomfort aftereatingand requiringthe restroomdue to loose stools.She is having 4-5Bristol type -VII bowel movements per day. Denies melena or hematochezia. She continues compliance with Stelara every 8 weeks with her most recent injection 09/07/2022. 11/28/2022OV ([facility]):patient returns today. She is in follow-up for her Crohn's colitis. Shestates that having transition to her Stelara every4 weeks has been very beneficial. She is now havingBristol type V bowel movements. She does state however that these areincreasingly 10 to 15 minutesafter eating. She states that overall she has noticed the Stelara helping her inflammation. However as she gets close to her shot, which is duein 5 days,she will become sore. Irasema is not experiencing the same level of joint pain that she had been previously. Patient statesthparvin is beginning to focus ondiet and weight loss, because she is just notcomfortablewith where she is. She can no longer be as active as she once was. She has previously ridden horses, hiked, white water rafting. Patient states thatizabela has no outbreak of her psoriasis currentlyon her Stelara. She has never seen a quarter trimmer for her psoriatic arthritis. 12/11/2022 Lab:Fec Rick 42 02/26/2023 OV ([facility]):Patient returns today for 3-month follow-up. She states that until shehad a viral illness just before Nayely was super excited as for the first time in many years she began to have solid stools. Currently with thepostnasal drip and viral symptoms; they have not been quite as solid. She states that she has been exercising 3 days a week as well as walking her dog daily. However she just feels more fatigued each morningand is actually finding herself feeling like she needs an afternoon nap. This is not like her. She states her injection is due tomorrow. She did see rheumatology about 1 month ago. She is overdue for her eye exam which she has annually. She does see the dentist twice a year. Otherwise patient reports that she is doing well and is overall very happy with this new medication. 02/26/2023labs:BMP WNL, magnesium 1.9, vitamin D 14, B12 402, folate 5.4, CRP 1.66H, ESR 33 H, TSH 1.47, ALT 24, T. bili 0.3, alk phos 60, AST 25, WBC 7.82, H&H 13.1/39.7, PLT 323 08/31/2023OV ([facility]):Patient returns today for 6-month follow-up. In the interimof patient's last appointment she began Zepbound,and is currently down 19 pounds in the last 3 months. Sheis happy to state thather stools have returned to normal since a viral illness of her last appointment. She is having a Potrero type IV bowel movement once dailywithout melena, hematochezia,or mucus. She denies nausea, vomiting, heartburnor dysphagia. She has had no abdominal pain to report. She states that she just had her last injectionon August 27. She did unfortunately forget to complete her fecal calprotectin just prior to this injection. She reports no recent pso riasis flaresand has a dermatology appointment scheduled for December. She has hadsome recurrent ecchymosis on her right shinthat issore. She states that she has had this in the pastandthat dermatology had a specific name for it.She continues on her multivitamin with folic acids well as her vitamin D supplementation. 01/19/2024OV ([facility]):Patient returns today for an acute appointment. She states for about 2 weeks she has been feeling more fatigued than normal. She had also been on Zepboundand started tosuffer from constipation. She currently reports a Potrero type I or II bowel movement every otherday for the last several weeks. About 4 days ago she began to have an increased amount of gas. Now yesterday she did have 3 bowel movements and today her stool was on the softer sidelike a Potrero type III. Her Zepbound is due tomorrow. She does report that 2 days ago she noticed BRBPR onthe toilet paperby the following day she washaving a heavierflow of blood rectally and did notice it both on the toilet paper as well as dripping into the toilet bowl. She did not notice it in the stool. She does have a history of hemorrhoids in the past. Her nextStelara injection is this coming Thursday. Her only other changes recently have been a yeast infection to which she was treated with oral Diflucan and her symptoms have resolved. She does not report nausea, vomiting or abdominal pain today. The remainder of herhealth is stable. 03/02/2024OV ([facility]):Patient returns today for 6-month Crohn's colitis for follow-up. She has been using Citrucel dailyand reports significant improvement in her bowel habits. Unfortunately she is currently on an antibiotic for pneumonia and did experience some diarrhea in the last 24 hours. But however prior to this antibiotic use she was having a Potrero type IVbowel movement daily without ongoing BRBPR. She states that she continues to lose weight on her Zepbound. She has absolutely no GI complaints today. She denies nausea, vomiting, dysphagia, abdominal pain, constipation,early satiety, loss of appetite, unintentional weight loss. Patient reports that her antibiotic is for pneumonia that she was diagnosed with after her honeymoon. IBD History - Diagnosis:Crohn's colitis diagnosed 2018; also has plaque psoriasis (has been on Taltz) - Previous treatments: none - Current treatment: Stelara 90 mg q4 weeks - IBD surgeries: none - Extraintestinal manifestations (joint, eye, mouth ulcers, skin lesions): joint discomfort (bilateral hips); psoriasis - Upper GI or Perianal involvement: none - FHx of IBD or CRC:Paternal grandmother with colon cancer (? IBD) - Smoking history:Lifetime smoker - Social history: Alcohol intake about 1-2 times per weekly. Denies recreational drug use includingmarijuana. 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 Travels frequently for work. Unmarried with 2 daughters ages 5 and 10. No further complaints or concerns today. Physical Exam Vitals & Measurements BP:118/80 SpO2:97% HT:172.4cm WT:98.700kg(Dosing) WT:98.7kg BMI:33.21 General:Alert and oriented, No acute distress, appears stated age HENT:Normocephalic, normal hearing Respiratory: Respiration are non-labored, pt speaking in complete sentences,and no evidence of respiratory distress is noted Integumentary:Exposed skin viewable is dry and intact Psychiatric:Cooperative, appropriate mood & affect, Normal judgement Assessment/Plan Body mass index [BMI] 33.0-33.9, adult Crohn's colitis -Patient reports that she obtained her flu vaccine in October2023 and it is up-to-date. -January labs were unremarkableand fecal calprotectin was normal. -Repeat fecal calprotectin and laboratory studies prior to follow-up visit. -Patient has had 1 episode of diarrhea since being on antibiotic, she was provided with C. difficilespecimen collectionkitshould her symptoms progress. - Patient states that she is very compliantwith her current Stelara injections. Patient initiallydiagnosed with Crohn's colitis 08/2018 Most recent colonoscopy:01/15/2022: normal-appearing terminal ileum. Area of moderately congested mucosa found in the opening of the ileocecal valve and biopsies obtained for histology. Scattered pseudopolyps at thehepatic flexure. Exam otherwise without abnormality. Pathology results demonstrated active chronic colitis without dysplasia with recommendation for repeat colonoscopy in 4 years (12/2025). - Recent ALEX negative -Continue routine health maintenance including dermatology,ophthalmology, and dental. Constipation/BRBPR: Patient complained of constipation and BRBPRat prior appointment. She has since added Citruceland followedbowel regimenthat has resolved her symptoms. -BRBPR resolvedon bowel regimen.Constipation is also currently resolved on fiber supplementation and bowel regimen. GI follow up 6 months, sooner if needed. I have spent 35 minutes in evaluation, education and documentation of this pt in both face to face and non-face to face activities. Problem List/Past Medical History Ongoing Anemia BRBPR [...] 2 puff, inhaled, qid, PRN, 6 refills amoxicillin-clavulanate(Augmentin 875 mg-125 mg oral tablet), 1 tab, PO, q12h ascorbic acid(Vitamin C 500 mg oral tablet), 1000 mg= 2 tab, PO, Daily azelastine nasal(Astelin 137 mcg/inh nasal spray), 1 spray, each nostril, bid, 1 refills benzonatate(Tessalon Perles 100 mg oral capsule), 100 mg= 1 cap, PO, tid doxycycline(doxycycline hyclate 100 mg oral capsule), 100 mg= 1 cap, PO, bid elderberry fluconazole(Diflucan 150 mg oral tablet), 150 mg= 1 tab, PO, ONCE methylcellulose(Citrucel), See Instructions multivitamin, 1 tab, PO, Daily multivitamin(Vitamin B Complex oral capsule), 1 cap, PO, Daily predniSONE(predniSONE 20 mg oral tablet), 40 mg= 2 tab, PO, Daily tirzepatide(Zepbound Pen 10 mg/0.5 mL subcutaneous solution), 10 mg, subQ, q7days triamcinolone topical(triamcinolone 0.1% topical cream), 1 appl, topical, bid, 2 refills ustekinumab(Stelara Prefilled Syringe 90 mg/mL SQ solution), 1 syringe, subQ, [id number] zinc gluconate(zinc (as gluconate) 50 mg oral tablet), See Instructions Allergies Glutensfood sensitivity Vicodinvomiting, cramps codeineitchy painful rash Social History Smoking Status Never smoked cigarettes Alcohol Use:Current Type:Wine Frequency:1-2 times per week Employment/School Status:Employed Description:works at [employer] Home/Environment Lives with:Children, Spouse Feels unsafe at [...] next year) OverDue Lipid Screening due02/24/22and every Due Adult COVID-19 Vaccination due03/02/24Unknown Frequency Adult Social Determinants of Health Screening due03/02/24Unknown Frequency Breast Cancer Screening due03/02/24Unknown Frequency Cervical Cancer Screening due03/02/24Unknown Frequency Due In Future Adult Influenza Vaccine not due until08/23/24and every 1year Satisfied(in the past 1 year) Satisfied Adult Influenza Vaccine on12/28/23.Satisfied by BRONWYN Martin Natalie Body Mass Index on03/02/24.Satisfied by BRONWYN Collins Erin Electronic Signature on File Electronically Reviewed/Signed by: Danette Wright PA-C Author Signature Dt/Tm:03/02/2024 01:06 PM Division of Gastroenterology [place] Patient Care team information Care Team Personnel Name: PHUONG Burciaga Tara Position: Nurse Pract - Family Med Member Role: Primary Care Provider Address: [address] [place] [id number] [place] Care Team Related Persons Name: AGUEDA RODRIGUEZ Name: PITO SILVESTRE"
--- OUTSIDE RECORDS SUMMARY | 2024-03-09 12:18 | External Medical Summary | Continuity of Care Document ---
Author Name Unknown Organization [facility] [address] Address [address] [place], [place] [id number] Care Team Providers Care Lighting Director Name Role Phone Elaine Burciaga Primary Care Physician [phone] [id number] Date(s): 01/26/24 - 01/26/24 [facility] [address] [facility] [address] [facility] [place], [place] [phone] Encounter Diagnosis Crohn's disease of large intestine without complications(Final) - Hemorrhage of anus and rectum(Final) - Discharge Disposition: Home or Self Care [...] Disp# 1 each, Refills: 1, [facility]: [id number] Start Date: 05/08/22 Status: Ordered elderberry Start: 05/10/21 8:43:00 AM EDT, 1 tab po daily Start Date: 05/10/21 Status: Ordered multivitamin Start: 12/23/18 8:26:00 AM EDT, 1 tab, PO, Daily Start Date: 12/23/18 Status: Ordered ProAir HFA 90 mcg/inh inhalation aerosol Start: 05/08/22 1:48:00 PM EDT, 2 puff, inhaled, qid, Disp# 1 each, Refills: 6, PRN: as needed for wheezing, [facility]acy: [facility] #[id number] Start Date: 05/08/22 Status: Ordered Stelara Prefilled Syringe 90 mg/mL SQ solution Start: 12/16/23 9:04:00 AM EDT, 1 syringe, subQ, [id number], Disp# 1 mL, Refills: 0, [facility] Pen 10 mg/0.5 mL subcutaneous solution Start: 01/13/24 8:30:00 AM EST, 10 mg =, subQ, q7days, Disp# 2 mL, [id number] Start Date: 01/13/24 Status: Ordered zinc (as gluconate) 50 mg [...] Confirmed Active Vitamin D deficiency Confirmed Active Procedures Procedure Date Related Diagnosis Body Site Status Colonoscopy 1, 2 01/15/22 Complete d X-ray of right ankle 3 06/21/20 Co mpleted Colonoscopy 4 08/25/18 Completed Biopsy 5 06/14/18 Completed Flexible sigmoidoscopy 6, 7 06/14/18 Completed EMG/NCS right upper extremity 8 04/27/18 Completed Bilateral tubal ligation 9 03/31/16 Completed section - at term 03/30/16 Completed 10 Completed Dental-Tooth Implants 11 Completed [place] Teeth 12 Completed 1Pathology: Polyp, ascending colon, [...] radiculopathy 9Bilateral tubal ligation with Filshie clips. [id number] Results Laboratory List Name Date C Reactive Protein, Quantitation (CRP QU ANTITATION) 01/26/24 Complete Blood Count (CBC) 01/26/24 Comprehensive Metabolic Panel (COMP META B PANEL) 01/26/24 Erythrocyte Sedimentation Rate (SEDIMENT ATION RATE) 01/26/24 Most recent to oldest [Reference Range]: 1 CReacProt [<0.50 mg/dL] 1.13 mg/dL *HI* (01/26/24 10:46 AM) eGFR CKD-EPI [>60 mL/min/1.73 m2] >90 mL /min/1.73 m2 1 (01/26/24 10:46 AM) Estimated CrCl 126.37 mL/min (01/26/24 11:17 AM) MPV [9.0-12.2 fL] 9.3 fL (01/26/24 10:46 AM) RDW [11.5-14.2 %] 13.3 % (01/26/24 10:46 AM) Anion Gap [5-14 mmol/L] 8 mmol/L (01/26/24 10:46 AM) Alb [3.5-5.0 g/dL] 4.4 g/dL (01/26/24 10:46 AM) Alk Phos [38-126 unit/L] 44 unit/L (01/26/24 10:46 AM) ALT [<35 unit/L] 20 unit/L (01/26/24 10:46 AM) AST [15-46 unit/L] 21 unit/L (01/26/24 10:46 AM) BUN [7-20 mg/dL] 18 mg/dL (01/26/24 10:46 AM) Ca [8.4-10.2 mg/dL] 9.6 mg/dL (01/26/24 10:46 AM) Cl- [96-107 mmol/L] 105 mmol/L (01/26/24 10:46 AM) HCO3 [22-30 mmol/L] 26 mmol/L (01/26/24 10:46 AM) Cret [0.60-1.00 mg/dL] 0.72 mg/dL (01/26/24 10:46 AM) ESR [0-30 mm/hr] 13 mm/hr 2 (01/26/24:46 AM) Glu [74-106 mg/dL] 85 mg/dL (01/26/24 10:46 AM) Hct [35-44 %] 42.5 % (01/26/24 10:46 AM) Hgb [11.7-15.0 g/dL] 14.0 g/dL (01/26/24 10:46 AM) K [3.5-5.1 mmol/L] 4.1 mmol/L (01/26/24 10:46 AM) MCH [28-33 pg] 29.7 pg (01/26/24 10:46 AM) MCHC [32-36 g/dL] 32.9 g/dL (01/26/24 10:46 AM) MCV [81-96 fL] 90.0 fL (01/26/24 10:46 AM) Na [137-145 mmol/L] 139 mmol/L (01/26/24 10:46 AM) Plts [150-350 K/uL] 359 K/uL *HI* (01/26/24 10:46 AM) RBC [3.90-5.00 M/uL] 4.72 M/uL (01/26/24 10:46 AM) T Bili [0.2-1.3 mg/dL] 0.4 mg/dL (01/26/24 10:46 AM) Prot [6.3-8.2 g/dL] 8.4 g/dL *HI* (01/26/24 10:46 AM) WBC [4.0-10.4 K/uL] 5.81 K/uL (01/26/24 10:46 AM) 1Result Comment: Testing Performed By: Dept of Pathology [facility] [address], [address] [facility] [address] 2Result Comment: Testing Performed By: Dept of Pathology [facility] [address], [address] [facility] [place] [address] Social History Social History Type Response Smoking Status Never smoked cigaret martha Sex Sex Representation Female (finding) Patient Care team information Care Team Personnel Name: PHUONG Burciaga Tara Position: Nurse Pract - Family Med Member Role: Primary Care Provider Address: [address] [place] [address], [place] [address] [place] Care Team Related Persons Name: AGUEDA RODRIGUEZ Name: PITO SILVESTRE
--- OUTSIDE RECORDS SUMMARY | 2024-03-09 12:18 | External Medical Summary | Continuity of Care Document ---
Author Name Unknown Organization [facility] [address] [facility] [address] [id number] Care Team Providers Care Unit Leader Name Role Phone Elaine Burciaga Primary Care Physician [phone] [id number] Date(s): 12/30/23 - 12/30/23 [facility] [address] [id number] Encounter Diagnosis Psoriasis vulgaris(Discharge Diagnosis) - 12/30/23 Multiple nevi(Discharge Diagnosis) - 12/30/23 Discharge Disposition: Home or Self Care Attending Physician: MD Hu Sara B Allergies, Adverse Reactions, Alerts Substance Criticality Severity Reaction Reaction Severity Status codeine itchy painful rash A ctive Vicodin vomiting, cramps Act roger Glutens food sensitivity Act roger Assessment and Plan Extracted from: Title:Dermatology Office Visit Note Author:Abundio dickson MD, Sara B Date:12/30/23 1.Psoriasis vulgaris Clear. Continue Stelara. This is ordered by her GI doctor. It is done well for her. 2.Multiple nevi Chronic, within normal limits today 3. Joint pain. Has improved a lot with the weight loss which is good to hear nevertheless I think it is important for her to get an opinion from rheumatology onpossible psoriatic arthritis. Shewill reschedule her appointment. Immunizations Given and Recorded Vaccine Date Status [...] bid, Disp# 1 each, Refills: 1, [id number] Start Date: 05/08/22 Status: Ordered elderberry Start: 05/10/21 8:43:00 AM EDT, 1 tab po daily Start Date: 05/10/21 Status: Ordered multivitamin Start: 12/23/18 8:26:00 AM EDT, 1 tab, PO, Daily Start Date: 12/23/18 Status: Ordered ProAir HFA 90 mcg/inh inhalation aerosol Start: 05/08/22 1:48:00 PM EDT, 2 puff, inhaled, qid, Disp# 1 each, Refills: 6, PRN: as needed for wheezing, [facility]: [facility] #[id number] Start Date: 05/08/22 Status: Ordered Stelara Prefilled Syringe 90 mg/mL SQ solution Start: 12/16/23 9:04:00 AM EDT, 1 syringe, subQ, [id number], Disp# 1 mL, Refills: 0, [facility] [...] 2 mL, Refills: 0, [facility]acy [facility] #[id number] Start Date: 11/20/23 Status: Ordered Zepbound Pen 7.5 mg/0.5 mL subcutaneous solution Start: 12/15/23 11:12:00 AM EDT, 7.5 mg =, subQ, q7days, Disp# 2 mL, Refills: 0, [id number] Start Date: 12/15/23 Status: Ordered zinc (as gluconate) 50 mg oral tablet Start: 05/10/21 8:43:00 AM EDT, See Instructions, 1 tab po daily Start Date: 05/10/21 Status: Ordered Mental Status 12/30/23 Barriers to Learning one year None evide nt Mandatory Health Literacy Documentation Yes Health Literacy Communication Barriers N ever Primary Language Azeri Problem List Condition Confirmation Course Effective Dates [...] Dates Health Status Cl inical Service Informant Multiple nevi Discharge Diagnosis 12/30/23 Psoriasis vulgaris Discharge Diagnosis 12/30/23 Procedures Procedure Date Related Diagnosis Body Site Status Colonoscopy 1, 2 01/15/22 Complete d X-ray of right ankle 3 06/21/20 Co mpleted Colonoscopy 4 08/25/18 Completed Biopsy 5 06/14/18 Completed Flexible sigmoidoscopy 6, 7 06/14/18 Completed EMG/NCS right upper extremity 8 04/27/18 Completed Bilateral tubal ligation 9 03/31/16 Completed section - at term 03/30/16 Completed 10 Completed Dental-Tooth Implants 11 Completed [place] Teeth 12 Completed 1Pathology: Polyp, ascending colon, [...] radiculopathy 9Bilateral tubal ligation with Filshie clips. [id number] Social History Social History Type Response Smoking Status Never smoked cigaret martha Sex Sex Representation Female (finding) Dermatology Outpatient Note * MD Fritz, Amarilis Allred: PERFORM Event Display: Dermatology Outpt Note Authored Date: [id number] Chief Complaint skin check History of Present Illness Patient comes in today for skin check. She has psoriasis please see previous history she had a diagnosis of Crohn's after starting Taltz, was switched to Stelara afterwards which controlled her bowel disease and her skin. She has been immunosuppressed because of the Stelara. [1] She also has a history of erythema nodosum but it has been quiescent. She states her psoriasis has been completely clear. His her joint pain is actually much better because she has lost 41 pounds on Zepbound. She never saw the systems technician because something came up at work. I have requested that she go ahead and reschedule that for their opinion. Physical Exam Gen: Well appearing patient, no acute distress. Alert and oriented x3. Good mood. Skin examination completed of face, eyelids, scalp, hair, lips, ears, neck, chest, back, abdomen,upper and lower extremities bilaterally including hands, feet, fingers and toes, fingernails and toenails, pt declinedSara buttocks and groin. Patient has scattered less than 6mm in diameter wellcircumscribed round brown macular nevi within normal limits under dermoscopy.no active psoriasisi Assessment/Plan 1.Psoriasis vulgaris Clear. Continue Stelara. This is ordered by her GI doctor. It is done well for her. 2.Multiple nevi Chronic, within normal limits today 3. Joint pain. Has improved a lot with the weight loss which is good to hear nevertheless I think it is important for her to get an opinion from rheumatology onpossible psoriatic arthritis. Heydi reschedule her appointment. Problem List/Past Medical History Ongoing Anemia Crohn's [...] Complex oral capsule), 1 cap, PO, Daily tirzepatide(Zepbound Pen 7.5 mg/0.5 mL subcutaneous solution), 7.5 mg, subQ, q7days triamcinolone topical(triamcinolone 0.1% topical cream), 1 appl, topical, bid, 2 refills unlisted medication(ZEPBOUND 7.5 MG/0.5 ML PEN), 7.5 mg, subQ, q7days ustekinumab(Stelara Prefilled Syringe 90 mg/mL SQ solution), 1 syringe, subQ, [id number] zinc gluconate(zinc (as gluconate) 50 mg oral tablet), See Instructions Allergies Glutensfood sensitivity Vicodinvomiting, cramps codeineitchy painful rash Social History Smoking Status Never smoked cigarettes Alcohol Use:Current Type:Wine Frequency:1-2 times per week Employment/School Status:Employed Description:works at [employer] Home/Environment Lives with:Children, Spouse Feels unsafe at [...] PGF, Age: 78 Years, Cause: Alzheimers, Parkinson's [1]Office Visit Note; MD Fritz, Amarilis Allred 12/25/2022 14:03 EDT Electronic Signature on File Electronically Reviewed/Signed by: Amarilis Hu MD Author Signature Dt/Tm:12/30/2023 08:37 AM Department of Dermatology [facility] Patient Care team information Care Team Personnel Name: PHUONG Burciaga Tara Position: Nurse Pract - Family Med Member Role: Primary Care Provider Address: [address] [place] [address] Care Team Related Persons Name: AGUEDA RODRIGUEZ Name: PITO SILVESTRE"
--- OUTSIDE RECORDS SUMMARY | 2024-03-09 12:18 | External Medical Summary | Continuity of Care Document ---
Author Name Unknown Organization [address] [id number] Care Team Providers Care Fuel Quality Tech Name Role Phone Elaine Burciaga Primary Care Physician [phone] [id number] Date[facility]s): 11/27/23 - 11/27/[address] [address] [phone] Encounter Diagnosis Body mass index [BMI] 34.0-34.9, adult(Discharge Diagnosis) - 11/27/23 Screening for lipid disorders(Discharge Diagnosis) - 11/27/23 Discharge Disposition: Home or Self Care Attending Physician: PHUONG Burciaga Tara Referring Physician: PHUONG Burciaga Tara Allergies, Adverse Reactions, Alerts Substance Criticality Severity Reaction Reaction Severity Status codeine itchy painful rash A ctive Vicodin vomiting, cramps Act roger Glutens food sensitivity Act roger Assessment and Plan Extracted from: Title:follow up Author:PHUONG Burciaga Tara Date: 1.Body mass index [BMI] 34 .0-34.9, adult Acute/Chronic: chronic Goal:Resolution/ control Status:stable/controlled Data: records/pt report Plan: Contd on zepbound. Padmahaade had approx 35lb weight loss. Her pharmacy should have 10mg later this month so will rx atthat time. Contd with diet and exercise. 2.Screening for lipid disorders Acute/Chronic: chronic Goal:Resolution/ control Status:stable/controlled Data: records/pt report Plan: Will order cmp andlipids and schedule cpe fornext visit. time spent reviewing chart, face to face visit, ordersand documentation:24 min Immunizations Given and Recorded Vaccine Date [...] bid, Disp# 1 each, Refills: 1, [id number] Start Date: 05/08/22 Status: Ordered elderberry Start: 05/10/21 8:43:00 AM EDT, 1 tab po daily Start Date: 05/10/21 Status: Ordered multivitamin Start: 12/23/18 8:26:00 AM EDT, 1 tab, PO, Daily Start Date: 12/23/18 Status: Ordered ProAir HFA 90 mcg/inh inhalation aerosol Start: 05/08/22 1:48:00 PM EDT, 2 puff, inhaled, qid, Disp# 1 each, Refills: 6, PRN: as needed for wheezing, [facility]: [facility] #[id number] Start Date: 05/08/22 Status: Ordered Stelara Prefilled Syringe 90 mg/mL SQ solution Start: 11/20/23 1:21:00 PM EDT, 1 syringe, subQ, [id number], Disp# 1 mL, Refills: 0, [facility] Start Date: 11/20/23 Status: Ordered triamcinolone 0.1% topical cream Start: 09/30/18 4:44:30 PM EDT, 1 appl, topical, bid, Disp# 454 g, Refills: 2, To rash BID, Pharmacy:[facility] [id number] Start Date: 09/30/18 Status: Ordered Vitamin B [...] 2 mL, Refills: 0, [facility]acy [facility] #[id number] Start Date: 11/20/23 Status: Ordered Zepbound 7.5 mg/0.5 mL subcutaneous solution Start: 10/22/23 6:51:00 PM EDT, See Instructions, Disp# 2 mL, Refills: 0, inject 7.5 milligrams subcutaneously every 7 days, Pharmacy: [facility] #[id number] Start Date: 10/22/23 Status: Ordered zinc (as gluconate) 50 mg oral tablet Start: 05/10/21 8:43:00 AM EDT, See Instructions, 1 tab po daily Start Date: 05/10/21 Status: Ordered Mental Status 11/27/23 Barriers to Learning one year None evide nt Mandatory Health Literacy Documentation Yes Health Literacy Communication Barriers N ever Primary Language Lao Problem List Condition Confirmation Course Effective Dates [...] inical Service Informant Body mass index [BMI] 34.0-34.9, adult Discharge Diagnosis 11/27/23 Non-Specified Screening for lipid disorders Discharge Diagnosis 11/27/23 Non-Specified Procedures Procedure Date Related Diagnosis Body Site Status Colonoscopy 1, 2 01/15/22 Complete d X-ray of right ankle 3 06/21/20 Co mpleted Colonoscopy 4 08/25/18 Completed Biopsy 5 06/14/18 Completed Flexible sigmoidoscopy 6, 7 06/14/18 Completed EMG/NCS right upper extremity 8 04/27/18 Completed Bilateral tubal ligation 9 03/31/16 Completed section - at term 03/30/16 Completed 10 Completed Dental-Tooth Implants 11 Completed [place] Teeth 12 Completed 1Pathology: Polyp, ascending colon, [...] radiculopathy 9Bilateral tubal ligation with Filshie clips. [id number] Vital Signs Most recent to oldest [Reference Range]: 1 Height 172.4 cm (11/27/23 7:53 AM) Patient Weight 102.1 kg (11/27/23 7:53 AM) Body Mass Index 34.35 kg/m2 (11/27/23 7:53 AM) Temperature [36.5-37.9 DegC] 37.0 DegC (11/27/23 7:53 AM) Heart Rate 92 bpm (11/27/23 7:53 AM) Respiratory Rate 18 br/min (11/27/23 7:53 AM) Blood Pressure 111/70mmHg (11/27/23 7:53 AM) Cuff Pulse Pressure 41 mmHg (11/27/23 7:53 AM) Social History Social History Type Response Smoking Status Never smoked cigaret martha Sex Sex Representation Female (finding) [facility] Outpt Note * PHUONG Burciaga Tara: PERFORM Event Display: [facility] Outpt Note Authored Date: [id number] Chief Complaint 3 month Follow Up. Weight management. Does experience some nausea in the morning if she takes zepbound the night prior. States nausea goes away afew days after taking. History of Present Illness Follow up on weight loss. On azepbound. Has somenausea the day after injection. Should be able to get 10mg later this month. Lost approx 35lbs. Feeling better, Review of Systems Constitutional: No fever, chills, sweats Pulmonary: No shortness of breath, dyspnea with exertion, cough, hemoptysis, wheezing, chest pain. Cardiovascular: No chest pain, palpitations, syncope, edema, cyanosis, claudication, orthopnea. GI: No, vomiting, diarrhea, melena, hematochezia, change in appetite, abdominal pain, change in bowel habits or stools Psychiatric: No depression, anxiety Physical Exam Vitals & Measurements T:37.0C HR:92(Monitored) RR:18 BP:111/70 SpO2:98% HT:172.4cm WT:102.100kg(Dosing) WT:102.1kg BMI:34.35 PHQ2 Data(Data Documented on:11/27/2023 07:53) Emotional health assessment NEGATIVE head- normocephalic eyes- PERRLA , conjunctiva clear, sclera white, anicteric, Pulmonary- chest expansion symmetric, CTA (clear to auscultation), eupnea, no adventitious sounds (rales, crackles, wheezes) CV (cardiovascular)- RRR no m/r/g (systolic ejection murmur, rubs, gallops), good peripheral perfusion Neuro:Alert, Oriented Psy:no homicidal or suicidal ideations. Assessment/Plan 1.Body mass index [BMI] 34.0-34.9, adult Acute/Chronic: chronic Goal:Resolution/ control Status:stable/controlled Data: records/pt report Plan:Contd on zepbound. Yakelin had approx 35lb weight loss. Her pharmacy should have 10mg laterthis month so will rx atthat time. Contd with diet and exercise. 2.Screening for lipid disorders Acute/Chronic: chronic Goal:Resolution/ control Status:stable/controlled Data: records/pt report Plan:Will order cmp andlipids and schedule cpe fornext visit. time spent reviewing chart, face to face visit, ordersand documentation:24 min Problem List/Past Medical History Ongoing Anemia [...] oral capsule), 1 cap, PO, Daily tirzepatide(Zepbound 7.5 mg/0.5 mL subcutaneous solution), See Instructions triamcinolone topical(triamcinolone 0.1% topical cream), 1 appl, topical, bid, 2 refills unlisted medication(ZEPBOUND 7.5 MG/0.5 ML PEN), 7.5 mg, subQ, q7days ustekinumab(Stelara Prefilled Syringe 90 mg/mL SQ solution), 1 syringe, subQ, [id number] zinc gluconate(zinc (as gluconate) 50 mg oral tablet), See Instructions Allergies Glutensfood sensitivity Vicodinvomiting, cramps codeineitchy painful rash Social History Smoking Status Never smoked cigarettes Alcohol Use:Current Type:Wine Frequency:1-2 times per week Employment/School Status:Employed Description:works at [employer] Home/Environment Lives with:Children, Spouse Feels unsafe at [...] Health Status Family Member(s) Family Member(s) Relationship: DEBORAH, Age: 78 Years, Cause: Alzheimers, Parkinson's Immunizations [...] 1826day Adult Influenza Vaccine due08/23/23and every 1year Due Adult COVID-19 Vaccination due11/27/23Unknown Frequency Adult Social Determinants of Health Screening due11/27/23Unknown Frequency Breast Cancer Screening due11/27/23Unknown Frequency Cervical Cancer Screening due11/27/23Unknown Frequency Satisfied(in the past 1 year) Satisfied Adult Influenza Vaccine on02/26/23.Satisfied by BRONWYN Rios Amber Body Mass Index on11/27/23.Satisfied by BRONWYN Cristobal Kirsten Electronic Signature on File Electronically Reviewed/Signed by: PHUONG Patel Author Signature Dt/Tm:11/27/2023 08:49 AM Department of Family Medicine TB Patient Care team information Care Team Personnel Name: PHUONG Burciaga Tara Position: Nurse Pract - Family Med Member Role: Primary Care Provider Address: [address] [place] [address] [place] Care Team Related Persons Name: AGUEDA RODRIGUEZ Name: PITO SILVESTRE"
--- OUTSIDE RECORDS SUMMARY | 2024-03-09 12:18 | External Medical Summary | Continuity of Care Document ---
Author Name Unknown Organization [place] [address] [facility] [address] [phone] Care Team Providers Care [place] Driving Name Role Phone Elaine Burciaga Primary Care Physician [phone] [id number] Date(s): 01/19/24 - 01/19/24 [place] [address] [address] [phone] Encounter Diagnosis Body mass index [BMI] 34.0-34.9, adult(Discharge Diagnosis) - 01/19/24 Crohn's colitis(Discharge Diagnosis) - 01/19/24 Constipation(Discharge Diagnosis) - 01/19/24 BRBPR (bright red blood per rectum)(Discharge Diagnosis) - 01/19/24 Discharge Disposition: Home or Self Care Attending Physician: RAVEN Wright Kelli Jo Allergies, Adverse Reactions, Alerts Substance Criticality Severity Reaction Reaction Severity Status codeine itchy painful rash A ctive Vicodin vomiting, cramps Act roger Glutens food sensitivity Act roger Assessment and Plan Extracted from: Title:Office Visit Note Author:RAVEN Wright Kell i Jo Date:01/19/24 1.Constipation 2.BRBPR (bright red blood per rectum) Patient presents today for new complaint of constipation and BRBPR since starting Zepbound. -I am suspicious that patient's BRBPR is from a history of hemorrhoids with her recent constipation. I do not feel that this is a flare of her Crohn's colitis but willcheck with a fecal calprotectin at this time. -I have discussed with patientbowel regimen to include 1 teaspoon of Citrucel daily, increased water consumption, and MiraLAX in her morning tea tapering to effect. -If her fecal calprotectin should be extremely elevated, would recommend either CTE/MRE orsooner colonoscopy. Would also treat forflare with oral steroids. - Update CBC, CMP, ESR, and CRP. Crohn's colitis HX not addressed today: - Patient states that she is very compliantwith her current Stelara injections. -02/26/2023labs:BMP WNL, magnesium 1.9, vitamin D 14, B12 402, folate 5.4, CRP 1.66H, ESR 33 H, TSH 1.47, ALT 24, T. bili 0.3, alk phos 60, AST 25, WBC 7.82, H&H 13.1/39.7, PLT 323 Patient initiallydiagnosed with Crohn's colitis 08/2018 Most [...] routine health maintenance including dermatology,ophthalmology, and dental. -Patient did not complete fecal calprotectin prior to June injection for today's follow-up, recommendproviding the stool sample just prior to her next injection. GI follow up as scheduled, sooner if needed. I have spent 28minutes in evaluation, education and documentation of this [...] Disp# 1 each, Refills: 1, Pharmacy: [facility] #[id number] Start Date: 05/08/22 Status: Ordered elderberry Start: 05/10/21 8:43:00 AM EDT, 1 tab po daily Start Date: 05/10/21 Status: Ordered multivitamin Start: 12/23/18 8:26:00 AM EDT, 1 tab, PO, Daily Start Date: 12/23/18 Status: Ordered ProAir HFA 90 mcg/inh inhalation aerosol Start: 05/08/22 1:48:00 PM EDT, 2 puff, inhaled, qid, Disp# 1 each, Refills: 6, PRN: as needed for wheezing, Pharmacy: [facility] #[id number] Start Date: 05/08/22 Status: Ordered Stelara Prefilled Syringe 90 mg/mL SQ solution Start: 12/16/23 9:04:00 AM EDT, 1 syringe, subQ, [id number], Disp# 1 mL, Refills: 0, Pharmacy: [facility] Start Date: 12/16/23 Status: Ordered triamcinolone 0.1% topical cream Start: 09/30/18 4:44:30 PM EDT, 1 appl, topical, bid, Disp# 454 g, Refills: 2, To rash BID, Pharmacy:[facility] - [id number] Start Date: 09/30/18 Status: Ordered Vitamin B [...] =, subQ, q7days, Disp# 2 mL, [facility]acy: [facility] #[id number] Start Date: 01/13/24 Status: Ordered zinc (as gluconate) 50 mg oral tablet Start: 05/10/21 8:43:00 AM EDT, See Instructions, 1 tab po daily Start Date: 05/10/21 Status: Ordered Mental Status 01/19/24 Barriers to Learning one year None evide nt Mandatory Health Literacy Documentation Yes Health Literacy Communication Barriers N ever Primary Language Guinean Problem List Condition Confirmation Course Effective Dates [...] Effective Dates Health Status Clinical Service Informant Crohn's colitis Discharge Diagnosis 01/19/24 Non-Specified BRBPR (bright red blood per rectum) Discharge Diagnosis 01/19/24 Non-Specified Constipation Discharge Diagnosis 01/19/24 Non-Specified Body mass index [BMI] 34.0-34.9, adult Discharge Diagnosis 11/26/24 Non-Specified Procedures Procedure Date Related Diagnosis Body [...] radiculopathy 9Bilateral tubal ligation with Filshie clips. [id number] Vital Signs Most recent to oldest [Reference Range]: 1 Height 172.4 cm (01/19/24 9:43 AM) Patient Weight 101.2 kg (01/19/24 9:43 AM) Body Mass Index 34.05 kg/m2 (01/19/24 9:43 AM) Temperature [36.5-37.9 DegC] 36.8 DegC (01/19/24 9:43 AM) Heart Rate 92 bpm (01/19/24 9:43 AM) Respiratory Rate 18 br/min (01/19/24 9:43 AM) Blood Pressure 119/80mmHg (01/19/24 9:43 AM) Cuff Pulse Pressure 39 mmHg (01/19/24 9:43 AM) Social History Social History Type Response Smoking Status Never smoked cigaret martha Sex Sex Representation Female (finding) Gastroenterology Outpatient Note * RAVEN Wright, Danette Lopez: PERFORM Event Display: Gastroenterology Outpt Note Authored Date: [id number] Chief Complaint Noticed blood when wiping after BM last 2 days. C/O fatigue for last 2 weeks. Excessive flatulence.Noticed Stools have been hard since starting zepbound. History of Present Illness The patient is a pleasant 43 year-oldfemalewho presents today forfollow-up evaluation ofCrohn's colitis.[facility] medical[facility]. Prior records: 08/25/2018: [...] with her most recent injection 09/07/2022. 11/28/2022OV ([facility]):patient returns today. She is in follow-up for [...] her Stelara. She has never seen a data integrity specialist for her psoriatic arthritis. 12/11/2022 Lab:Fec Rick 42 02/26/2023 OV ([facility]):Patient returns today for 3-month follow-up. She states [...] her last appointment. She is having a [place] type IV bowel movement once dailywithout melena, [...] tosuffer from constipation. She currently reports a [place] type I or II bowel movement every otherday for the last several weeks. About 4 days ago she began to have an increased amount of gas. Now yesterday she did have 3 bowel movements and today her stool was on the softer sidelike a [place] type III. Her Zepbound is due tomorrow. [...] today. The remainder of herhealth is stable. IBD History - Diagnosis:Crohn's colitis diagnosed 2019; also has plaque psoriasis (has been on [...] drug use includingmarijuana. 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 Travels frequently for work. Unmarried with 2 daughters ages 5 and 10. No further complaints or concerns today. Physical Exam Vitals & Measurements T:36.8C HR:92(Monitored) RR:18 BP:119/80 SpO2:97% HT:172.4cm WT:101.200kg(Dosing) WT:101.2kg BMI:34.05 General:Alert and oriented, No acute distress, appears stated age HENT:Normocephalic, normal hearing Respiratory: Respiration are non-labored, pt speaking in complete sentences,and no evidence of respiratory distress is noted Integumentary:Exposed skin viewable is dry and intact Psychiatric:Cooperative, appropriate mood & affect, Normal judgement Assessment/Plan 1.Constipation 2.BRBPR (bright red blood per rectum) Patient presents today for new complaint of constipation and BRBPR since starting Zepbound. -I am suspicious that patient's BRBPR is from a history of hemorrhoids with her recent constipation. I do not feel that this is a flare of her Crohn's colitis but willcheck with a fecal calprotectin at this time. -I have discussed with patientbowel regimen to include 1 teaspoon of Citrucel daily, increased water consumption, and MiraLAX in her morning tea tapering to effect. -If her fecal calprotectin should be extremely elevated, would recommend either CTE/MRE orsooner colonoscopy. Would also treat forflare with oral steroids. - Update CBC, CMP, ESR, and CRP. Crohn's colitis HX not addressed today: - Patient states that she is very compliantwith her current Stelara injections. -02/26/2023labs:BMP WNL, magnesium 1.9, vitamin D 14, B12 402, folate 5.4, CRP 1.66H, ESR 33 H,TSH 1.47, ALT 24, T. bili 0.3, alk phos 60, AST 25, WBC 7.82, H&H 13.1/39.7, PLT 323 Patient initiallydiagnosed with Crohn's colitis 08/2018 Most [...] routine health maintenance including dermatology,ophthalmology, and dental. -Patient did not complete fecal calprotectin prior to June injection for today's follow-up, recommendproviding the stool sample just prior to her next injection. GI follow up as scheduled, sooner if needed. I have spent 28minutes in evaluation, education and documentation of this [...] capsule), 1 cap, PO, Daily tirzepatide(Zepbound Pen 10 mg/0.5 mL subcutaneous solution), 10 mg, subQ, q7days triamcinolone topical(triamcinolone 0.1% topical cream), 1 appl, topical, bid, 2 refills ustekinumab(Stelara Prefilled Syringe 90 mg/mL SQ solution), 1 syringe, subQ, [id number] zinc gluconate(zinc (as gluconate) 50 mg oral tablet), See Instructions Allergies Glutensfood sensitivity Vicodinvomiting, cramps codeineitchy painful rash Social History Smoking Status Never smoked cigarettes Alcohol Use:Current Type:Wine Frequency:1-2 times per week Employment/School Status:Employed Description:works at [employer] Home/Environment Lives with:Children, Spouse Feels unsafe at [...] Screening due02/24/22and every Due Adult COVID-19 Vaccination due01/19/24Unknown Frequency Adult Social Determinants of Health Screening due01/19/24Unknown Frequency Breast Cancer Screening due01/19/24Unknown Frequency Cervical Cancer Screening due01/19/24Unknown Frequency Due In Future Adult Influenza Vaccine not due until08/22/24and every 1year Satisfied(in the past 1 year) Satisfied Adult Influenza Vaccine on12/28/23.Satisfied by BRONWYN Martin Natalie Body Mass Index on01/19/24.Satisfied by BRONWYN Cristobal Kirsten Electronic Signature on File CC: PHUONG Patel [address] [place] [address] UBALDO [id number] Electronically Reviewed/Signed by: Danette Wright PA-C Author Signature Dt/Tm:01/19/2024 10:28 AM Division of Gastroenterology [facility] Patient Care team information Care Team Personnel Name: PHUONG Burciaga Tara Position: Nurse Pract - Family Med Member Role: Primary Care Provider Address: [address] [place] [address], [place] [address] [place] Care Team Related Persons Name: AGUEDA RODRIGUEZ Name: PITO SILVESTRE"
[2024-03-09] MEDS: cefTRIAXone SODIUM 2,000 MG/50 ML BAG IV STA (12:35)
[2024-03-09] MEDS: guaiFENesin 600 MG TABCR PO STA (12:43)
[2024-03-09 13:43] LABS: Ferritin 94.7 ng/ml (8-388)
[2024-03-09] MEDS ORDERED: ACETAMINOPHEN 325 MG TAB PO PRN (14:39)
[2024-03-09] MEDS ORDERED: MELATONIN 3 MG TAB PO PRN (14:39)
[2024-03-09] MEDS: ENOXAPARIN INJ 40 MG/0.4 ML SYR SQ SCH (20:45)
[2024-03-09] MEDS: DOXYCYCLINE HYCLATE 100 MG CAP PO ONE (20:46)
[2024-03-09] MEDS: guaiFENesin 600 MG TABCR PO SCH (20:46)
--- NOTE | 2024-03-10 06:27 | Electrocardiogram Report ---
Test Reason : Blood Pressure : */* mmHG Vent. Rate : 97 BPM Atrial Rate : 97 BPM P-R Int : 144 ms QRS Dur : 78 ms QT Int : 348 ms P-R-T Axes : 31 7 0 degrees QTcB Int : 441 ms Normal sinus rhythm Poor R wave progression, consider anterior AK vs. lead placement vs. LVH No previous ECGs available Confirmed by Sachin Cruz ([id number]) on 03/10/2024 6:27:03 AM Referred By: Elaine Burciaga Confirmed By: Sachin Cruz
[2024-03-10 08:00] LABS: Basophils # (auto) 0.07 K/uL (0.00-0.20); Basophils % (auto) 1.3 %; Eosinophils # (auto) 0.14 K/uL (0.00-0.50); Eosinophils % (auto) 2.6 %; Hematocrit (blood only) 40.5 % (37.0-47.0); Hemoglobin 13.2 g/dl (12.0-16.0); Immature Granulocytes # (auto) 0.04 K/uL (0.01-0.20); Immature Granulocytes % (auto) 0.7 %; Lymphocytes # (auto) 2.01 K/uL (1.20-3.40); Lymphocytes % (auto) 37.1 %; Mean Corpuscular Hemoglobin 28.6 pg (25.0-34.0); Mean Corpuscular Hgb Conc 32.6 g/dL (32.0-36.0); Mean Corpuscular Volume 87.7 fL (80.0-100.0); Mean Platelet Volume 8.9 fL (9.4-12.4); Monocytes # (auto) 0.46 K/uL (0.11-0.59); Monocytes % (auto) 8.5 %; Neutrophils % (auto) 49.8 %; Platelet Count 339 K/uL (130-400); RDW Coefficient of Variation 14.1 % (11.5-14.5); RDW Standard Deviation 44.6 fL (36.4-46.3); Red Blood Count 4.62 M/uL (4.20-5.40); White Blood Count 5.42 K/ul (4.8-10.8)
[2024-03-10 08:11] LABS: BUN Creatinine Ratio 14.1 (10-20); Potassium 4.1 mmol/L (3.5-5.1)
[2024-03-10] MEDS: AZITHROMYCIN 250 MG TAB PO ONE (11:56)
[2024-03-10 12:28] LABS: Adenovirus PCR Not Detected (NotDetected); Bordetella parapertussis PCR Not Detected (NotDetected); Bordetella pertussis PCR Not Detected (NotDetected); Chlamydia pneumoniae PCR Not Detected (NotDetected); Coronavirus 229E PCR Not Detected (NotDetected); Coronavirus CoV-2 (COVID19)PCR Not Detected (NotDetected); Coronavirus HKU1 PCR Not Detected (NotDetected); Coronavirus NL63 PCR Not Detected (NotDetected); Coronavirus OC43PCR Not Detected (NotDetected); Human Metapneumovirus PCR Not Detected (NotDetected); Influenza A PCR Not Detected (NotDetected); Influenza B PCR Not Detected (NotDetected); Mycoplasma pneumoniae PCR Not Detected (NotDetected); Parainfluenza Virus 1 PCR Not Detected (NotDetected); Parainfluenza Virus 2 PCR Not Detected (NotDetected); Parainfluenza Virus 3 PCR Not Detected (NotDetected); Parainfluenza Virus 4 PCR Not Detected (NotDetected); Respiratory Syncytial VirusPCR Not Detected (NotDetected); Rhinovirus/Enterovirus PCR Not Detected (NotDetected)
[2024-03-10] MEDS: cefTRIAXone SODIUM 2,000 MG/50 ML BAG IV SCH (12:51)
--- NOTE | 2024-03-10 14:05 | Hospitalist Progress Note ---
Date of Service March 10, 2024 Assessment & Plan (1) Multifocal pneumonia: Plan: Venus is a 43-year-old female with PMH of Crohn's disease on Stelara, celiac disease, psoriatic arthritis, who presents on 03/09 for SOB/dyspnea. Patient originally developed symptoms on New Years Jeanette: Fever, body aches, productive cough. SOB both at rest and with exertion. She was diagnosed with pneumonia in early February, and has been on outpatient treatment since with courses of Augmentin, doxycycline, and prednisone without improvement. Chest CTA on arrival revealed no PE, but did confirm multifocal bronchopneumonia with dense airspace consolidation within the RLL She is immune suppressed on Biologics for Crohn's disease Sputum culture ordered, pending Blood cultures no growth to date With leukocytosis now resolved MRSA swab negative Continue ceftriaxone and add azithromycin for atypical coverage Checked [employer] viral respiratory panel-negative Continue incentive spirometry, flutter valve Continue Tessalon Perles as needed for cough Continue DuoNeb Q6R Supplemental oxygen as needed; non-hypoxic on arrival She will need follow-up chest imaging to resolution in 4 to 6 weeks (2) Crohn's disease: Plan: Noted; patient receives Stelara injections every 4 weeks Hold off on this until pneumonia cleared Iron studies normal Constipation-add home Citrucel and add probiotic Plan VTE PPx: Lovenox 40 mg SQ q24h Disposition-continued stay but likely discharge to home tomorrow Admission and Anticipated Discharge Date Admission Date: March 09, 2024 Subjective Feeling better but still short of breath with walking around. Coughing up sputum. Having problems moving her bowels it is hard stool-requests probiotic and Citrucel. Physical Exam Constitutional: WD/WN, vitals as above Eyes: PERRL, conjunctivae normal, anicteric sclerae ENMT: external ear and nose normal, oropharynx normal Neck: trachea midline, no thyromegaly Respiratory: normal respiratory effort and + cough Auscultation: + crackles (Right middle lung field); no rhonchi and no wheezes Cardiovascular: RRR, no murmur, no edema Chest (Breasts): Chest: normal inspection of chest Gastrointestinal (Abdomen): normal bowel sounds, soft, nontender, no hepatosplenomegaly Musculoskeletal: Extremities: extremities normal to inspection; no cyanosis and no clubbing Skin: no rashes, warm and dry Neurologic: moves all extremities and awake; no focal motor deficits Psychiatric: A+Ox3, euthymic affect Lymphatic: no lymphedema Results & Data Results & Data Vital Signs (Past 12 Hours) Vital Signs Temp Pulse Resp BP Pulse Ox O2 Del Method 03/10/24 08:00 Room Air 03/10/24 07:26 36.8 C 84 18 108/75 94 Room Air Laboratory Results CBC, BMP, iron studies, blood cultures reviewed PG Care Time/CCT Total # of Minutes Spent Total Time Spent with Patient: Total time spent is greater than 50% in coordination of care (as documented) at patient's floor/unit and/or counseling patient: Coding Level of Care Code 20959 SUB INP/OBS CARE 2/35MIN Diagnoses Multifocal pneumonia J18.9 Crohn's disease K50.90
[2024-03-10] MEDS: SACCHAROMYCES BOULARDII 250 MG CAP PO SCH (15:14)
[2024-03-10] MEDS: METHYLCELLULOSE POWDER 454 GM JAR PO SCH (15:14)
[2024-03-10] MEDS: BENZONATATE 100 MG CAPSULE PO PRN (19:59)
[2024-03-10] MEDS: SODIUM CHLORIDE 0.9% 1,000 ML IV SCH (22:50)
[2024-03-11 06:26] LABS: Basophils # (auto) 0.07 K/uL (0.00-0.20); Basophils % (auto) 1.2 %; Eosinophils # (auto) 0.17 K/uL (0.00-0.50); Eosinophils % (auto) 2.8 %; Hematocrit (blood only) 36.1 % (37.0-47.0); Hemoglobin 11.8 g/dl (12.0-16.0); Immature Granulocytes # (auto) 0.02 K/uL (0.01-0.20); Immature Granulocytes % (auto) 0.3 %; Lymphocytes # (auto) 2.41 K/uL (1.20-3.40); Lymphocytes % (auto) 39.8 %; Mean Corpuscular Hemoglobin 28.6 pg (25.0-34.0); Mean Corpuscular Hgb Conc 32.7 g/dL (32.0-36.0); Mean Corpuscular Volume 87.4 fL (80.0-100.0); Monocytes # (auto) 0.51 K/uL (0.11-0.59); Monocytes % (auto) 8.4 %; Neutrophils # (auto) 2.88 K/uL (1.40-6.50); Neutrophils % (auto) 47.5 %; Platelet Count 281 K/uL (130-400); RDW Standard Deviation 44.6 fL (36.4-46.3); Red Blood Count 4.13 M/uL (4.20-5.40); White Blood Count 6.06 K/ul (4.8-10.8)
[2024-03-11 06:46] LABS: BUN Creatinine Ratio 14.7 (10-20); Calcium 8.3 mg/dl (8.6-10.3); Creatinine Clr Calc Pharmacy 115.4 ml/min; Potassium 3.8 mmol/L (3.5-5.1)
[2024-03-11 07:19] VITALS: BP 105/71; TEMP 98.1
[2024-03-11] MEDS: AZITHROMYCIN 250 MG TAB PO SCH (08:13)
[2024-03-11] MEDS ORDERED: guaiFENesin/DEXTROM SYRUP 200MG/20MG 10ML UDC PO PRN (08:18)
[2024-03-11] MEDS: ALBUT/IPRATROP 3MG/0.5MG NEB 3 ML VIAL NEB PRN (08:29)
--- NOTE | 2024-03-11 11:39 | Discharge Summary ---
Discharge Summary Date of Service March 11, 2024 Principal Dx & Hospital Course #1 = Principal Diagnosis (1) Multifocal pneumonia: Venus is a 43-year-old female with PMH of Crohn's disease on Stelara, celiac disease, psoriatic arthritis, who presents on 03/09 for SOB/dyspnea. Patient originally developed symptoms on Jeanette: Fever, body aches, productive cough. SOB both at rest and with exertion. She was diagnosed with pneumonia in early February, and has been on outpatient treatment since with courses of Augmentin, doxycycline, and prednisone without improvement. Chest CTA on arrival revealed no PE, but did confirm multifocal bronchopneumonia with dense airspace consolidation within the RLL She is immune suppressed on a biologic for Crohn's disease Sputum culture heavy growth of normal kristen Blood cultures no growth to date With leukocytosis now resolved, thrombocytosis now resolved (acute phase reactant), no fevers, feeling better but still with chest tightness improved somewhat with abuterol neb MRSA swab negative Received ceftriaxone and azithromycin for broad spectrum coverage for CAP Checked [employer] viral respiratory panel-negative Continue incentive spirometry, flutter valve Tessalon Perles made cough more dry and irritating-dc and try guaifenesin DM prn Will give albuterol inhaler for prn use with spacer after discharge Two step walk test performed and no supplemental O2 needed at rest or with exertion Recommend holding Stelara for an extra week to allow immune system to fight infection She will need follow-up chest imaging to resolution in 4 to 6 weeks (2) Crohn's disease: Noted; patient receives Stelara injections every 4 weeks Hold off on this until pneumonia cleared-delay by one week until 03/25 Iron studies normal Constipation-continue home home Citrucel and added probiotic Obesity-continue Zepbound Plan VTE PPx: Lovenox 40 mg SQ q24h Disposition-discharge to home today Notes For Next Care Provider Check Chest CT in 4-6 weeks Medication Changes From Visit Added azithromycin 250mg po daily x 3 more days Added Cefdinir 300mg po bid x 5 more days Added albuterol inhaler prn HOLD Stelara through 03/25/24 Admission HPI Per Admitting Provider Venus is a pleasant 43-year-old female with PMH of Crohn's disease, celiac disease, psoriatic arthritis, and uterine leiomyoma. She presented on 03/09 for workup for pulmonary embolism in the setting of recent pneumonia diagnosis. Patient originally developed symptoms on New 's Jeanette: Fever, body aches, productive cough. She endorses both SOB at rest and with exertion since that time. Patient was prescribed doxycycline and prednisone on 02/28, as well as amoxicillin on 03/02 after a chest x-ray came back positive for pneumonia. Despite completing course of both antibiotics and 5 days of prednisone, her symptoms have not improved. Her fevers have largely resolved, but she is still having night sweats, productive cough, body aches, orthopnea, and trouble breathing both at rest and with exertion. No blood in cough. However, she does have mild pleuritic chest pain, which she believes is secondary to frequent coughing. No personal history of DVT/PE, however her father does have a history of a PE, and was recommended that she come into the hospital to have a chest CTA performed. Patient does not take any medicine on daily basis. She has been taking ibuprofen, cough drops, and Delsym cough syrup for her symptoms at home. She does not have any prior episodes of pneumonia to her knowledge. She denies any past pulmonary history such as asthma or COPD. Allergies include Vicodin and codeine (which lead to nausea and vomiting); she denies a PCN allergy. Patient does not use supplemental oxygen at baseline or CPAP at night. No environmental exposures at work. She denies smoking, tobacco use, recent alcohol use. Patient's vitals are stable at time of admission. ED course: Ceftriaxone 2000 mg IV ROS: Patient endorses night-sweats, body aches, lightheadedness, SOB at rest and with exertion, orthopnea, productive cough (yellow sputum production), chest pain ("sore from coughing"), and pleuritic CP. Patient denies fever (resolved), nausea (resolved), diarrhea, changes in urinary/bowel habits, burning with urination, blood in the urine/stool, or numbness/tingling/swelling in the legs. Discharge Exam Constitutional WD/WN, vitals as above Neck trachea midline, no thyromegaly Respiratory normal respiratory effort and + cough Auscultation: + crackles (Right middle lung field); no rhonchi and no wheezes Cardiovascular RRR, no murmur, no edema Musculoskeletal Extremities: extremities normal to inspection; no cyanosis and no clubbing Skin no rashes, warm and dry Neurologic moves all extremities and awake; no focal motor deficits Psychiatric A+Ox3, euthymic affect Lymphatic no lymphedema Discharge Plan Discharge Items Patient Disposition: Home - Self-Care Reason For Visit: Community-acquired pneumonia Discharge Diagnosis: Community-acquired pneumonia Condition on Discharge: Good Activity: As commented below Bathing: No limitations Exercise/Sports: Gradually increase as tolerated Driving/Machine Use: No limitations Non-emergency contact: Primary Care Provider Call non-emergency contact if: you have any medication questions, your symptoms worsen and you have a fever Follow-up/Referrals: Elaine Burciaga [Primary Care Provider] - (Follow-up within 1 to 2 weeks) Diet: Regular Addtl Attending Provider Instructions: Please finish out 5 more days of the antibiotic called cefdinir 300 Mg by mouth twice a day. Please finish out 3 more days of another antibiotic called azithromycin 250 Mg by mouth once a day. You should have a repeat chest x-ray or chest CT in 4 to 6 weeks to ensure resolution of your pneumonia. You should remain off of your Stelara until your pneumonia is cleared up-please delay this by one week as we discussed. You can use the albuterol inhaler 2 puffs every 4-6 hours for chest tightness and cough. Pending Studies at Discharge: Yes (blood cultures-no growth to date) Stand-Alone Forms: My [facility] Medications and DC Order Prescriptions: New azithromycin 250 mg Tablet 250 mg PO QAM Qty: 3 0RF cefdinir 300 mg capsule 300 mg PO BID 5 Days Qty: 10 0RF dextromethorphan-guaifenesin [Robitussin Cough-Chest Stuart DM] 5-100 mg/5 mL Liquid 10 ml PO Q6H PRN (Reason: cough) Qty: 120 0RF Rx Instructions: OTC albuterol sulfate 90 mcg/actuation HFA aerosol inhaler 2 inh inhalation Q4H PRN (Reason: cough or chest tightness) Qty: 8.5 0RF (DME) Spacer for Inhaler Misc See Rx Instructions .Route Qty: 1 0RF Rx Instructions: use with albuterol inhaler q4h Continued azelastine 137 mcg (0.1 %) aerosol,spray 1 spray intranasal DIRECTED PRN (Reason: allergies) ibuprofen [Advil] 200 mg Tablet 400 mg PO QID PRN (Reason: Pain) multivitamin Tablet 1 tab PO DAILY Zepbound 10 mg/0.5 mL pen injector 10 mg SUBCUT Q7D Held Stelara 90 mg/mL syringe 90 mg subcut UD Hold Instructions: Resume on 03/25/24. Rx Instructions: as directed Discharge Orders: Discharge Order (Routine); Ordered 03/11/24 Ordered By: Nelia Abad Admission Data Admit Date/Time: 03/09/24 12:32 Attending Provider: Nelia Abad Admit Provider: Sae Godfrey Primary Care Provider: Elaine Burciaga Hospital Stay Data Diagnostic Imagining Performed 03/09/24 09:29 CT angio chest PE protocol Stat Pending Results Patient Have Any Pending Studies at Discharge: Yes (blood cultures-no growth to date) Discharge Instructions Given to Patient (Per Discharging Provider) Please finish out 5 more days of the antibiotic called cefdinir 300 Mg by mouth twice a day. Please finish out 3 more days of another antibiotic called azithromycin 250 Mg by mouth once a day. You should have a repeat chest x-ray or chest CT in 4 to 6 weeks to ensure resolution of your pneumonia. You should remain off of your Stelara until your pneumonia is cleared up-please delay this by one week as we discussed. You can use the albuterol inhaler 2 puffs every 4-6 hours for chest tightness and cough. Total Time Total Time Spent Total Time Spent (In Minutes): 35 min Total Time Includes: Examination of the Patient, Discharge Planning and Medication Reconciliation Coding Level of Care Code 31076 INP/OBS DISCH >30 MIN Diagnoses Multifocal pneumonia J18.9 Crohn's disease K50.90
[2024-03-11 11:41] VITALS: PULSE 88; RESP 16; O2SAT 95
== END 2024-03-11 16:58 | disposition home or self-care (01) | DRG 194 ==
LOC: ED 09:15 → EDINP 12:32 → SUATTDRO 12:32 → 3N 15:14
DX: L40.50 Arthropathic psoriasis, unspecified; K59.00 Constipation, unspecified; E66.9 Obesity, unspecified; J18.0 Bronchopneumonia, unspecified organism; K90.0 Celiac disease; K50.90 Crohn's disease, unspecified, without complications; Z88.5 Allergy status to narcotic agent